=== PATIENT | male | born 1935 | race Caucasian/White ===

== ENCOUNTER 2016-12-05 03:40 | Emergency (ER) | payer MEDICARE, OTHER ==
[2016-12-05] MEDS ORDERED: LISI-538 (03:58)
[2016-12-05] MEDS ORDERED: SIMV20TA2 (03:58)
[2016-12-05] MEDS ORDERED: GLIP5TAB8 (03:58)
[2016-12-05] MEDS ORDERED: FURO20TA2 (03:58)
[2016-12-05] MEDS ORDERED: METO-346 (03:58)
[2016-12-05] MEDS ORDERED: PIOG30TA4 (03:58)
[2016-12-05] MEDS ORDERED: METF500T (03:58)
[2016-12-05 06:24] VITALS: BP 153/71
== END 2016-12-05 06:26 | disposition home or self-care (01) ==
LOC: M ED 04:43
DX: R19.7 Diarrhea, unspecified (principal)

== ENCOUNTER → 2017-01-18 | Outpatient (REF) | payer MEDICARE, OTHER ==
[~2017-01-18] MED LIST: FURO20TA2; GLIP5TAB8; LISI-538; METF500T; METO-346; PIOG30TA4; SIMV20TA2
[2017-01-18 19:29] LABS: ALBUMIN 3.6 GM/DL (3.2-5.2); ALBUMIN/GLOBULIN RATIO 0.9 (1.00-1.93); BILIRUBIN,TOTAL 0.6 MG/DL (0.2-1.0); CALCIUM LEVEL 8.8 MG/DL (8.8-10.2); CREATININE FOR GFR 1.53 MG/DL (0.70-1.30); FREE T4 0.95 NG/DL (0.76-1.46); GLOMERULAR FILTRATION RATE 46.7 (>35); POTASSIUM SERUM 4.7 MEQ/L (3.5-5.1); TOTAL PROTEIN 7.6 GM/DL (6.4-8.2)
[2017-01-18 19:30] LABS: FOLATE 23.6 NG/ML
[2017-01-18 19:51] LABS: MEAN CORPUSCULAR HEMOGLOBIN 32.7 pg (27.0-33.0); MEAN CORPUSCULAR HGB CONC 31.6 g/dl (32.0-36.5); MEAN CORPUSCULAR VOLUME 103.6 fl (80.0-96.0); WHITE BLOOD COUNT 4.8 K/mm3 (4.0-10.0)
== END ==
LOC: M SFHCADAM 12:17
PROVIDERS: ATTEND Physician Assistant
DX: I10 Essential (primary) hypertension (principal); E11.22 Type 2 diabetes mellitus with diabetic chronic kidney disease; E53.8 Deficiency of other specified B group vitamins
CPT/HCPCS: 80053; 82043; 82607; 82746; 83036; 84439; 84443; 85027; G0463

== ENCOUNTER 2017-03-27 17:05 | Emergency (ER) | payer MEDICARE, OTHER ==
[~2017-03-27] VITALS: Ht 180.3 cm; Wt 144.1 kg
[~2017-03-27 17:05] MED LIST changes: -FURO20TA2; +FURO20TA2 PO; -GLIP5TAB8; +GLIP5TAB8 PO; -LISI-538; +LISI-538 PO; -METF500T; +METF500T13 PO; -PIOG30TA4; +PIOG30TA4 PO; -SIMV20TA2; +SIMV20TA2 PO
[2017-03-27] MEDS ORDERED: NS 1,000 ML IV SCH (17:49)
[2017-03-27] MEDS ORDERED: KETOROLAC 30 MG/ML VIAL (J1885) IV ONE (18:00)
[2017-03-27] MEDS ORDERED: ONDANSETRON 4MG/2ML VIAL (J2405) IV ONE (18:00)
[2017-03-27 18:10] LABS: BASO % 0.5 % (0.0-1.0); EOS # 0.1 K/mm3 (0.0-0.50); EOS % 1.8 % (0.0-3.0); LARGE UNSTAINED CELL # 0.2 K/mm3 (0.0-0.4); LARGE UNSTAINED CELL % 3.8 % (0.0-4.0); LYMPH # 0.9 K/mm3 (1.5-4.5); LYMPH % 13.1 % (24.0-44.0); MEAN CORPUSCULAR HEMOGLOBIN 31.9 pg (27.0-33.0); MEAN CORPUSCULAR HGB CONC 33.1 g/dl (32.0-36.5); MEAN CORPUSCULAR VOLUME 96.3 fl (80.0-96.0); MONO # 0.5 K/mm3 (0.0-0.8); NEUTROPHILS # 3.7 K/mm3 (1.8-7.7); NEUTROPHILS % 71.8 % (36.0-66.0); PLATELET COUNT, AUTOMATED 230 k/mm3 (150-450); WHITE BLOOD COUNT 5.1 K/mm3 (4.0-10.0)
[2017-03-27 18:16] LABS: INR 1.07
[2017-03-27 18:33] LABS: ALBUMIN 2.9 GM/DL (3.2-5.2); ALBUMIN/GLOBULIN RATIO 0.66 (1.00-1.93); BILIRUBIN,DIRECT 0.2 MG/DL (0.0-0.2); BILIRUBIN,TOTAL 0.5 MG/DL (0.2-1.0); CALCIUM LEVEL 9.3 MG/DL (8.8-10.2); CREATININE FOR GFR 1.3 MG/DL (0.70-1.30); GLOMERULAR FILTRATION RATE 56.4 (>35); POTASSIUM SERUM 4.7 MEQ/L (3.5-5.1); TOTAL PROTEIN 7.3 GM/DL (6.4-8.2)
--- NOTE | 2017-03-27 19:10 | REPUSA ---
CLINICAL HISTORY: Abdominal pain. Patient said upper abdominal pain. TECHNIQUE: Multiple axial, coronal, sagittal CT images were obtained through the abdomen and pelvis without administration of oral or IV contrast material. FINDINGS: The liver is of uniform attenuation without mass or defect. There is no intra or extrahepatic biliar y ductal dilatation. Multiple calcified splenic granulomas are present. The gallbladder is within no rmal limits. The pancreas is of normal contour and attenuation characteristics. There is no evidenc e of adrenal mass. There is a 4 x 3.7 cm cyst noted in the lower pole of the right kidney laterally containing calcifica tions in the medial wall. Both kidneys are atrophic, each measuring approximately 7 cm in length. The y are lobulated. There is a nonobstructing 3 mm calculus noted in the lower pole of the right kidney. No renal mass is seen. There is no evidence for appendicitis. There is no bowel wall thickening. No evidence for small or l arge bowel obstruction. There is extensive mesenteric and retroperitoneal lymphadenopathy, lymph nod es measure up to 4 cm in cross section. The findings are most compatible with lymphoproliferative dis order. Further evaluation is recommended with PET/CT. There is no evidence of intrinsic or extrinsic bladder mass. Prostate gland is mildly enlarged containing calcifications. There is nonspecific fatty infiltration involving the pelvis of uncertain etiology. There is no lymphadenopathy noted in the pelvis or pelvic sidewall. Central lobular emphysema is noted. A 10 mm calcified granuloma is noted in the right lung base. Imag es of the lung bases show no evidence of pleural or parenchymal mass. There are no pleural effusions . The bony structures are free of lytic or blastic lesions. Multilevel degenerative changes are seen i nvolving the thoracolumbar spine. Scattered calcifications are seen involving the aorta and major branches compatible with atherosclero sis. IMPRESSION: 1. Extensive mesenteric and retroperitoneal lymphadenopathy most compatible with lymphoproliferative disorder. Further evaluation with PET/CT is recommended. 2. Sequelae of prior granulomatous disease. 3. Emphysema. 4. Additional findings as above. Thank you for your kind referral of this patient. We appreciate the opportunity to participate in thi s patient's care.
[2017-03-27] MEDS ORDERED: NAPR500T PO (19:24)
[2017-03-27] MEDS ORDERED: ZOFR4TAB3 PO (19:24)
[2017-03-27 19:30] VITALS: BP 154/65
--- NOTE | 2017-03-28 07:30 | ED PDOC ---
Post-Departure Follow-Up radiology rpeort faxed to Sabrina Liu MD Mar 28, 2017 07:30
== END 2017-03-27 19:37 | disposition home or self-care (01) ==
LOC: M ED 17:05
DX: I88.0 Nonspecific mesenteric lymphadenitis (principal); E11.9 Type 2 diabetes mellitus without complications; I10 Essential (primary) hypertension; E78.4 Other hyperlipidemia; Z79.01 Long term (current) use of anticoagulants; Z87.891 Personal history of nicotine dependence
CPT/HCPCS: 74176; 80048; 80076; 82150; 83690; 85025; 85610; 96374; 96375; 99283; J1885; J2405

== ENCOUNTER → 2017-04-09 | Outpatient (REF) | payer MEDICARE, OTHER ==
[~2017-04-09] MED LIST changes: +ALLO15TA PO; +ASPI81TA85 PO; +ASPI81TAEC PO; +HYOS125TA PO; +LORA0.5T11 PO; +MAG400TA PO; +METO1TAB87 PO; +METO25TA4 PO; +MORP20SO3 PO; +NAPR1TAB86 PO; +NAPR500T PO; +OMEP20CA3 PO; +VITA100072 PO; +ZOFR4TAB3 PO; +ZYLO300T4 PO
[2017-04-09 20:21] LABS: BASO % 0.2 % (0.0-1.0); EOS % 0.3 % (0.0-3.0); LARGE UNSTAINED CELL # 0.2 K/mm3 (0.0-0.4); LARGE UNSTAINED CELL % 2.2 % (0.0-4.0); LYMPH % 12.4 % (24.0-44.0); MEAN CORPUSCULAR HEMOGLOBIN 30.9 pg (27.0-33.0); MEAN CORPUSCULAR HGB CONC 32.7 g/dl (32.0-36.5); MEAN CORPUSCULAR VOLUME 94.6 fl (80.0-96.0); MONO # 0.6 K/mm3 (0.0-0.8); MONO % 8.9 % (0.0-5.0); NEUTROPHILS # 5.4 K/mm3 (1.8-7.7); PLATELET COUNT, AUTOMATED 256 k/mm3 (150-450); RED CELL DISTRIBUTION WIDTH 13.3 % (11.5-14.5); WHITE BLOOD COUNT 7.2 K/mm3 (4.0-10.0)
[2017-04-09 20:33] LABS: ALBUMIN 2.6 GM/DL (3.2-5.2); ALBUMIN/GLOBULIN RATIO 0.63 (1.00-1.93); BILIRUBIN,TOTAL 0.9 MG/DL (0.2-1.0); CALCIUM LEVEL 9.2 MG/DL (8.8-10.2); CREATININE FOR GFR 1.44 MG/DL (0.70-1.30); GLOMERULAR FILTRATION RATE 50.1 (>35); PERCENT SATURATION 14.7 % (19.7-50.0); POTASSIUM SERUM 4.9 MEQ/L (3.5-5.1); TOTAL PROTEIN 6.7 GM/DL (6.4-8.2)
== END ==
LOC: M SFHCADAM 14:29
PROVIDERS: ATTEND Physician Assistant Medical
DX: R10.84 Generalized abdominal pain (principal); R59.0 Localized enlarged lymph nodes; R19.5 Other fecal abnormalities; R63.0 Anorexia; Z79.899 Other long term (current) drug therapy; D63.8 Anemia in other chronic diseases classified elsewhere; R63.4 Abnormal weight loss

== ENCOUNTER → 2017-04-09 | Outpatient (CLI) | payer MEDICARE, OTHER ==
--- NOTE | 2017-04-09 16:00 | REP ---
ABDOMEN, FLAT, UPRIGHT PA CHEST, FIVE VIEWS: HISTORY: Abdominal pain. Air is present in the small and large intestine. A single dilated loop of intestine is present. There are no air fluid levels. There is no pneumoperitoneum. A calcified granuloma is present in the right lower lobe. Calcified pleural plaque is present in the right hemithorax. IMPRESSION: 1. Nonspecific bowel gas pattern. 2. Old granulomatous disease. Signed by Manuel Nuñez MD 04/09/2017 04:05 P
== END ==
LOC: M ADAMS 14:38
PROVIDERS: ATTEND Physician Assistant Medical
DX: R10.84 Generalized abdominal pain (principal); R59.0 Localized enlarged lymph nodes; R19.5 Other fecal abnormalities; R63.0 Anorexia; R63.4 Abnormal weight loss

== ENCOUNTER 2017-04-14 19:08 | Inpatient (IN) | payer MEDICARE, OTHER ==
[~2017-04-14] VITALS: Ht 180.3 cm; Wt 138.6 kg
[~2017-04-14 19:08] MED LIST changes: -ALLO15TA PO; -ASPI81TA85 PO; -ASPI81TAEC PO; -HYOS125TA PO; -LORA0.5T11 PO; -MAG400TA PO; -METO1TAB87 PO; -METO25TA4 PO; -MORP20SO3 PO; -NAPR1TAB86 PO; -OMEP20CA3 PO; -VITA100072 PO; -ZYLO300T4 PO
[2017-04-14] MEDS ORDERED: ASPI81TA85 PO (19:20)
[2017-04-14] MEDS ORDERED: NS 500 ML IV ONE (20:30)
[2017-04-14] MEDS: HumaLOG INSULIN (NovoLOG) PER UNIT SC SCH (21:00)
[2017-04-14 21:06] LABS: BASO % 0.1 % (0.0-1.0); EOS # 0.1 K/mm3 (0.0-0.50); EOS % 1.3 % (0.0-3.0); LARGE UNSTAINED CELL # 0.1 K/mm3 (0.0-0.4); LARGE UNSTAINED CELL % 1.1 % (0.0-4.0); LYMPH # 0.6 K/mm3 (1.5-4.5); LYMPH % 8.7 % (24.0-44.0); MEAN CORPUSCULAR HEMOGLOBIN 30.2 pg (27.0-33.0); MEAN CORPUSCULAR HGB CONC 31.7 g/dl (32.0-36.5); MEAN CORPUSCULAR VOLUME 95.3 fl (80.0-96.0); MONO # 0.5 K/mm3 (0.0-0.8); NEUTROPHILS # 5.3 K/mm3 (1.8-7.7); NEUTROPHILS % 80.8 % (36.0-66.0); PLATELET COUNT, AUTOMATED 303 k/mm3 (150-450); RED CELL DISTRIBUTION WIDTH 13.6 % (11.5-14.5); WHITE BLOOD COUNT 6.5 K/mm3 (4.0-10.0)
[2017-04-14 21:14] LABS: INR 1.26
[2017-04-14 21:36] LABS: ALBUMIN 2.5 GM/DL (3.2-5.2); ALBUMIN/GLOBULIN RATIO 0.57 (1.00-1.93); ALKALINE PHOSPHATASE 185 U/L (45-117); ALT/SGPT 162 U/L (12-78); AMYLASE 87 U/L (25-115); ANION GAP 11 MEQ/L (8-16); AST/SGOT 110 U/L (15-37); BILIRUBIN,DIRECT 0.6 MG/DL (0.0-0.2); BILIRUBIN,TOTAL 1.1 MG/DL (0.2-1.0); BLOOD UREA NITROGEN 30 MG/DL (7-18); CALCIUM LEVEL 9.5 MG/DL (8.8-10.2); CARBON DIOXIDE LEVEL 25 MEQ/L (21-32); CHLORIDE LEVEL 97 MEQ/L (98-107); CREATININE FOR GFR 1.41 MG/DL (0.70-1.30); GLOMERULAR FILTRATION RATE 51.4 (>35); GLUCOSE, FASTING 150 MG/DL (83-110); SODIUM LEVEL 133 MEQ/L (136-145); TOTAL PROTEIN 6.9 GM/DL (6.4-8.2)
[2017-04-14] MEDS ORDERED: NS 1,000 ML IV SCH (21:45)
[2017-04-14] MEDS ORDERED: ISOVUE-370 76% 100ML VIAL (Q9967) As Ordered ONE (22:12)
[2017-04-14] MEDS ORDERED: LORazepam 2 MG/ML VIAL (J2060) IV ONE (22:15)
[2017-04-14] MEDS ORDERED: GLUCAGON FOR INJ 1 MG VIAL (J1610) SC PRN (23:30)
[2017-04-14] MEDS ORDERED: GLUCOSE 4 GM CHEW TABLET PO PRN (23:30)
[2017-04-14] MEDS ORDERED: DEXTROSE 50% 50 ML SYRINGE IV PRN (23:30)
[2017-04-14 23:32] LABS: RETIC HEMOGLOBIN CONTENT CHr 30.1 PG (24-36); RETICULOCYTE ABSOLUTE ADVIA212 80 x10(9)/L (17-77)
[2017-04-14 23:34] LABS: GAMMA GLUTAMYLTRANSPEPTIDASE 194 U/L (15-85); PERCENT SATURATION 16.9 % (19.7-50.0); TOTAL IRON BINDING CAPACITY 261 UG/DL (250-450)
[2017-04-14 23:40] LABS: REASON FOR REVIEW COMPREHENSIVE REVIEW
[2017-04-14] MEDS ORDERED: METO25TA4 PO (23:43)
--- NOTE | 2017-04-15 | REPUSA ---
CLINICAL HISTORY: LIPASE ELEVATION TECHNIQUE: Multiple axial, coronal, sagittal CT images were obtained through the abdomen and pelvis with administration of IV contrast material. FINDINGS: Comparison is made with a prior study dated 03/27/17. The liver is of uniform attenuation without mass or defect. There is no intra or extrahepatic biliary ductal dilatation. Multiple calcified splenic granulomas are present. The gallbladder is within ashley l limits. The pancreas is of normal contour and attenuation characteristics. There is no evidence of adrenal mass. There is a 4 x 3.7 cm cyst noted in the lower pole of the right kidney laterally containing calcifica tions in the medial wall. Both kidneys are atrophic, each measuring approximately 7 cm in length. They are lobulated. There is a nonobstructing 3 mm calculus noted in the lower pole of the right kidney. No renal mass is seen. There is no evidence for appendicitis. There is no bowel wall thickening. No evidence for small or large bowel obstruction. There is extensive mesenteric and retroperitoneal lymphadenopathy, lymph nodes measure up to 4 cm in cross section. The findings are most compatible with lymphoproliferative disorder. Further evaluation is recommended with PET/CT. There is no evidence of intrinsic or extrinsic bladder mass. Prostate gland is mildly enlarged containing calcifications. There is nonspecific fatty infiltration involving the pelvis of uncertain etiology. There is no lymphadenopathy noted in the pelvis or pelvic sidewall. Central lobular emphysema is noted. A 10 mm calcified granuloma is noted in the right lung base. Images of the lung bases show no evidence of pleural or parenchymal mass. There are no pleural effusions. The bony structures are free of lytic or blastic lesions. Multilevel degenerative changes are seen involving the thoracolumbar spine. Scattered calcifications are seen involving the aorta and major branches compatible with atherosclerosis. IMPRESSION: 1. No interval change. 2. Extensive mesenteric and retroperitoneal lymphadenopathy most compatible with lymphoproliferative disorder. Further evaluation with PET/CT was previously recommended. 3. Sequelae of prior granulomatous disease. 4. Emphysema. 5. Additional findings as above. Thank you for your kind referral of this patient. We appreciate the opportunity to participate in thi s patient's care.
[2017-04-15] MEDS ORDERED: METOCLOPRAMIDE INJ 10MG/2ML VIAL (J2765) IV PRN (00:30)
[2017-04-15] MEDS: MORPHINE 2 MG/ML 1ML SYRINGE IV PRN ×2 (01:17→09:53)
[2017-04-15 01:43] VITALS: BP 151/67
[2017-04-15] MEDS ORDERED: FUROSEMIDE 20 MG/2 ML VIAL (J1940) IV ONE (01:45)
[2017-04-15] MEDS ORDERED: LEVALBUTEROL 1.25 MG/0.5 ML CONCENTRATE NEB INH PRN (02:00)
[2017-04-15] MEDS: METOPROLOL TART 25 MG TABLET PO SCH ×3 (02:18→22:08)
--- NOTE | 2017-04-15 03:39 | HPE ---
DATE OF ADMISSION: 04/15/2017 PRIMARY CARE PROVIDER: Chelsea Mcbride, physician certified pharmacist assistant. Patient will be assigned to Dr. Ross Woodruff at 7 a.m. on 04/15/2017. CHIEF COMPLAINT: Abdominal pian. HISTORY OF PRESENTING ILLNESS: This is an 81-year-old male with history of chronic abdominal pain described as band-like in the bilateral lower quadrant accompanied with diarrhea 2-3 times a day, nonbloody, non-mucousy, formed with very watery diarrhea. No constipation, fever or chills at home. Patient describes the abdominal pain as steady and worsening over the past few days, improved slightly when he was taking smoothies. However, in the past 48 hours he has seen some increased abdominal distention, profound fatigue and weakness limiting his activities of daily living. Patient has had about a 10-pound weight loss over the past few days with decrease in oral intake and decrease in appetite. He denies any night sweats. No prior history of leukemias, lymphomas or other solid cancers. He denies any prior colonoscopy in the past. He was scheduled for a PET scan on Saturday04/16/2017 and has had on and off episodes of this abdominal pain over the past few months. Patient has not taken any medications for this pain. He denies any dysuria, urgency, frequency. Denies bright red blood per rectum, melena. Denies any hematuria or cocoa colored stool. Denies any joint or muscle aches, headaches, changes in vision, sore throat, rhinorrhea. He has chronic lower extremity edema and has had limitation of his activities due to generalized weakness. In the emergency room (ER), he was found to have abnormal liver function tests with elevated bilirubin at 1.1, GGT positive 194, despite denying any recent alcohol use, had quit alcohol about 26 years ago. Lipase level was slightly elevated at 396. Hospitalist service was called for admission for abdominal pain when CT abdomen and pelvis showed mesenteric and retroperitoneal lymphadenopathy measuring up to 4 cm compatible with lymphoproliferative disorder. PAST MEDICAL HISTORY: 1. Diabetes. 2. Hypertension. 3. Hypercholesterolemia. 4. Emphysema. 5. Chronic obstructive pulmonary disease (COPD). 6. History of SCC, BCC. 7. Osteoarthritis. 8. Coronary artery disease (CAD) with a stress echocardiogram April 2010 [facility], ischemia noted inferior apical wall. 9. Hypermagnesemia. 10. Macrocytic anemia. 11. Vitamin B12 deficiency. 12. Vitamin D deficiency. 13. 1.4 x 1.3 cm left infrahilar nodule on CT of the chest. 14. Peripheral edema, chronic due to venous insufficiency. 15. Chronic kidney disease stage III. 16. Repeat echocardiogram 04/02/2016, ejection fraction (EF) of 65%, normal diastolic function, moderate pulmonary hypertension. 17. Right knee osteoarthritis. ALLERGIES: No known drug allergies. HOME MEDICATIONS: - aspirin 81 mg daily - Lasix 20 mg daily - glipizide 7.5 mg daily - lisinopril 20 mg daily - metformin 1 gram twice a day - simvastatin 20 mg daily - pioglitazone 30 mg daily SOCIAL HISTORY: Patient denies any recent alcohol use, quit alcohol 26 years ago. Previously smoked cigarettes, history of COPD. Denies any recent cigarette use. Retired. FAMILY HISTORY: Noncontributory due to age. REVIEW OF SYSTEMS: Per history of present illness (HPI), 12-point systems otherwise negative. PHYSICAL EXAMINATION: Temperature 98.9, pulse 108 sinus rhythm, respiratory rate 16, blood pressure 120/56, 96% on room air. Generally, awake, alert, oriented times three, answering questions appropriately. Anicteric sclerae. No jaundice. Pupils are round and reactive to light and accommodation. Extraocular muscles are intact. Dry mucous membranes. No lymphadenopathy, thyromegaly or pharyngeal erythema. Lungs are clear to auscultation. No wheezing, rales or rhonchi. Heart: S1, S2, sinus tachycardia. No murmurs, rubs or gallops. Abdomen is obese, soft, distended. No rebound, guarding. Positive bowel sounds. No tenderness on deep palpation. Extremities: 2+ pitting edema to the sacrum. White count 6.5, hemoglobin 10.6, hematocrit 33.5, platelet count 303, 80% neutrophils. Reticulocyte count elevated. Peripheral smear is pending. Sodium 133, potassium 5, chloride 97, bicarbonate 25, BUN 30, creatinine 1.41, glucose 150, lactic acid 1.7, iron 44, TIBC 261, total bilirubin 1.1, direct bilirubin 0.6, GGT 194, AST 110, ALT 162, alkaline phosphatase 185, total CK 37, MB fraction 1.1, troponin less than 0.02. Total protein 6.9, albumin of 2.5, amylase 87, lipase 396. CT abdomen and pelvis extensive mesenteric retroperitoneal lymphadenopathy most compatible with lymphoproliferative disease. Further evaluation with PET and CT was previously recommended. Sequelae of prior granulomatous disease emphysema. ASSESSMENT AND PLAN: This is an 81-year-old male with a prior history significant for diabetes, hypertension, hypercholesterolemia, obesity, body mass index (BMI) of 42, chronic obstructive pulmonary disease (COPD), intralobular prior granulomatous disease, presents to the emergency room with several months history of increasing bilateral lower quadrant abdominal pain, found to have retroperitoneal extensive mesenteric lymphadenopathy compatible with possible lymphoproliferative disorder with worsening symptoms over the past week accompanied with 10-pound weight loss over the past few days. No fever, chills, with generalized fatigue and weakness. Patient has also been having diarrhea twice daily, watery, nonbloody, non-mucousy. Patient will be admitted as an inpatient for two midnights assigned to Dr. Ross Woodruff, [facility] as an inpatient for two midnights for the following issues: 1. Abdominal pain with transaminitis. CT abdomen and pelvis is concerning for possible lymphoproliferative disorder. Therefore, will obtain a peripheral blood smear, flow cytometry if possible, reticulocyte count, LDH, haptoglobin to rule out autoimmune hemolytic anemia. GGT is also elevated. Magnetic resonance cholangiopancreatography (MRCP) in the morning as ordered by Dr. Jiménez, emergency room (ER) physician, to rule out biliary ductal dilatation or strictures. Will also check for urine hemosiderin. Differential diagnosis includes chronic lymphocytic leukemia (CLL), chronic myelocytic leukemia (CML), PNH. Defer to Dr. Woodruff for hematology consultation. Malignancy to be worked up as outpatient with a PET scan scheduled for 04/16/2017 and directed biopsy per primary care physician. 2. Chronic kidney disease stage III. At baseline. Avoid nephrotoxins. Renally dose all medications. Resume home dose of Lasix. 3. Type 2 diabetes. Due to abdominal pain, a full liquid diet for now, advance as tolerated to consistent carbohydrate diet. Check A1c. We are withholding patient's oral hypoglycemic due to recent contrasted study and risk of contrast-induced nephropathy. At this time, will continue to monitor patient's creatinine. Insulin in sliding scale for now. Full liquid diet due to abdominal pain and advance to consistent carbohydrate as needed. 4. Hypertension, controlled. We are holding off on patient's angiotensin-converting enzyme (EMI) inhibitor due to recent contrast study and possible risk of nephropathy. May continue home dose of metoprolol. 5. Weight loss. Check thyroid-stimulating hormone (TSH). Concerning for malignancy. 6. Anemia. Rule out hemolytic anemia and gastrointestinal (GI) blood loss. Obtain iron studies. Stool for blood. Peripheral blood smear. Check haptoglobin, direct Antonette test, LDH. No acute indication for red blood cell transfusion unless patient has worsening symptoms or hemoglobin is less than 8. 7. Mild hyponatremia. Monitor for symptoms. 8. History of SCC, BCC, chronic. 9. Obesity, BMI of 42. Chronic complicating acute issues. 10. Deep venous thrombosis (DVT) prophylaxis with subcutaneous heparin and compression stockings. 11. Hyperlipidemia. On chronic simvastatin. Patient will be assigned to Dr. Ross Woodruff at 7 a.m. on 04/15/2017.
[2017-04-15 05:58] LABS: BASO % 0.2 % (0.0-1.0); EOS % 0.8 % (0.0-3.0); LARGE UNSTAINED CELL # 0.1 K/mm3 (0.0-0.4); LYMPH # 0.7 K/mm3 (1.5-4.5); LYMPH % 8.4 % (24.0-44.0); MEAN CORPUSCULAR HEMOGLOBIN 30.3 pg (27.0-33.0); MEAN CORPUSCULAR HGB CONC 31.8 g/dl (32.0-36.5); MEAN CORPUSCULAR VOLUME 95.4 fl (80.0-96.0); MONO # 0.6 K/mm3 (0.0-0.8); MONO % 8.8 % (0.0-5.0); NEUTROPHILS # 5.2 K/mm3 (1.8-7.7); NEUTROPHILS % 79.8 % (36.0-66.0); PLATELET COUNT, AUTOMATED 266 k/mm3 (150-450); RED CELL DISTRIBUTION WIDTH 13.5 % (11.5-14.5); WHITE BLOOD COUNT 6.5 K/mm3 (4.0-10.0)
[2017-04-15 06:00] VITALS: BP 130/60
[2017-04-15 06:22] LABS: ALBUMIN 2.2 GM/DL (3.2-5.2); ALBUMIN/GLOBULIN RATIO 0.58 (1.00-1.93); ALKALINE PHOSPHATASE 153 U/L (45-117); ALT/SGPT 124 U/L (12-78); AMYLASE 117 U/L (25-115); ANION GAP 11 MEQ/L (8-16); AST/SGOT 76 U/L (15-37); BLOOD UREA NITROGEN 24 MG/DL (7-18); CALCIUM LEVEL 8.3 MG/DL (8.8-10.2); CARBON DIOXIDE LEVEL 25 MEQ/L (21-32); CHLORIDE LEVEL 99 MEQ/L (98-107); CREATININE FOR GFR 1.34 MG/DL (0.70-1.30); GLOMERULAR FILTRATION RATE 54.5 (>35); GLUCOSE, FASTING 155 MG/DL (83-110); SODIUM LEVEL 135 MEQ/L (136-145)
[2017-04-15] MEDS: HEPARIN SOD (PORCINE) 5000 UNITS/ML VIAL SQ SCH ×3 (06:30→22:06)
[2017-04-15 06:36] LABS: POTASSIUM SERUM 5.5 MEQ/L (3.5-5.1)
[2017-04-15] MEDS: LEVALBUTEROL 1.25 MG/0.5 ML CONCENTRATE NEB INH SCH ×4 (07:23→19:26)
[2017-04-15] MEDS ORDERED: METOPROLOL TART 25 MG TABLET PO SCH (09:00)
[2017-04-15] MEDS: PANTOPRAZOLE 40MG TAB (PROTONIX) PO SCH (09:51)
[2017-04-15] MEDS: HumaLOG INSULIN (NovoLOG) PER UNIT SC SCH ×5 (09:51→22:07)
[2017-04-15] MEDS: FUROSEMIDE 20 MG TAB PO SCH (09:51)
[2017-04-15] MEDS ORDERED: LIDOCAINE 1% MDV 20ML VIAL As Ordered ONE (12:48)
--- NOTE | 2017-04-15 13:54 | IPNPDOC ---
Subjective Date Seen The patient was seen on 04/15/17. Subjective Chief Complaint/HPI The patient is a 81-year-old male admitted with a reason for visit of Abdominal Pain, Diarrhea,Mesenteric Lymphadenopaty. Events since last encounter Patient unable to proceed with MRCP today due to claustrophobia. CT + for mesenteric LAD. Patient admits to early satiety, weight loss. Nausea if eats a full meal. Was tolerating shakes at home. Constitutional: Reports: Weakness, Fatigue, Weight Loss, Lethargy, Denies: Chills, Fever, Night Sweats ENT: Denies: Head Aches, Ear Pain, Dysphagia Skin: Denies: Rash, Lesions, Breakdown Pulmonary: Reports: Dyspnea (with moderate activity), Denies: Cough Cardiovascular: Denies: Chest Pain, Palpitations, Orthopnea, Paroxysmal Noc. Dyspnea, Lt Headedness Gastrointestinal: Reports: Nausea, Other Symptoms (early satiety, poor appetite ), Denies: Vomiting, Abdominal Pain, Diarrhea, Constipation Genitourinary: Denies: Dysuria, Frequency, Incontinence, Retention Psych: Reports: Mood Normal, Denies: Depression, Memory Issues Objective Physical Examination General Exam: Positive: Alert, No Acute Distress Eye Exam: Positive: PERRLA, Conjunctiva & lids normal, EOMI, Negative: Sclera icteric ENT Exam: Positive: Atraumatic, Mucous membr. moist/pink, Pharynx Normal Neck Exam: Positive: Supple, Negative: JVD, thyromegaly Chest Exam: Positive: Clear to auscultation, Normal air movement Abdomen Exam: Positive: Normal bowel sounds, Soft, Negative: Tenderness, Hepatospenomegaly Extremity Exam: Positive: Normal pulses, Negative: Clubbing, Cyanosis, Edema Psych Exam: Positive: Mental status NL, Mood NL, Oriented x 3 Assessment /Plan Problems (1) Mesenteric lymphadenopathy Status: Acute Problem Text: plan for retroperitoneal bx with IR. Discussed with Dr. Albrecht. (2) Transaminitis Status: Acute Problem Text: Unabel to proceed with MRCP due to claustrophobia. Will monitor LFT. consider further imaging pending bx results/LFT. (3) Abdominal pain Status: Acute Problem Specific Plan: Monitor Clinically Problem Text: tolerating full liquids. will add on ensure. (4) Diabetes mellitus Status: Chronic Problem Text: [id number] 8.5 12/2016. RISS per protocol (5) HTN (hypertension) Status: Chronic Response to Treatment: Stable Problem Specific Plan: Monitor Clinically (6) Hyperlipidemia Status: Chronic Response to Treatment: Stable Problem Specific Plan: Monitor Clinically (7) CKD (chronic kidney disease), stage III Status: Chronic Response to Treatment: Stable Problem Specific Plan: Monitor Clinically Problem Text: baseline Cr. 1.3-1.4 Plan/VTE VTE Prophylaxis Ordered?: Yes VS, I&O, 24H, Fishbone Vital Signs/I&O Vital Signs Date Time Temp Pulse Resp B/P (MAP) Pulse Ox O2 Delivery O2 Flow Rate FiO2 04/15/17 10:03 18 04/15/17 06:00 98.6 102 130/60 (83) 95 Room Air I&O- Last 24 Hours up to 6 AM 04/15/17 05:59 Intake Total 500 ml Output Total 750 ml Balance -250 ml Laboratory Data 24H LABS Laboratory Tests 2 04/14/17 20:56: White Blood Count 6.5, Red Blood Count 3.51L, Hemoglobin 10.6L, Hematocrit 33.5L , Mean Corpuscular Volume 95.3, Mean Corpuscular Hemoglobin 30.2, Mean Corpuscular Hemoglobin Concent 31.7L, Red Cell Distribution Width 13.6, Platelet Count 303, Neutrophils (%) (Auto) 80.8H, Lymphocytes (%) (Auto) 8.7L, Monocytes (%) (Auto) 8.0H, Eosinophils (%) (Auto) 1.3, Basophils (%) (Auto) 0.1 , Neutrophils # (Auto) 5.3, Lymphocytes # (Auto) 0.6L, Monocytes # (Auto) 0.5, Eosinophils # (Auto) 0.1, Basophils # (Auto) 0.0, Large Unclassified Cells % 1.1 , Large Unclassified Cells # 0.1, Differential Slide Review Report, Differential Pathologist's Review COMPREHENSIVE REVIEW, Peripheral Blood Smear Path Consult PERIPHERAL SMEAR, Absolute Reticulocyte Count 80H, Percent Reticulocyte Count 2.30H, Reticulocyte Hgb Content (CHr) 30.1, Prothrombin Time 16.0H, Prothromb Time International Ratio 1.26, Activated Partial Thromboplast Time 31.5, Anion Gap 11, Glomerular Filtration Rate 51.4, Lactic Acid Level 1.7 , Calcium Level 9.5, Iron Level 44L, Total Iron Binding Capacity 261, Transferrin % Saturation 16.9L, Aspartate Amino Transf (AST/SGOT) 110H, Alanine Aminotransferase (ALT/SGPT) 162H, Gamma Glutamyl Transpeptidase 194H, Alkaline Phosphatase 185H, Total Bilirubin 1.1H, Direct Bilirubin 0.6H, Total Creatine Kinase 37L, Creatine Kinase MB 1.1, Creatine Kinase MB Relative Index 2.97, Troponin I < 0.02, Total Protein 6.9, Albumin 2.5L, Albumin/Globulin Ratio 0.57L , Amylase Level 87, Lipase 396H 04/14/17 22:35: Urine Appearance HAZY, Urine Color YELLOW, Urine pH 5.0, Urine Specific Dorr 1.013, Urine Protein NEGATIVE, Urine Glucose (UA) NEGATIVE, Urine Ketones NEGATIVE, Urine Urobilinogen 0.2, Urine Bilirubin NEGATIVE, Urine Leukocyte Esterase NEGATIVE, Urine Blood NEGATIVE, Urine Nitrite NEGATIVE, Urine WBC (Auto ) 3, Urine RBC (Auto) 3, Urine Hyaline Casts (Auto) 3, Urine Bacteria (Auto) NEGATIVE, Urine Squamous Epithelial Cells 0, Urine Mucus (Auto) SMALL, Urine Sperm (Auto) 04/15/17 01:49: Bedside Glucose (Misc Panel) 145H 04/15/17 05:44: White Blood Count 6.5, Red Blood Count 3.22L, Hemoglobin 9.7L, Hematocrit 30.7L , Mean Corpuscular Volume 95.4, Mean Corpuscular Hemoglobin 30.3, Mean Corpuscular Hemoglobin Concent 31.8L, Red Cell Distribution Width 13.5, Platelet Count 266, Neutrophils (%) (Auto) 79.8H, Lymphocytes (%) (Auto) 8.4L, Monocytes (%) (Auto) 8.8H, Eosinophils (%) (Auto) 0.8, Basophils (%) (Auto) 0.2 , Neutrophils # (Auto) 5.2, Lymphocytes # (Auto) 0.7L, Monocytes # (Auto) 0.6, Eosinophils # (Auto) 0.0, Basophils # (Auto) 0.0, Large Unclassified Cells % 2.0 , Large Unclassified Cells # 0.1, Anion Gap 11, Glomerular Filtration Rate 54.5 , Calcium Level 8.3L, Aspartate Amino Transf (AST/SGOT) 76H, Alanine Aminotransferase (ALT/SGPT) 124H, Alkaline Phosphatase 153H, Total Bilirubin 1.0 , Total Protein 6.0L, Albumin 2.2L, Albumin/Globulin Ratio 0.58L, Amylase Level 117H, Lipase 1026H, Blood Urea Nitrogen 24H, Creatinine 1.34H, Sodium Level 135L , Potassium Level 5.5H, Chloride Level 99, Carbon Dioxide Level 25, Lactate Dehydrogenase 308H, Hepatitis A IgM Antibody NEGATIVE, Hepatitis B Surface Antigen NEGATIVE, Hepatitis B Core IgM Antibody NEGATIVE, Hepatitis C Antibody Index 0.1 CBC/BMP Laboratory Tests 04/14/17 20:56 Red Blood Count 3.51 L, Mean Corpuscular Volume 95.3, Mean Corpuscular Hemoglobin 30.2, Mean Corpuscular Hemoglobin Concent 31.7 L, Red Cell Distribution Width 13.6, Neutrophils (%) (Auto) 80.8 H, Lymphocytes (%) (Auto) 8.7 L, Monocytes (%) (Auto) 8.0 H, Eosinophils (%) (Auto) 1.3, Basophils (%) ( Auto) 0.1, Neutrophils # (Auto) 5.3, Lymphocytes # (Auto) 0.6 L, Monocytes # ( Auto) 0.5, Eosinophils # (Auto) 0.1, Basophils # (Auto) 0.0 04/15/17 05:44 Red Blood Count 3.22 L, Mean Corpuscular Volume 95.4, Mean Corpuscular Hemoglobin 30.3, Mean Corpuscular Hemoglobin Concent 31.8 L, Red Cell Distribution Width 13.5, Neutrophils (%) (Auto) 79.8 H, Lymphocytes (%) (Auto) 8.4 L, Monocytes (%) (Auto) 8.8 H, Eosinophils (%) (Auto) 0.8, Basophils (%) ( Auto) 0.2, Neutrophils # (Auto) 5.2, Lymphocytes # (Auto) 0.7 L, Monocytes # ( Auto) 0.6, Eosinophils # (Auto) 0.0, Basophils # (Auto) 0.0, Calcium Level 8.3 L , Aspartate Amino Transf (AST/SGOT) 76 H, Alanine Aminotransferase (ALT/SGPT) 124 H, Lactate Dehydrogenase 308 H, Alkaline Phosphatase 153 H, Total Bilirubin 1.0, Total Protein 6.0 L, Albumin 2.2 L 04/15/17 10:16 Attending Note Attending Note In CT for Bx of retroperitoneal nodes, patient suddenly became fearful, disoriented and refused procedure. VS stable WNL except for HR 104. Will attempt again with some pre-procedure anxiolytic. Aparna Luna Apr 15, 2017 13:54 Ross Woodruff MD Apr 15, 2017 15:41
--- NOTE | 2017-04-15 17:20 | REP ---
CT GUIDED NEEDLE BIOPSY: The procedure was performed by KIMBERLEY Marcos under the direct supervision of Dr. Albrecht. The procedure along with its risks, benefits, and complications were discussed with the patient prior to the procedure. Informed consent was obtained both verbally and written. The patient was placed in a supine position on the CT table. The mesenteric lymph node was localized under CT guidance. The patient was prepped and draped in the usual sterile fashion. A procedural "time out" was performed to ensure that the correct patient, site and procedure were being performed. Local anesthesia was achieved using 10 mL of 1% Xylocaine. The needle was inserted under CT guidance. At this point in the procedure the patient decided that he was too uncomfortable and could not tolerate to complete the procedure. The procedure was terminated and I spoke with the patient's referring provider. They will try and get this achieved at a later date with sedation. Reviewed by KIMBERLEY Bermeo 04/16/2017 11:16 AEdited and Signed by Andrew Albrecht MD 04/16/2017 12:30 P
[2017-04-15] MEDS: LEVEMIR (INSULIN DETEMIR) 1 UNITS/0.01ML SC SCH (21:00)
[2017-04-15 22:00] VITALS: BP 134/58
[2017-04-15] MEDS: SIMVASTATIN 20 MG TAB PO SCH (22:07)
[2017-04-16 06:00] VITALS: BP 132/63
[2017-04-16] MEDS: HEPARIN SOD (PORCINE) 5000 UNITS/ML VIAL SQ SCH (06:07)
[2017-04-16 06:30] LABS: ALBUMIN 1.9 GM/DL (3.2-5.2); ALBUMIN/GLOBULIN RATIO 0.41 (1.00-1.93); CALCIUM LEVEL 8.7 MG/DL (8.8-10.2); CREATININE FOR GFR 1.48 MG/DL (0.70-1.30); GLOMERULAR FILTRATION RATE 48.6 (>35); POTASSIUM SERUM 4.9 MEQ/L (3.5-5.1); TOTAL PROTEIN 6.5 GM/DL (6.4-8.2)
[2017-04-16 06:42] LABS: BASO % 0.3 % (0.0-1.0); EOS % 0.1 % (0.0-3.0); LARGE UNSTAINED CELL # 0.2 K/mm3 (0.0-0.4); LARGE UNSTAINED CELL % 2.9 % (0.0-4.0); LYMPH # 0.5 K/mm3 (1.5-4.5); LYMPH % 6.7 % (24.0-44.0); MEAN CORPUSCULAR HEMOGLOBIN 30.2 pg (27.0-33.0); MEAN CORPUSCULAR HGB CONC 32.3 g/dl (32.0-36.5); MEAN CORPUSCULAR VOLUME 93.5 fl (80.0-96.0); MONO # 0.6 K/mm3 (0.0-0.8); MONO % 8.5 % (0.0-5.0); NEUTROPHILS # 5.5 K/mm3 (1.8-7.7); NEUTROPHILS % 81.5 % (36.0-66.0); PLATELET COUNT, AUTOMATED 266 k/mm3 (150-450); RED CELL DISTRIBUTION WIDTH 13.2 % (11.5-14.5); WHITE BLOOD COUNT 6.8 K/mm3 (4.0-10.0)
[2017-04-16] MEDS: LEVALBUTEROL 1.25 MG/0.5 ML CONCENTRATE NEB INH SCH ×4 (07:12→19:47)
[2017-04-16] MEDS: FUROSEMIDE 20 MG TAB PO SCH (08:42)
[2017-04-16] MEDS: METOPROLOL TART 25 MG TABLET PO SCH ×2 (08:44→20:12)
[2017-04-16] MEDS: HumaLOG INSULIN (NovoLOG) PER UNIT SC SCH ×4 (08:45→20:12)
[2017-04-16] MEDS: PANTOPRAZOLE 40MG TAB (PROTONIX) PO SCH (08:47)
[2017-04-16] MEDS ORDERED: LORazepam 2 MG/ML VIAL (J2060) IV ONE (10:00)
[2017-04-16] MEDS ORDERED: ACETAMINOPHEN TAB 650MG DOSE (2X325MG) PO ONE (10:00)
--- NOTE | 2017-04-16 10:05 | IPNPDOC ---
Subjective Date Seen The patient was seen on 04/16/17. Subjective Chief Complaint/HPI The patient is a 81-year-old male admitted with a reason for visit of Abdominal Pain, Diarrhea,Mesenteric Lymphadenopaty. Events since last encounter Unable to follow through with bx procedure due to anxiety/confusion. States ready to proceed today. Slept better last night. Tolerating full liquid diet. + flatus, no BM Constitutional: Denies: Chills, Fever, Night Sweats ENT: Denies: Head Aches, Ear Pain, Dysphagia Skin: Denies: Rash, Lesions, Breakdown Pulmonary: Denies: Dyspnea, Cough Cardiovascular: Denies: Chest Pain, Palpitations, Orthopnea, Paroxysmal Noc. Dyspnea, Lt Headedness Gastrointestinal: Denies: Nausea, Vomiting, Abdominal Pain, Diarrhea, Constipation Genitourinary: Denies: Dysuria, Frequency, Incontinence, Retention Psych: Reports: Mood Normal, Denies: Depression, Memory Issues Objective Physical Examination General Exam: Positive: Alert, No Acute Distress Eye Exam: Positive: PERRLA, Conjunctiva & lids normal, EOMI, Negative: Sclera icteric ENT Exam: Positive: Atraumatic, Mucous membr. moist/pink, Pharynx Normal Neck Exam: Positive: Supple, Negative: JVD, thyromegaly Chest Exam: Positive: Clear to auscultation, Normal air movement Abdomen Exam: Positive: Normal bowel sounds, Soft, Negative: Tenderness, Hepatospenomegaly Extremity Exam: Positive: Normal pulses, Negative: Clubbing, Cyanosis, Edema Psych Exam: Positive: Mental status NL, Mood NL, Oriented x 3 Assessment /Plan Problems (1) Mesenteric lymphadenopathy Status: Acute Problem Text: Re-attempt bx today. Pre-med with Lorazepam and Tylenol. plan for retroperitoneal bx with IR. Discussed with Dr. Albrecht. (2) Transaminitis Status: Acute Problem Text: LFT improved today. re-eval lipase and ammonia level. Unable to proceed with MRCP due to claustrophobia. Will monitor LFT. consider further imaging pending bx results/LFT. (3) Abdominal pain Status: Acute Problem Specific Plan: Monitor Clinically Problem Text: tolerating full liquids. will add on ensure. (4) Diabetes mellitus Status: Chronic Problem Text: hgba1c 8.5 12/2016. RISS per protocol (5) HTN (hypertension) Status: Chronic Response to Treatment: Stable Problem Specific Plan: Monitor Clinically (6) Hyperlipidemia Status: Chronic Response to Treatment: Stable Problem Specific Plan: Monitor Clinically (7) CKD (chronic kidney disease), stage III Status: Chronic Response to Treatment: Stable Problem Specific Plan: Monitor Clinically Problem Text: baseline Cr. 1.3-1.4 Plan/VTE VTE Prophylaxis Ordered?: Yes VS, I&O, 24H, Fishbone Vital Signs/I&O Vital Signs Date Time Temp Pulse Resp B/P (MAP) Pulse Ox O2 Delivery O2 Flow Rate FiO2 04/16/17 08:44 122 134/63 04/16/17 06:00 98.7 19 92 Room Air I&O- Last 24 Hours up to 6 AM 04/16/17 06:00 Intake Total 360 ml Output Total 0 ml Balance 360 ml Laboratory Data 24H LABS Laboratory Tests 2 04/15/17 17:06: Bedside Glucose (Misc Panel) 249H 04/15/17 20:25: Bedside Glucose (Misc Panel) 258H 04/16/17 05:47: Anion Gap 9, Glomerular Filtration Rate 48.6, Blood Urea Nitrogen 24H, Creatinine 1.48H, Sodium Level 134L, Potassium Level 4.9, Chloride Level 99, Carbon Dioxide Level 26, Calcium Level 8.7L, Aspartate Amino Transf (AST/SGOT) 43H, Alanine Aminotransferase (ALT/SGPT) 86H, Alkaline Phosphatase 126H, Total Bilirubin 1.0, Total Protein 6.5, Albumin 1.9L, Albumin/Globulin Ratio 0.41L 04/16/17 05:48: White Blood Count 6.8, Red Blood Count 3.00L, Hemoglobin 9.1L, Hematocrit 28.0L , Mean Corpuscular Volume 93.5, Mean Corpuscular Hemoglobin 30.2, Mean Corpuscular Hemoglobin Concent 32.3, Red Cell Distribution Width 13.2, Platelet Count 266, Neutrophils (%) (Auto) 81.5H, Lymphocytes (%) (Auto) 6.7L, Monocytes (%) (Auto) 8.5H, Eosinophils (%) (Auto) 0.1, Basophils (%) (Auto) 0.3, Neutrophils # (Auto) 5.5, Lymphocytes # (Auto) 0.5L, Monocytes # (Auto) 0.6, Eosinophils # (Auto) 0.0, Basophils # (Auto) 0.0, Large Unclassified Cells % 2.9 , Large Unclassified Cells # 0.2 CBC/BMP Laboratory Tests 04/15/17 10:16 04/16/17 05:47 Calcium Level 8.7 L, Aspartate Amino Transf (AST/SGOT) 43 H, Alanine Aminotransferase (ALT/SGPT) 86 H, Alkaline Phosphatase 126 H, Total Bilirubin 1.0, Total Protein 6.5, Albumin 1.9 L 04/16/17 05:48 Red Blood Count 3.00 L, Mean Corpuscular Volume 93.5, Mean Corpuscular Hemoglobin 30.2, Mean Corpuscular Hemoglobin Concent 32.3, Red Cell Distribution Width 13.2, Neutrophils (%) (Auto) 81.5 H, Lymphocytes (%) (Auto) 6.7 L, Monocytes (%) (Auto) 8.5 H, Eosinophils (%) (Auto) 0.1, Basophils (%) ( Auto) 0.3, Neutrophils # (Auto) 5.5, Lymphocytes # (Auto) 0.5 L, Monocytes # ( Auto) 0.6, Eosinophils # (Auto) 0.0, Basophils # (Auto) 0.0 Aparna Luna Apr 16, 2017 10:05 Ross Woodruff MD Apr 17, 2017 15:55
[2017-04-16] MEDS ORDERED: LIDOCAINE 1% MDV 20ML VIAL As Ordered ONE (12:06)
[2017-04-16 14:00] VITALS: BP 113/57
--- NOTE | 2017-04-16 18:24 | REP ---
CT GUIDED MESENTERIC LYMPH NODE BIOPSY: The procedure was performed by KIMBERLEY Marcos under the direct supervision of Dr. Albrecht. The procedure along with its risks, benefits, and complications were discussed with the patient prior to the procedure. Informed consent was obtained both verbally and written. The patient was placed in a supine position on the CT table. The mesenteric lymph node of concern was localized under CT guidance. The patient was prepped and draped in the usual sterile fashion. A procedural "time-out" was performed to ensure that the correct patient, site and procedure were being performed. Local infiltrative anesthesia was achieved using 1% Xylocaine. The guide needle was inserted under CT guidance. It was extended to the edge of the lymph node. Four core biopsy specimens were obtained. These were sent to pathology for further evaluation. The patient tolerated the procedure well. He was discharged back to his room. Reviewed by KIMBERLEY Bermeo 04/17/2017 08:17 AEdited and Signed by Andrew Albrecht MD 04/17/2017 05:03 P
[2017-04-16 20:10] VITALS: BP 123/58
[2017-04-16] MEDS: SIMVASTATIN 20 MG TAB PO SCH (20:11)
[2017-04-16] MEDS: LEVEMIR (INSULIN DETEMIR) 1 UNITS/0.01ML SC SCH (20:12)
[2017-04-17 06:00] VITALS: BP 129/66
[2017-04-17 06:23] LABS: BASO % 0.2 % (0.0-1.0); EOS % 0.4 % (0.0-3.0); LARGE UNSTAINED CELL # 0.1 K/mm3 (0.0-0.4); LARGE UNSTAINED CELL % 1.9 % (0.0-4.0); LYMPH # 0.6 K/mm3 (1.5-4.5); LYMPH % 7.9 % (24.0-44.0); MEAN CORPUSCULAR HEMOGLOBIN 30.5 pg (27.0-33.0); MEAN CORPUSCULAR HGB CONC 32.4 g/dl (32.0-36.5); MEAN CORPUSCULAR VOLUME 94.4 fl (80.0-96.0); MONO # 0.4 K/mm3 (0.0-0.8); MONO % 6.3 % (0.0-5.0); NEUTROPHILS # 5.4 K/mm3 (1.8-7.7); NEUTROPHILS % 83.3 % (36.0-66.0); PLATELET COUNT, AUTOMATED 279 k/mm3 (150-450); RED CELL DISTRIBUTION WIDTH 13.3 % (11.5-14.5); WHITE BLOOD COUNT 6.4 K/mm3 (4.0-10.0)
[2017-04-17 06:42] LABS: ALBUMIN 1.9 GM/DL (3.2-5.2); ALBUMIN/GLOBULIN RATIO 0.4 (1.00-1.93); CALCIUM LEVEL 9.1 MG/DL (8.8-10.2); CREATININE FOR GFR 1.54 MG/DL (0.70-1.30); GLOMERULAR FILTRATION RATE 46.4 (>35); POTASSIUM SERUM 4.9 MEQ/L (3.5-5.1); TOTAL PROTEIN 6.7 GM/DL (6.4-8.2)
[2017-04-17] MEDS: LEVALBUTEROL 1.25 MG/0.5 ML CONCENTRATE NEB INH SCH ×4 (08:00→19:42)
--- NOTE | 2017-04-17 08:37 | IPNPDOC ---
Subjective Date Seen The patient was seen on 04/17/17. Subjective Chief Complaint/HPI The patient is a 81-year-old male admitted with a reason for visit of Abdominal Pain, Diarrhea,Mesenteric Lymphadenopaty. Events since last encounter Tolerated bx procedure well. Pathology is pending. Family brought in shrimp yesterday and patient tolerated well. Requesting to advance diet. BM x 1 this am. Urinating multiple times, not using urinal. OOB to BR w/o difficulty. Constitutional: Denies: Chills, Fever, Night Sweats Skin: Denies: Rash, Lesions, Breakdown Pulmonary: Denies: Dyspnea, Cough Cardiovascular: Denies: Chest Pain, Palpitations, Orthopnea, Paroxysmal Noc. Dyspnea, Lt Headedness Gastrointestinal: Denies: Nausea, Vomiting, Abdominal Pain, Diarrhea, Constipation Genitourinary: Denies: Dysuria, Frequency, Incontinence, Retention Psych: Reports: Mood Normal, Denies: Depression, Memory Issues Objective Physical Examination General Exam: Positive: Alert, No Acute Distress Eye Exam: Positive: PERRLA, Conjunctiva & lids normal, EOMI, Negative: Sclera icteric ENT Exam: Positive: Atraumatic, Mucous membr. moist/pink, Pharynx Normal Neck Exam: Positive: Supple, Negative: JVD, thyromegaly Chest Exam: Positive: Clear to auscultation, Normal air movement Abdomen Exam: Positive: Normal bowel sounds, Soft, Negative: Tenderness, Hepatospenomegaly Extremity Exam: Positive: Normal pulses, Negative: Clubbing, Cyanosis, Edema Psych Exam: Positive: Mental status NL, Mood NL, Oriented x 3 Assessment /Plan Problems (1) Mesenteric lymphadenopathy Status: Acute Problem Text: 04/17/17: bx completed on 04/16/17. Pathology reveals malignant lymphoma. Re-attempt bx today. Pre-med with Lorazepam and Tylenol. plan for retroperitoneal bx with IR. Discussed with Dr. Albrecht. (2) Transaminitis Status: Acute Problem Text: 04/17/17: LFTS near normal. Ammonia level and lipase normal values. LFT improved today. re-eval lipase and ammonia level. Unable to proceed with MRCP due to claustrophobia. Will monitor LFT. consider further imaging pending bx results/LFT. (3) Abdominal pain Status: Acute Problem Specific Plan: Monitor Clinically Problem Text: 04/17/17: advance diet. tolerating full liquids. will add on ensure. (4) Diabetes mellitus Status: Chronic Problem Text: hgba1c 8.5 12/2016. RISS per protocol (5) HTN (hypertension) Status: Chronic Response to Treatment: Stable Problem Specific Plan: Monitor Clinically (6) Hyperlipidemia Status: Chronic Response to Treatment: Stable Problem Specific Plan: Monitor Clinically (7) CKD (chronic kidney disease), stage III Status: Chronic Response to Treatment: Stable Problem Specific Plan: Monitor Clinically Problem Text: 04/17/17: add on IVF x 1-2 liters today, BUN 26 Cr. 1.54. Patient admits to poo hydration over last several days. baseline Cr. 1.3-1.4 Plan/VTE VTE Prophylaxis Ordered?: Yes VS, I&O, 24H, Fishbone Vital Signs/I&O Vital Signs Date Time Temp Pulse Resp B/P (MAP) Pulse Ox O2 Delivery O2 Flow Rate FiO2 04/17/17 06:00 99.1 103 18 129/66 (87) 95 Room Air I&O- Last 24 Hours up to 6 AM 04/17/17 05:59 Intake Total 1020 ml Output Total 0 ml Balance 1020 ml Laboratory Data 24H LABS Laboratory Tests 2 04/16/17 10:06: Ammonia < 10, Lipase 189 04/16/17 13:33: Bedside Glucose (Misc Panel) 362H 04/16/17 16:44: Bedside Glucose (Misc Panel) 233H 04/16/17 19:52: Bedside Glucose (Misc Panel) 163H 04/17/17 05:35: White Blood Count 6.4, Red Blood Count 3.06L, Hemoglobin 9.4L, Hematocrit 28.9L , Mean Corpuscular Volume 94.4, Mean Corpuscular Hemoglobin 30.5, Mean Corpuscular Hemoglobin Concent 32.4, Red Cell Distribution Width 13.3, Platelet Count 279, Neutrophils (%) (Auto) 83.3H, Lymphocytes (%) (Auto) 7.9L, Monocytes (%) (Auto) 6.3H, Eosinophils (%) (Auto) 0.4, Basophils (%) (Auto) 0.2, Neutrophils # (Auto) 5.4, Lymphocytes # (Auto) 0.6L, Monocytes # (Auto) 0.4, Eosinophils # (Auto) 0.0, Basophils # (Auto) 0.0, Large Unclassified Cells % 1.9 , Large Unclassified Cells # 0.1, Anion Gap 12, Glomerular Filtration Rate 46.4 , Blood Urea Nitrogen 26H, Creatinine 1.54H, Sodium Level 136, Potassium Level 4.9, Chloride Level 99, Carbon Dioxide Level 25, Calcium Level 9.1, Aspartate Amino Transf (AST/SGOT) 50H, Alanine Aminotransferase (ALT/SGPT) 75, Alkaline Phosphatase 124H, Total Bilirubin 1.0, Total Protein 6.7, Albumin 1.9L, Albumin/ Globulin Ratio 0.40L, Lipase 168 CBC/BMP Laboratory Tests 04/17/17 05:35 Red Blood Count 3.06 L, Mean Corpuscular Volume 94.4, Mean Corpuscular Hemoglobin 30.5, Mean Corpuscular Hemoglobin Concent 32.4, Red Cell Distribution Width 13.3, Neutrophils (%) (Auto) 83.3 H, Lymphocytes (%) (Auto) 7.9 L, Monocytes (%) (Auto) 6.3 H, Eosinophils (%) (Auto) 0.4, Basophils (%) ( Auto) 0.2, Neutrophils # (Auto) 5.4, Lymphocytes # (Auto) 0.6 L, Monocytes # ( Auto) 0.4, Eosinophils # (Auto) 0.0, Basophils # (Auto) 0.0, Calcium Level 9.1, Aspartate Amino Transf (AST/SGOT) 50 H, Alanine Aminotransferase (ALT/SGPT) 75, Alkaline Phosphatase 124 H, Total Bilirubin 1.0, Total Protein 6.7, Albumin 1.9 L Aparna Luna Apr 17, 2017 08:37 Ross Woodruff MD Apr 17, 2017 15:57
[2017-04-17] MEDS: FUROSEMIDE 20 MG TAB PO SCH (08:40)
[2017-04-17] MEDS: PANTOPRAZOLE 40MG TAB (PROTONIX) PO SCH (08:40)
[2017-04-17] MEDS: METOPROLOL TART 25 MG TABLET PO SCH ×2 (08:40→20:41)
[2017-04-17] MEDS: HumaLOG INSULIN (NovoLOG) PER UNIT SC SCH ×4 (08:41→21:53)
[2017-04-17] MEDS: NS 1,000 ML IV SCH ×2 (08:45→17:48)
[2017-04-17 14:00] VITALS: BP 113/55
[2017-04-17] MEDS: HEPARIN SOD (PORCINE) 5000 UNITS/ML VIAL SQ SCH ×2 (17:01→20:40)
[2017-04-17] MEDS: SIMVASTATIN 20 MG TAB PO SCH (20:40)
[2017-04-17] MEDS: LEVEMIR (INSULIN DETEMIR) 1 UNITS/0.01ML SC SCH (20:40)
[2017-04-17 21:05] VITALS: BP 131/59
[2017-04-18] MEDS: NS 1,000 ML IV SCH (04:51)
[2017-04-18 05:11] VITALS: BP 120/54
[2017-04-18] MEDS: HEPARIN SOD (PORCINE) 5000 UNITS/ML VIAL SQ SCH (05:44)
[2017-04-18 06:44] LABS: BASO % 0.1 % (0.0-1.0); EOS % 0.6 % (0.0-3.0); LARGE UNSTAINED CELL # 0.1 K/mm3 (0.0-0.4); LARGE UNSTAINED CELL % 2.5 % (0.0-4.0); LYMPH # 0.6 K/mm3 (1.5-4.5); LYMPH % 8.1 % (24.0-44.0); MEAN CORPUSCULAR HGB CONC 31.9 g/dl (32.0-36.5); MONO # 0.5 K/mm3 (0.0-0.8); MONO % 8.7 % (0.0-5.0); NEUTROPHILS # 4.2 K/mm3 (1.8-7.7); PLATELET COUNT, AUTOMATED 275 k/mm3 (150-450); RED CELL DISTRIBUTION WIDTH 13.4 % (11.5-14.5); WHITE BLOOD COUNT 5.2 K/mm3 (4.0-10.0)
[2017-04-18 07:07] LABS: ALBUMIN 1.8 GM/DL (3.2-5.2); ALBUMIN/GLOBULIN RATIO 0.39 (1.00-1.93); BILIRUBIN,TOTAL 0.7 MG/DL (0.2-1.0); CALCIUM LEVEL 8.5 MG/DL (8.8-10.2); CREATININE FOR GFR 1.26 MG/DL (0.70-1.30); GLOMERULAR FILTRATION RATE 58.5 (>35); POTASSIUM SERUM 4.8 MEQ/L (3.5-5.1); TOTAL PROTEIN 6.4 GM/DL (6.4-8.2)
[2017-04-18] MEDS: LEVALBUTEROL 1.25 MG/0.5 ML CONCENTRATE NEB INH SCH ×3 (07:17→12:00)
[2017-04-18] MEDS: PANTOPRAZOLE 40MG TAB (PROTONIX) PO SCH (08:45)
[2017-04-18] MEDS: HumaLOG INSULIN (NovoLOG) PER UNIT SC SCH ×2 (08:45→12:24)
[2017-04-18 08:46] VITALS: BP 120/54
[2017-04-18] MEDS: FUROSEMIDE 20 MG TAB PO SCH (08:46)
[2017-04-18] MEDS: METOPROLOL TART 25 MG TABLET PO SCH (08:46)
--- NOTE | 2017-04-20 14:40 | DSES ---
DATE OF ADMISSION: 04/15/2017 DATE OF DISCHARGE: 04/18/2017 ATTENDING PHYSICIAN: Ross Woodruff MD PRIMARY CARE PROVIDER: JACKIE Hernández HISTORY OF PRESENT ILLNESS: This is an 81-year-old gentleman presented to the emergency room for acute abdominal pain with diarrhea for a 2 to 3 day history. The patient was noted to have elevated LFTs without recent alcohol use, elevated lipase. CT of the pelvis showed mesenteric and retroperitoneal lymphadenopathy measuring up to 4 cm compatible with lymphoproliferative disorder. The patient was subsequently admitted to Family Medicine Service. HOSPITAL COURSE: The patient initially went for retroperitoneal biopsy which was unsuccessful due to the patient's anxiety. With premedication, the patient was able to proceed with retroperitoneal biopsy on 04/16/2017. MRCP was ordered secondary to pancreatitis. The patient was unable to proceed secondary to significant claustrophobia and refused to proceed with the testing. The patient's activity has maintained at baseline. The patient's diet has been advanced and has tolerated regular food for the last 24 to 48 hours without diarrhea, abdominal pain or vomiting. The patient's LFTs have nearly normalized. The patient did have an elevation of his creatinine up to 1.54 felt secondary to poor by mouth intake. Did resolve with IV fluid infusion. The patient's lipase was as high as 1026, most recent 168. The patient is also noting to have a low albumin level at 1.8. The patient's biopsy did return positive for malignant lymphoma. The patient and family are aware and are considering oncology choices at this time. PHYSICAL EXAMINATION: VITAL SIGNS: Stable. He is afebrile. GENERAL: The patient is alert and oriented times three. Visiting with daughter. HEENT: Neck is supple without lymphadenopathy or jugular venous distention (JVD) . CARDIOVASCULAR: Heart rate and rhythm are regular. PULMONARY: Lungs are clear. ABDOMEN: Soft and nontender with positive bowel sounds times all four quadrants. BILATERAL LOWER EXTREMITIES: Without knee edema. NEUROLOGICAL: No resting tremors appreciated. DISCHARGE DIAGNOSES: 1. Malignant lymphoma. 2. Abdominal pain with diarrhea. 3. Elevated LFTs. 4. Elevated lipase. Questionable pancreatitis. SECONDARY DIAGNOSES: Include: 1. Diabetes. 2. Hypertension. 3. Hyperlipidemia. 4. Chronic kidney disease, stage III. PLAN: The patient will be discharged home. Activity is as tolerated. Diet is as tolerated. It was recommended that patient proceed with physical therapy in the home. [facility] referral will be initiated. He will followup with his primary care provider within the next 5 days and at that time oncology referral will be initiated. The patient had some significant questions regarding diabetes medication. The patient's renal function did remain stable and we will continue with his routine medications, however, primary care provider may want to consider adjusting metformin with repeat labs if creatinine continues to rise. DISCHARGE MEDICATIONS: Are as follows: 1. Aspirin 81 mg daily 2. Furosemide 20 mg daily 3. Glipizide 7.5 mg daily 4. Lisinopril 20 mg daily 5. Metformin 1000 mg by mouth twice a day 6. Metoprolol 25 mg by mouth twice a day 7. Glitazone 30 mg by mouth daily 8. Simvastatin 20 mg daily The patient is discharged in stable satisfactory condition with no further questions at time of discharge. All plans were discussed with patient and his daughter. TRESSA
== END 2017-04-18 13:50 | disposition home health service (06) | DRG 823 ==
LOC: M ED 19:08 → M ED INP 04-15 00:16 → M MSPAV 04-15 01:45
PROVIDERS: ADMIT General Practice; ATTEND Family Medicine
PROC: 07BB3ZX Excision of Mesenteric Lymphatic, Percutaneous Approach, Diagnostic (ICD-10-PCS; principal; 2017-04-16)
DX: C83.33 Diffuse large B-cell lymphoma, intra-abdominal lymph nodes (principal); K85.90 Acute pancreatitis without necrosis or infection, unspecified; Z68.41 Body mass index [BMI] 40.0-44.9, adult; E87.1 Hypo-osmolality and hyponatremia; E11.9 Type 2 diabetes mellitus without complications; I12.9 Hypertensive chronic kidney disease with stage 1 through stage 4 chronic kidney disease, or unspecified chronic kidney disease; E78.00 Pure hypercholesterolemia, unspecified; J44.9 Chronic obstructive pulmonary disease, unspecified; I25.10 Atherosclerotic heart disease of native coronary artery without angina pectoris; D53.9 Nutritional anemia, unspecified; E53.8 Deficiency of other specified B group vitamins; R63.4 Abnormal weight loss; E55.9 Vitamin D deficiency, unspecified; E66.9 Obesity, unspecified; E78.5 Hyperlipidemia, unspecified; I87.2 Venous insufficiency (chronic) (peripheral); N18.3 Chronic kidney disease, stage 3 (moderate); I27.2 Other secondary pulmonary hypertension; M17.11 Unilateral primary osteoarthritis, right knee; Z79.82 Long term (current) use of aspirin; Z79.84 Long term (current) use of oral hypoglycemic drugs; Z79.899 Other long term (current) drug therapy; Z87.891 Personal history of nicotine dependence; Z85.828 Personal history of other malignant neoplasm of skin

== ENCOUNTER 2017-04-22 14:36 | Inpatient (IN) | payer MEDICARE, OTHER ==
[~2017-04-22] VITALS: Ht 180.3 cm; Wt 131.5 kg
[~2017-04-22 14:36] MED LIST changes: +ASPI81TA85 PO; +METO25TA4 PO
[2017-04-22] MEDS ORDERED: NS 1,000 ML IV SCH ×2 (14:51→18:00)
[2017-04-22 15:38] LABS: BASO % 0.2 % (0.0-1.0); EOS % 0.3 % (0.0-3.0); LARGE UNSTAINED CELL # 0.2 K/mm3 (0.0-0.4); LARGE UNSTAINED CELL % 3.7 % (0.0-4.0); LYMPH # 0.3 K/mm3 (1.5-4.5); LYMPH % 5.6 % (24.0-44.0); MEAN CORPUSCULAR HEMOGLOBIN 29.9 pg (27.0-33.0); MEAN CORPUSCULAR HGB CONC 32.1 g/dl (32.0-36.5); MEAN CORPUSCULAR VOLUME 93.4 fl (80.0-96.0); MONO # 0.5 K/mm3 (0.0-0.8); NEUTROPHILS # 4.7 K/mm3 (1.8-7.7); NEUTROPHILS % 82.3 % (36.0-66.0); PLATELET COUNT, AUTOMATED 325 k/mm3 (150-450); RED CELL DISTRIBUTION WIDTH 13.2 % (11.5-14.5); WHITE BLOOD COUNT 5.8 K/mm3 (4.0-10.0)
[2017-04-22 15:44] LABS: INR 1.28
[2017-04-22 16:08] LABS: ALBUMIN 1.8 GM/DL (3.2-5.2); ALBUMIN/GLOBULIN RATIO 0.46 (1.00-1.93); ALKALINE PHOSPHATASE 199 U/L (45-117); ALT/SGPT 190 U/L (12-78); ANION GAP 14 MEQ/L (8-16); AST/SGOT 194 U/L (15-37); BILIRUBIN,DIRECT 0.9 MG/DL (0.0-0.2); BILIRUBIN,TOTAL 1.2 MG/DL (0.2-1.0); BLOOD UREA NITROGEN 29 MG/DL (7-18); CALCIUM LEVEL 7.8 MG/DL (8.8-10.2); CARBON DIOXIDE LEVEL 21 MEQ/L (21-32); CHLORIDE LEVEL 99 MEQ/L (98-107); CREATININE FOR GFR 1.27 MG/DL (0.70-1.30); GLOMERULAR FILTRATION RATE 57.9 (>35); GLUCOSE, FASTING 165 MG/DL (83-110); POTASSIUM SERUM 4.5 MEQ/L (3.5-5.1); SODIUM LEVEL 134 MEQ/L (136-145); TOTAL PROTEIN 5.7 GM/DL (6.4-8.2)
[2017-04-22] MEDS ORDERED: ACETAMINOPHEN TAB 650MG DOSE (2X325MG) PO PRN (17:45)
[2017-04-22] MEDS ORDERED: ONDANSETRON 4MG/2ML VIAL (J2405) IV PRN (17:45)
[2017-04-22] MEDS ORDERED: VITA100072 PO (18:13)
[2017-04-22 18:17] LABS: T UPTAKE 41 % (33-40); THYROXINE (T4) 9.2 UG/DL (4.5-12.0)
--- NOTE | 2017-04-22 18:27 | REP ---
RIGHT UPPER QUADRANT ULTRASOUND: Real-time sonographic evaluation of the right upper extremity was performed. The study is somewhat limited due to patient body habitus. There is mild gallbladder sludge. Gallbladder was upper limits of normal in thickness at 3-4 mm. There is no pericholecystic fluid. There is no intrahepatic or extrahepatic biliary dilatation. Common bile duct measures 5 mm in diameter. Survey images of the liver demonstrates diffuse fibrofatty infiltration without focal mass. Visualized pancreas is grossly unremarkable. Right kidney demonstrates no hydronephrosis with normal size of 9.8 cm in length. IMPRESSION: Mild gallbladder sludge. Diffuse fibrofatty infiltration of the liver. Signed by Andrew Albrecht MD 04/23/2017 04:37 P
--- NOTE | 2017-04-22 19:47 | ECGEPIP ---
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
[2017-04-22 21:31] VITALS: BP 136/63
[2017-04-22] MEDS: HEPARIN SOD (PORCINE) 5000 UNITS/ML VIAL SC SCH (21:35)
[2017-04-22] MEDS: VANCOMYCIN ORAL SOL 250MG/5ML ORAL SYRINGE PO SCH ×2 (21:35→23:33)
--- NOTE | 2017-04-22 23:20 | HPE ---
DATE OF ADMISSION: 04/22/2017 This is a patient of Chelsea Mcbride PA-C. CHIEF COMPLAINT: Unsteadiness. SUMMARY OF PRESENTATION: This is an 81-year-old who was discharged from [facility] on 04/15/2017. At that time, he was given a diagnosis of newly diagnosed lymphoma, abdominal pain and possible pancreatitis. He went home. He was doing well. He was walking without assistance and, from that point forward, he had decreasing appetite, decreasing levels of activity and increasing amounts of loose stool. He did have low grade fevers at home. Temperature on 04/19/2017 was 100.6. He has no complaints of pain, chest pain, shortness of breath. He came to the emergency room for evaluation. In the emergency department, he was noted not to have an elevated white count, no evidence of dehydration, but he does have an elevated lactic acid level and elevated liver function tests (LFTs). I was called for admission. PAST MEDICAL HISTORY: 1. Diabetes. 2. Hypertension. 3. Hypercholesterolemia. 4. Emphysema. 5. Chronic obstructive pulmonary disease (COPD). 6. History of basal cell carcinoma. 7. Osteoarthritis. 8. Coronary artery disease. 9. Hypermagnesemia. 10. Macrocytic anemia. 11. B12 deficiency. 12. Vitamin D deficiency. 13. Infrahilar nodular chest. 14. Peripheral edema. 15. Chronic kidney disease stage III. ALLERGIES: No known drug allergies. MEDICATIONS AT HOME: Reviewed with his family and include: - aspirin 81 mg daily - Lasix 20 mg daily - glipizide 7.5 mg daily - lisinopril 20 mg daily - metformin - simvastatin - pioglitazone SOCIAL HISTORY: Quit alcohol many years ago. No recent cigarette use. FAMILY HISTORY: Unremarkable. REVIEW OF SYSTEMS: Notable for no headache, no visual changes, no runny nose, no sore throat. He does have no cough, no chest pain. He does not describe palpitations. No abdominal pain. He is having loose stools. He has not noted any blood or black tarry stools. He is not describing any urinary symptoms, but he appears to be having difficulty urinating in the emergency department. Otherwise, unremarkable. PHYSICAL EXAMINATION: Temperature 99.7, pulse most recently 89, respiratory rate 18, blood pressure 99/58, 98% on room air. He was not orthostatic earlier in his stay, but he was having orthostatic symptoms. Body mass index is not recorded, but weight is 136.4 kilos. He is awake, appropriately interactive, reasonably good historian. Head is normocephalic. Pupils equally round and reactive. Anicteric. Noninjected. Nasal septum is midline. Mucous membranes tacky. Neck is supple. Breathing is symmetrical rested. Inspiratory to expiratory (I:E) ratio is 1:3. Heart is distant sounding. Radial pulses are 2+. Capillary refill is less than 2 seconds. Abdomen is distended, somewhat tympanic. Nontender to deep palpation. Active bowel sounds. I did a rectal exam. He has good rectal tone. There is scant amount of green stool in the vault, which does test heme positive. He does have a good deal of excoriation in that area. Lower extremities show evidence of excoriation. White cell count 5.8, hemoglobin 9.8, platelets of 325. BUN 29, creatinine 1.27, sodium 134, lactic acid 2.7, repeat is pending. Total bilirubin 1.2, direct bilirubin 0.9, AST 194, ALT 190, alkaline phosphatase 199, albumin 1.8. Liver ultrasound shows gallbladder sludge, diffuse fatty infiltrate of the liver. EKG shows sinus tachycardia, nonspecific ST-T wave changes, poor R-wave progression, unchanged when compared to 05/17/2015. ASSESSMENT: This is an 81-year-old who presents with orthostatic symptoms and diarrhea status post recent hospitalization. He requires a two midnight hospital stay. Further workup and treatment plan will be as follows: 1. Orthostasis. Patient has ivf which will continue. Will monitor him on telemetry. 2. Patient had heme positive stool and diarrhea. It could be an inflammatory diarrhea, possibly Clostridium (C) difficile colitis. Stool studies are ordered and I have elected to start him on oral vancomycin. 3. Patient has diabetes. Will hold his oral antihyperglycemics and switch to insulin during his stay. 4. Patient has Lasix, lisinopril, metformin, most likely related to his history of coronary artery disease. These are going to held in the current setting of relative hypotension and with symptoms of orthostasis. 5. Patient has elevated liver function tests. Statin drug will be held for his hyperlipidemia. Will repeat complete metabolic profile (CMP) in the morning. Will look to fluid hydrate. 6. Patient's history of suspicious for lymphoma. This could be an underlying cause for his transaminitis and, perhaps, even for diarrhea, which should be considered in the differential. 7. Deep venous thrombosis (DVT) prophylaxis will be mechanical. MTDD
[2017-04-22 23:59] VITALS: BP 157/64
[2017-04-23] MEDS ORDERED: GLUCOSE 4 GM CHEW TABLET PO PRN (00:30)
[2017-04-23] MEDS ORDERED: GLUCAGON FOR INJ 1 MG VIAL (J1610) SC PRN (00:30)
[2017-04-23] MEDS ORDERED: DEXTROSE 50% 50 ML SYRINGE IV PRN (00:30)
[2017-04-23 04:00] VITALS: BP 115/55
[2017-04-23] MEDS: VANCOMYCIN ORAL SOL 250MG/5ML ORAL SYRINGE PO SCH ×2 (05:00→12:12)
[2017-04-23 06:38] LABS: MEAN CORPUSCULAR HEMOGLOBIN 30.2 pg (27.0-33.0); MEAN CORPUSCULAR HGB CONC 32.4 g/dl (32.0-36.5); RED CELL DISTRIBUTION WIDTH 13.4 % (11.5-14.5); WHITE BLOOD COUNT 5.3 K/mm3 (4.0-10.0)
[2017-04-23 06:57] LABS: ALBUMIN 1.9 GM/DL (3.2-5.2); ALKALINE PHOSPHATASE 193 U/L (45-117); ALT/SGPT 171 U/L (12-78); ANION GAP 8 MEQ/L (8-16); AST/SGOT 157 U/L (15-37); BILIRUBIN,TOTAL 1.1 MG/DL (0.2-1.0); BLOOD UREA NITROGEN 25 MG/DL (7-18); CARBON DIOXIDE LEVEL 29 MEQ/L (21-32); CHLORIDE LEVEL 98 MEQ/L (98-107); CREATININE FOR GFR 1.12 MG/DL (0.70-1.30); GLOMERULAR FILTRATION RATE > 60.0 (>35); GLUCOSE, FASTING 91 MG/DL (83-110); MAGNESIUM LEVEL 1.4 MG/DL (1.8-2.4); POTASSIUM SERUM 4.5 MEQ/L (3.5-5.1); SODIUM LEVEL 135 MEQ/L (136-145)
[2017-04-23 07:11] LABS: ALBUMIN/GLOBULIN RATIO 0.36 (1.00-1.93)
[2017-04-23 07:18] LABS: CALCIUM LEVEL 9.6 MG/DL (8.8-10.2); TOTAL PROTEIN 7.2 GM/DL (6.4-8.2)
[2017-04-23] MEDS ORDERED: HumaLOG INSULIN (NovoLOG) PER UNIT SC SCH ×2 (07:30→21:00)
[2017-04-23 08:00] VITALS: BP 130/73
[2017-04-23] MEDS: HEPARIN SOD (PORCINE) 5000 UNITS/ML VIAL SC SCH ×2 (09:52→21:29)
--- NOTE | 2017-04-23 09:52 | IPNPDOC ---
Subjective Date Seen The patient was seen on 04/23/17. Subjective Chief Complaint/HPI The patient is a 81-year-old male admitted with a reason for visit of Orthostasis. Events since last encounter Food does not taste good to him. He feels like if he eats much he will become nauseated. Feels shaky with ambulation Constitutional: Denies: Chills, Fever Pulmonary: Denies: Dyspnea, Cough Cardiovascular: Denies: Chest Pain, Palpitations Gastrointestinal: Reports: Nausea, Diarrhea (No BM since admission), Denies: Vomiting, Abdominal Pain, Constipation Objective Physical Examination General Exam: Positive: Alert, No Acute Distress, Other (Arms are shaky) Chest Exam: Positive: Clear to auscultation, Normal air movement Heart Exam: Positive: Rate Normal, Negative: Murmurs Abdomen Exam: Positive: Normal bowel sounds, Soft, Negative: Tenderness Extremity Exam: Positive: Edema (trace) Assessment /Plan Problems (1) Transaminasemia Problem Text: 2 biliary dysfunction vs lymphoma 04/23 check HIDA, if normal UGI SBFT, if no obvious cause anorexia, t/c PEG prior to improve functional status prior to possible chemorx 04/23 171 04/15 ALT 124 04/22 218 04/15 lipase to 1026 04/22 liver US: IMPRESSION: Mild gallbladder sludge. Diffuse fiber fatty infiltration of the liver. (2) Anorexia Status: Acute Problem Text: w/u as per increased LFTs progressively down 26 pounds since 01/2017 (321 to 295) (3) Severe protein-calorie malnutrition Status: Chronic Response to Treatment: Worse Problem Text: Get nutrition eval. consider TPN - D/W attending (4) Malignant lymphoma Problem Text: Newly Diagnosed - per 04/16/17 CT guided biopsy - final report still pending from [facility] He has decided to seek Oncology evaluation in [place] - We may need to consult Oncology while patient is inpatient depending on his course once final pathology returns 04/14 CT AP: Extensive mesenteric and retroperitoneal lymphadenopathy most compatible with lymphoproliferative disorder. Further evaluation with PET/CT was previously recommended. 3. Sequelae of prior granulomatous disease. 4. Emphysema. 5. Additional findings as above. Thank you for your kind referral of this patient. We appreciate the opportunity to participate in this patient's care. (5) Hypomagnesemia Status: Acute Problem Text: Give IV mag runs (6) Weakness Status: Acute Response to Treatment: Worse Problem Text: Multifactorial: Likely related to poor po intake. Lactic Acid Level high on admission suggesting infection. B/C and U/c pending GI panel ordered for ? C. Diff in patient with h/o diarrhea, but no BM since admission - on oral Vanco emperically BP meds and Diuretics held for orthostasis Encourage PO intake Replace mag H/O B12 def in past - check level and replace accordingly Get PT/OT (7) CKD (chronic kidney disease), stage III Status: Chronic Response to Treatment: Stable (8) HTN (hypertension) Status: Chronic Problem Text: Bp meds on hold (9) Diabetes mellitus Status: Chronic Response to Treatment: Stable Problem Text: meds on hold (10) Diarrhea in adult patient Status: Acute Plan/VTE VTE Prophylaxis Ordered?: Yes Disposition Get PT/OT VS, I&O, 24H, Fishbone Vital Signs/I&O Vital Signs Date Time Temp Pulse Resp B/P (MAP) Pulse Ox O2 Delivery O2 Flow Rate FiO2 04/23/17 08:40 Room Air 04/23/17 08:00 98.8 106 19 130/73 (92) 95 I&O- Last 24 Hours up to 6 AM 04/23/17 06:00 Intake Total 2350 ml Output Total 1200 ml Balance 1150 ml Laboratory Data 24H LABS Laboratory Tests 2 04/22/17 15:22: Lactic Acid Level 3.7*H 04/22/17 15:23: White Blood Count 5.8, Red Blood Count 3.28L, Hemoglobin 9.8L, Hematocrit 30.7L , Mean Corpuscular Volume 93.4, Mean Corpuscular Hemoglobin 29.9, Mean Corpuscular Hemoglobin Concent 32.1, Red Cell Distribution Width 13.2, Platelet Count 325, Neutrophils (%) (Auto) 82.3H, Lymphocytes (%) (Auto) 5.6L, Monocytes (%) (Auto) 8.0H, Eosinophils (%) (Auto) 0.3, Basophils (%) (Auto) 0.2, Neutrophils # (Auto) 4.7, Lymphocytes # (Auto) 0.3L, Monocytes # (Auto) 0.5, Eosinophils # (Auto) 0.0, Basophils # (Auto) 0.0, Large Unclassified Cells % 3.7 , Large Unclassified Cells # 0.2, Prothrombin Time 16.3H, Prothromb Time International Ratio 1.28, Anion Gap 14, Glomerular Filtration Rate 57.9, Calcium Level 7.8L, Aspartate Amino Transf (AST/SGOT) 194H, Alanine Aminotransferase (ALT/SGPT) 190H, Alkaline Phosphatase 199H, Total Bilirubin 1.2H, Direct Bilirubin 0.9H, Total Creatine Kinase 41, Creatine Kinase MB 1.0, Creatine Kinase MB Relative Index 2.43, Troponin I < 0.02, Total Protein 5.7L, Albumin 1.8L, Albumin/Globulin Ratio 0.46L, Lipase 218, Thyroid Stimulating Hormone (TSH) 1.330, Free Thyroxine Index 3.8, Thyroxine (T4) 9.2, Triiodothyronine (T3) Uptake 41H 04/22/17 18:02: Urine Appearance HAZY, Urine Color YELLOW, Urine pH 5.0, Urine Specific [place] 1.013, Urine Protein NEGATIVE, Urine Glucose (UA) NEGATIVE, Urine Ketones NEGATIVE, Urine Urobilinogen 2.0H, Urine Bilirubin NEGATIVE, Urine Leukocyte Esterase NEGATIVE, Urine Blood NEGATIVE, Urine Nitrite NEGATIVE, Urine WBC (Auto ) 1, Urine RBC (Auto) 3, Urine Hyaline Casts (Auto) 0, Urine Bacteria (Auto) 1+H , Urine Squamous Epithelial Cells 0, Urine Amorphous Sediment SMALLH, Urine Mucus (Auto) SMALL, Urine Sperm (Auto) 04/22/17 19:46: Lactic Acid Followup at 4 Hours 2.5*H 04/22/17 22:34: Bedside Glucose (Misc Panel) 82L 04/23/17 05:31: Anion Gap 8, Glomerular Filtration Rate > 60.0, Blood Urea Nitrogen 25H, Creatinine 1.12, Sodium Level 135L, Potassium Level 4.5, Chloride Level 98, Carbon Dioxide Level 29, Calcium Level 9.6#, Aspartate Amino Transf (AST/SGOT) 157H, Alanine Aminotransferase (ALT/SGPT) 171H, Alkaline Phosphatase 193H, Total Bilirubin 1.1H, Total Protein 7.2#, Albumin 1.9L, Magnesium Level 1.4L, Albumin/Globulin Ratio 0.36L CBC/BMP Laboratory Tests 04/22/17 15:23 Red Blood Count 3.28 L, Mean Corpuscular Volume 93.4, Mean Corpuscular Hemoglobin 29.9, Mean Corpuscular Hemoglobin Concent 32.1, Red Cell Distribution Width 13.2, Neutrophils (%) (Auto) 82.3 H, Lymphocytes (%) (Auto) 5.6 L, Monocytes (%) (Auto) 8.0 H, Eosinophils (%) (Auto) 0.3, Basophils (%) ( Auto) 0.2, Neutrophils # (Auto) 4.7, Lymphocytes # (Auto) 0.3 L, Monocytes # ( Auto) 0.5, Eosinophils # (Auto) 0.0, Basophils # (Auto) 0.0 04/23/17 05:31 Red Blood Count 3.24 L, Mean Corpuscular Volume 93.0, Mean Corpuscular Hemoglobin 30.2, Mean Corpuscular Hemoglobin Concent 32.4, Red Cell Distribution Width 13.4, Calcium Level 9.6 #, Aspartate Amino Transf (AST/SGOT) 157 H, Alanine Aminotransferase (ALT/SGPT) 171 H, Alkaline Phosphatase 193 H, Total Bilirubin 1.1 H, Total Protein 7.2 #, Albumin 1.9 L Microbiology Microbiology 04/22/17 Blood Culture, Received Pending 04/22/17 Blood Culture, Received Pending 04/22/17 Urine Culture, Received Pending MAURO HERNANDEZ PA-C Apr 23, 2017 09:52 Julio Davis M.D. Apr 23, 2017 15:20
[2017-04-23] MEDS ORDERED: MAG SULF 1GM/100ML (MAG RUN) 1 GM in APPROPRIATE DILUENT 1 EA IV ONE (10:00)
[2017-04-23 11:11] LABS: FOLATE 15.4 NG/ML (>5.4)
[2017-04-23 13:55] VITALS: BP 133/65
[2017-04-23 22:00] VITALS: BP 162/74
[2017-04-24 06:00] VITALS: BP 137/62
[2017-04-24 06:17] LABS: MEAN CORPUSCULAR HEMOGLOBIN 29.9 pg (27.0-33.0); MEAN CORPUSCULAR HGB CONC 31.2 g/dl (32.0-36.5); MEAN CORPUSCULAR VOLUME 95.8 fl (80.0-96.0); RED CELL DISTRIBUTION WIDTH 13.7 % (11.5-14.5); WHITE BLOOD COUNT 5.4 K/mm3 (4.0-10.0)
[2017-04-24 06:40] LABS: ALBUMIN 1.7 GM/DL (3.2-5.2); ALBUMIN/GLOBULIN RATIO 0.34 (1.00-1.93); ALKALINE PHOSPHATASE 171 U/L (45-117); ALT/SGPT 127 U/L (12-78); ANION GAP 9 MEQ/L (8-16); AST/SGOT 93 U/L (15-37); BILIRUBIN,DIRECT 0.6 MG/DL (0.0-0.2); BLOOD UREA NITROGEN 18 MG/DL (7-18); CALCIUM LEVEL 9.1 MG/DL (8.8-10.2); CARBON DIOXIDE LEVEL 27 MEQ/L (21-32); CHLORIDE LEVEL 99 MEQ/L (98-107); GLOMERULAR FILTRATION RATE > 60.0 (>35); GLUCOSE, FASTING 168 MG/DL (83-110); MAGNESIUM LEVEL 1.6 MG/DL (1.8-2.4); POTASSIUM SERUM 4.4 MEQ/L (3.5-5.1); SODIUM LEVEL 135 MEQ/L (136-145); TOTAL PROTEIN 6.7 GM/DL (6.4-8.2)
[2017-04-24] MEDS: HEPARIN SOD (PORCINE) 5000 UNITS/ML VIAL SC SCH ×2 (07:54→21:26)
[2017-04-24] MEDS ORDERED: MAG SULF 1GM/100ML (MAG RUN) 1 GM in APPROPRIATE DILUENT 1 EA IV ONE (11:00)
--- NOTE | 2017-04-24 11:03 | IPNPDOC ---
Subjective Date Seen The patient was seen on 04/24/17. Subjective Chief Complaint/HPI The patient is a 81-year-old male admitted with a reason for visit of Orthostasis. Events since last encounter NPO for HIDA scan this morning, but he actually feels hungry for the first time in a while. No abd pain. He particiapted with PT today and did ok but is still very weak Constitutional: Denies: Chills, Fever Pulmonary: Denies: Dyspnea, Cough Cardiovascular: Denies: Chest Pain, Palpitations, Orthopnea Gastrointestinal: Denies: Nausea, Vomiting, Abdominal Pain, Diarrhea, Constipation Objective Physical Examination General Exam: Positive: Alert, No Acute Distress, Other (Arms are shaky) Chest Exam: Positive: Clear to auscultation, Normal air movement Heart Exam: Positive: Rate Normal, Negative: Murmurs Abdomen Exam: Positive: Normal bowel sounds, Soft, Negative: Tenderness Extremity Exam: Negative: Edema Assessment /Plan Problems (1) Transaminasemia Problem Text: 04/24 - 2 biliary dysfunction vs lymphoma Liver Us showed sludge and fatty liver infiltration HIDA scan ordered for today 04/24 - result pending; if normal, order UGI SBFT Liver enzymes up but no n/v or abd pain 04/23 check HIDA, if normal UGI SBFT, if no obvious cause anorexia, t/c PEG prior to improve functional status prior to possible chemorx 04/23 171 04/15 ALT 124 04/22 218 04/15 lipase to 1026 04/22 liver US: IMPRESSION: Mild gallbladder sludge. Diffuse fiber fatty infiltration of the liver. (2) Anorexia Status: Acute Problem Text: w/u as per increased LFTs progressively down 26 pounds since 01/2017 (321 to 295) (3) Severe protein-calorie malnutrition Status: Chronic Response to Treatment: Worse Problem Text: Consider PEG placement as above. (4) Malignant lymphoma Problem Text: Newly Diagnosed - per 04/16/17 CT guided biopsy - final report still pending from [facility] He has decided to seek Oncology evaluation in [place] - We may need to consult Oncology while patient is inpatient depending on his course once final pathology returns 04/14 CT AP: Extensive mesenteric and retroperitoneal lymphadenopathy most compatible with lymphoproliferative disorder. Further evaluation with PET/CT was previously recommended. 3. Sequelae of prior granulomatous disease. 4. Emphysema. 5. Additional findings as above. Thank you for your kind referral of this patient. We appreciate the opportunity to participate in this patient's care. (5) Hypomagnesemia Status: Acute Problem Text: Give IV mag runs (6) Weakness Status: Acute Response to Treatment: Worse Problem Text: Multifactorial: Likely related to poor po intake. Lactic Acid Level 3.7 upon admission, and decreased to 2.5 with IVF; but Blood cultures and urine cultures negative so far; no obvious source of infection. BP meds and Diuretics held for orthostasis Replace mag H/O B12 def in past - B12 elevated this admission Continue PT/OT (7) CKD (chronic kidney disease), stage III Status: Chronic Response to Treatment: Stable (8) HTN (hypertension) Status: Chronic Problem Text: Bp meds on hold (9) Diabetes mellitus Status: Chronic Response to Treatment: Stable Problem Text: meds on hold Plan/VTE VTE Prophylaxis Ordered?: Yes Plan Therapy: PT, OT Family Medicine Attending Note: I saw and examined Mr. Saab this afternoon; I discussed his case with YVETTE Hernández and I agree with her note above. Patient had no complaints today other than his generalized weakness causing difficulty walking. Hida scan was done with result still pending. (KES ) VS, I&O, 24H, Fishbone Vital Signs/I&O Vital Signs Date Time Temp Pulse Resp B/P (MAP) Pulse Ox O2 Delivery O2 Flow Rate FiO2 04/24/17 08:00 Room Air 04/24/17 06:00 98.4 100 20 137/62 (87) 91 I&O- Last 24 Hours up to 6 AM 04/24/17 06:00 Intake Total 700 ml Output Total 1100 ml Balance -400 ml Laboratory Data 24H LABS Laboratory Tests 2 04/23/17 11:36: Bedside Glucose (Misc Panel) 171H 04/23/17 16:40: Bedside Glucose (Misc Panel) 174H 04/23/17 20:38: Bedside Glucose (Misc Panel) 218H 04/24/17 05:39: Anion Gap 9, Glomerular Filtration Rate > 60.0, Blood Urea Nitrogen 18, Creatinine 1.00, Sodium Level 135L, Potassium Level 4.4, Chloride Level 99, Carbon Dioxide Level 27, Calcium Level 9.1, Aspartate Amino Transf (AST/SGOT) 93H, Alanine Aminotransferase (ALT/SGPT) 127H, Alkaline Phosphatase 171H, Total Bilirubin 1.0, Direct Bilirubin 0.6H, Total Protein 6.7, Albumin 1.7L, Magnesium Level 1.6L, Albumin/Globulin Ratio 0.34L, Lipase 172 CBC/BMP Laboratory Tests 04/24/17 05:39 Red Blood Count 3.08 L, Mean Corpuscular Volume 95.8, Mean Corpuscular Hemoglobin 29.9, Mean Corpuscular Hemoglobin Concent 31.2 L, Red Cell Distribution Width 13.7, Calcium Level 9.1, Aspartate Amino Transf (AST/SGOT) 93 H, Alanine Aminotransferase (ALT/SGPT) 127 H, Alkaline Phosphatase 171 H, Total Bilirubin 1.0, Direct Bilirubin 0.6 H, Total Protein 6.7, Albumin 1.7 L Microbiology Microbiology 04/22/17 Blood Culture - Preliminary, Resulted No growth after 24 hours . All specim... 04/22/17 Blood Culture - Preliminary, Resulted No growth after 24 hours . All specim... 04/22/17 Urine Culture - Final, Complete MAURO HERNANDEZ PA-C Apr 24, 2017 11:03 BROOKE HAILE MD Apr 24, 2017 14:20
--- NOTE | 2017-04-24 13:34 | REP ---
HIDA SCAN: Following the intravenous administration of 6.6 mCi of technetium 99m mebrofenin, multiple images of the right upper quadrant are performed every 5 minutes for a period of 1 hour. There is biliary to bowel transit at 25 minutes post injection. The gallbladder is visualized at 35 minutes post injection with no scintigraphic evidence of cholecystitis. IMPRESSION: No scintigraphic evidence of cholecystitis. Signed by Andrew Albrecht MD 04/24/2017 04:44 P
[2017-04-24 14:00] VITALS: BP 134/93
[2017-04-24 22:00] VITALS: BP 149/84
[2017-04-25 06:00] VITALS: BP 112/56
[2017-04-25 06:58] LABS: MEAN CORPUSCULAR HEMOGLOBIN 29.9 pg (27.0-33.0); MEAN CORPUSCULAR HGB CONC 32.2 g/dl (32.0-36.5); RED CELL DISTRIBUTION WIDTH 13.6 % (11.5-14.5); WHITE BLOOD COUNT 5.5 K/mm3 (4.0-10.0)
[2017-04-25 07:22] LABS: ALBUMIN 1.9 GM/DL (3.2-5.2); ALBUMIN/GLOBULIN RATIO 0.46 (1.00-1.93); ALKALINE PHOSPHATASE 180 U/L (45-117); ALT/SGPT 125 U/L (12-78); ANION GAP 11 MEQ/L (8-16); AST/SGOT 96 U/L (15-37); BLOOD UREA NITROGEN 18 MG/DL (7-18); CALCIUM LEVEL 8.6 MG/DL (8.8-10.2); CARBON DIOXIDE LEVEL 25 MEQ/L (21-32); CHLORIDE LEVEL 102 MEQ/L (98-107); CREATININE FOR GFR 0.97 MG/DL (0.70-1.30); GLOMERULAR FILTRATION RATE > 60.0 (>35); GLUCOSE, FASTING 217 MG/DL (83-110); MAGNESIUM LEVEL 1.8 MG/DL (1.8-2.4); POTASSIUM SERUM 4.6 MEQ/L (3.5-5.1); SODIUM LEVEL 138 MEQ/L (136-145)
[2017-04-25] MEDS: HEPARIN SOD (PORCINE) 5000 UNITS/ML VIAL SC SCH ×2 (09:11→21:00)
--- NOTE | 2017-04-25 10:49 | IPNPDOC ---
Subjective Date Seen The patient was seen on 04/25/17. Subjective Chief Complaint/HPI The patient is a 81-year-old male admitted with a reason for visit of Orthostasis. Events since last encounter No n/v or abd pain - feels hungry He feels stronger and was able to ambulate to BR today Constitutional: Denies: Chills, Fever Pulmonary: Denies: Dyspnea, Cough Cardiovascular: Denies: Chest Pain, Palpitations Gastrointestinal: Denies: Nausea, Vomiting, Abdominal Pain, Diarrhea, Constipation Objective Physical Examination General Exam: Positive: Alert, No Acute Distress Chest Exam: Positive: Clear to auscultation, Normal air movement Heart Exam: Positive: Rate Normal, Negative: Murmurs Abdomen Exam: Positive: Normal bowel sounds, Soft, Negative: Tenderness Extremity Exam: Negative: Edema Assessment /Plan Problems (1) Transaminasemia Problem Text: 04/25 - Liver enzymes remain elevated but stable No n/v or abd pain currently, but has been NPO for testing elevatins likely related to Lymphoma Liver US showed sludge and fatty liver infiltration HIDA scan normal Liver enzymes up but no n/v or abd pain 04/23 check HIDA, if normal UGI SBFT, if no obvious cause anorexia, t/c PEG prior to improve functional status prior to possible chemorx IMPRESSION: Mild gallbladder sludge. Diffuse fiber fatty infiltration of the liver. (2) Anorexia Status: Acute Problem Text: w/u as per increased LFTs progressively down 26 pounds since 01/2017 (321 to 295) (3) Severe protein-calorie malnutrition Status: Chronic Response to Treatment: Worse Problem Text: Consider PEG placement as above. (4) Malignant lymphoma Problem Text: Newly Diagnosed - per 04/16/17 CT guided biopsy - final report still pending from [facility] He has decided to seek Oncology evaluation in [place] - We may need to consult Oncology while patient is inpatient depending on his course once final pathology returns 04/14 CT AP: Extensive mesenteric and retroperitoneal lymphadenopathy most compatible with lymphoproliferative disorder. Further evaluation with PET/CT was previously recommended. 3. Sequelae of prior granulomatous disease. 4. Emphysema. 5. Additional findings as above. Thank you for your kind referral of this patient. We appreciate the opportunity to participate in this patient's care. (5) Hypomagnesemia Status: Resolved Problem Text: Resolved s/p IV mag runs x 2 (6) Weakness Status: Acute Response to Treatment: Worse Problem Text: Multifactorial: Likely related to poor po intake. Lactic Acid Level 3.7 upon admission, and decreased to 2.5 with IVF; but Blood cultures and urine cultures negative. no obvious source of infection. BP meds and Diuretics held for orthostasis Mag replaced Strength improved with above treatment Continue PT/OT (7) CKD (chronic kidney disease), stage III Status: Chronic Response to Treatment: Stable (8) HTN (hypertension) Status: Chronic Response to Treatment: Stable Problem Text: Bp meds on hold 04/25 - BP stable but now a little tachycardic - restart low dose Metoprolol with hold parameters (9) Diabetes mellitus Status: Chronic Response to Treatment: Stable Problem Text: meds on hold Plan/VTE VTE Prophylaxis Ordered?: Yes Plan Therapy: PT, OT VS, I&O, 24H, Fishbone Vital Signs/I&O Vital Signs Date Time Temp Pulse Resp B/P (MAP) Pulse Ox O2 Delivery O2 Flow Rate FiO2 04/25/17 10:42 Room Air 04/25/17 06:00 98.2 110 20 112/56 (74) 92 I&O- Last 24 Hours up to 6 AM 04/25/17 06:00 Intake Total 840 ml Output Total 675 ml Balance 165 ml Laboratory Data 24H LABS Laboratory Tests 2 04/24/17 12:41: Bedside Glucose (Misc Panel) 195H 04/24/17 16:32: Bedside Glucose (Misc Panel) 199H 04/24/17 21:02: Bedside Glucose (Misc Panel) 246H 04/25/17 06:25: Anion Gap 11, Glomerular Filtration Rate > 60.0, Blood Urea Nitrogen 18, Creatinine 0.97, Sodium Level 138, Potassium Level 4.6, Chloride Level 102, Carbon Dioxide Level 25, Calcium Level 8.6L, Aspartate Amino Transf (AST/SGOT) 96H, Alanine Aminotransferase (ALT/SGPT) 125H, Alkaline Phosphatase 180H, Total Bilirubin 1.0, Total Protein 6.0L, Albumin 1.9L, Magnesium Level 1.8, Albumin/ Globulin Ratio 0.46L CBC/BMP Laboratory Tests 04/25/17 06:25 Red Blood Count 3.31 L, Mean Corpuscular Volume 93.0, Mean Corpuscular Hemoglobin 29.9, Mean Corpuscular Hemoglobin Concent 32.2, Red Cell Distribution Width 13.6, Calcium Level 8.6 L, Aspartate Amino Transf (AST/SGOT) 96 H, Alanine Aminotransferase (ALT/SGPT) 125 H, Alkaline Phosphatase 180 H, Total Bilirubin 1.0, Total Protein 6.0 L, Albumin 1.9 L Microbiology Microbiology 04/22/17 Blood Culture - Preliminary, Resulted No Growth after 48 hours. All Specime... 04/22/17 Blood Culture - Preliminary, Resulted No Growth after 48 hours. All Specime... 04/22/17 Urine Culture - Final, Complete MAURO HERNANDEZ PA-C Apr 25, 2017 10:49
[2017-04-25] MEDS: METOPROLOL TART 12.5 MG PER 1/2 TAB PO SCH ×2 (11:42→21:00)
[2017-04-25] MEDS ORDERED: E-Z-GAS II EFFERVESCENT PACKET (SODIUM BICARB./CITRIC ACID/SIMETHICONE) As Ordered ONE (11:48)
[2017-04-25] MEDS ORDERED: E-Z-HD 98% w/w 340GM SUSP BTL As Ordered ONE (11:48)
[2017-04-25] MEDS ORDERED: E-Z-PAQUE 96% w/w SUSP 176GM BTL As Ordered ONE ×2 (11:48→12:32)
[2017-04-25 14:00] VITALS: BP 128/68
--- NOTE | 2017-04-25 17:27 | REP ---
Upper GI, small bowel follow-through study: History: Anorexia. Retroperitoneal and mesenteric lymphadenopathy. Fluoroscopy time is 1 minute 27 seconds. Findings: Preliminary quality control coordinator view of the abdomen is noncontributory. The esophagus is normal in course. Poor esophageal emptying is seen with increased lower esophageal sphincter tone, question mild achalasia. No hiatal hernia is seen. Reflux was not witnessed. The stomach displays normal rugal folds and a normal mucosal pattern. No mass or ulcer is seen. Duodenal bulb was fully distensible. 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 The small bowel follow-through study shows no abnormality. Impression: Poor clearance of barium from a mildly prominent thoracic esophagus with increased lower esophageal sphincter tone, question mild achalasia. Descending duodenal diverticulum. Otherwise negative upper GI small bowel follow-through study. Signed by Nas Duke MD 04/26/2017 08:30 A
[2017-04-25 22:00] VITALS: BP 112/52
[2017-04-26 06:00] VITALS: BP 126/62
[2017-04-26 06:20] LABS: MEAN CORPUSCULAR HEMOGLOBIN 29.5 pg (27.0-33.0); MEAN CORPUSCULAR HGB CONC 31.6 g/dl (32.0-36.5); MEAN CORPUSCULAR VOLUME 93.4 fl (80.0-96.0); RED CELL DISTRIBUTION WIDTH 13.5 % (11.5-14.5); WHITE BLOOD COUNT 6.3 K/mm3 (4.0-10.0)
[2017-04-26 06:58] LABS: ALBUMIN 1.8 GM/DL (3.2-5.2); ALBUMIN/GLOBULIN RATIO 0.36 (1.00-1.93); ALKALINE PHOSPHATASE 152 U/L (45-117); ALT/SGPT 113 U/L (12-78); ANION GAP 11 MEQ/L (8-16); AST/SGOT 77 U/L (15-37); BILIRUBIN,TOTAL 0.9 MG/DL (0.2-1.0); BLOOD UREA NITROGEN 23 MG/DL (7-18); CALCIUM LEVEL 9.3 MG/DL (8.8-10.2); CARBON DIOXIDE LEVEL 26 MEQ/L (21-32); CHLORIDE LEVEL 98 MEQ/L (98-107); CREATININE FOR GFR 1.14 MG/DL (0.70-1.30); GLOMERULAR FILTRATION RATE > 60.0 (>35); GLUCOSE, FASTING 246 MG/DL (83-110); MAGNESIUM LEVEL 1.7 MG/DL (1.8-2.4); POTASSIUM SERUM 4.6 MEQ/L (3.5-5.1); SODIUM LEVEL 135 MEQ/L (136-145); TOTAL PROTEIN 6.8 GM/DL (6.4-8.2)
[2017-04-26] MEDS: HEPARIN SOD (PORCINE) 5000 UNITS/ML VIAL SC SCH ×2 (08:43→21:28)
[2017-04-26] MEDS: METOPROLOL TART 12.5 MG PER 1/2 TAB PO SCH ×2 (08:44→21:26)
--- NOTE | 2017-04-26 11:13 | IPNPDOC ---
Subjective Date Seen The patient was seen on 04/26/17. Subjective Chief Complaint/HPI The patient is a 81-year-old male admitted with a reason for visit of Orthostasis. Events since last encounter Tolerating spaghetti dinner last pm and breakfast this am without n/v, abd pain Constitutional: Denies: Chills, Fever Pulmonary: Denies: Dyspnea, Cough Cardiovascular: Denies: Chest Pain, Palpitations, Orthopnea Gastrointestinal: Denies: Nausea, Vomiting, Abdominal Pain, Diarrhea, Constipation Objective Physical Examination General Exam: Positive: Alert, No Acute Distress Chest Exam: Positive: Clear to auscultation, Normal air movement Heart Exam: Positive: Rate Normal, Negative: Murmurs Abdomen Exam: Positive: Normal bowel sounds, Soft, Negative: Tenderness Extremity Exam: Positive: Edema (trace edema BL) Assessment /Plan Problems (1) Malignant lymphoma Problem Text: Newly Diagnosed - per 04/16/17 CT guided biopsy -diffuse large B- cell, double-over expressor (bcl-2/c-myc) (poor prognosis) 04/26 case d/w Dr. Alvarado-plan repeat CT AP next week and check UA/LDH to help determine how aggressive lymphoma is (if elevated UA-start allo to prevent TLS and start PPI px). Favoring starting Rituxan/prednisone as first cycle OUTPATIENT, then mini-CHOP 04/14 CT AP: Extensive mesenteric and retroperitoneal lymphadenopathy most compatible with lymphoproliferative disorder. Further evaluation with PET/CT was previously recommended. 3. Sequelae of prior granulomatous disease. 4. Emphysema. 5. Additional findings as above. Thank you for your kind referral of this patient. We appreciate the opportunity to participate in this patient's care. (2) Transaminasemia Problem Text: concerning for recurrent biliary dysfunction 04/26 Boogie felt non-surgical, plan check HIDA c CCK/EF 04/28 given concern for recurrent abdominal pain/anorexia/increased AST/ALT/lipase now x 2 (as LFTs improved so did sx)-obviously would not want to start R-CHOP with recurrent biliary colic/acute cholecystitis risk 04/23 Liver US showed sludge and fatty liver infiltration 04/24 HIDA scan normal, but no EF performed 04/25 UGI with SBFT performed - no stricture or obstruction (3) Anorexia Status: Acute Problem Text: w/u as per increased LFTs progressively down 26 pounds since 01/2017 (321 to 295) (4) Severe protein-calorie malnutrition Status: Chronic Response to Treatment: Worse Problem Text: Consider PEG placement as above. (5) Hypomagnesemia Status: Acute Problem Text: 04/26 - mag low again. start po magnesium s/p IV mag runs x 2 (6) Weakness Status: Acute Response to Treatment: Worse Problem Text: 04/25/17 last PT evaluation-not safe (7) CKD (chronic kidney disease), stage III Status: Chronic Response to Treatment: Stable (8) HTN (hypertension) Status: Chronic Response to Treatment: Stable Problem Text: 04.26 - BP better with restart of Metoprolol Has slight le edema developing Normally on diuretic - may need to restart eventually, but BP remains on low normal side. I believe his weakness on admission was partly related to diuretic and BP meds causing orthostasis in patient with poor oral intake and significant weight loss recently (9) Diabetes mellitus Status: Chronic Response to Treatment: Stable Problem Text: meds on hold Plan/VTE VTE Prophylaxis Ordered?: Yes Plan Therapy: PT, OT VS, I&O, 24H, Fishbone Vital Signs/I&O Vital Signs Date Time Temp Pulse Resp B/P (MAP) Pulse Ox O2 Delivery O2 Flow Rate FiO2 04/26/17 08:44 109 126/62 04/26/17 06:00 97.4 20 95 Room Air I&O- Last 24 Hours up to 6 AM 04/26/17 06:00 Intake Total 1800 ml Output Total 1 ml Balance 1799 ml Laboratory Data 24H LABS Laboratory Tests 2 04/25/17 11:32: Bedside Glucose (Misc Panel) 223H 04/25/17 14:59: Bedside Glucose (Misc Panel) 257H 04/25/17 17:06: Bedside Glucose (Misc Panel) 233H 04/25/17 20:06: Bedside Glucose (Misc Panel) 295H 04/26/17 06:15: Anion Gap 11, Glomerular Filtration Rate > 60.0, Blood Urea Nitrogen 23H, Creatinine 1.14, Sodium Level 135L, Potassium Level 4.6, Chloride Level 98, Carbon Dioxide Level 26, Calcium Level 9.3, Aspartate Amino Transf (AST/SGOT) 77H, Alanine Aminotransferase (ALT/SGPT) 113H, Alkaline Phosphatase 152H, Total Bilirubin 0.9, Total Protein 6.8, Albumin 1.8L, Magnesium Level 1.7L, Albumin/ Globulin Ratio 0.36L, Lipase 208 CBC/BMP Laboratory Tests 04/26/17 06:15 Red Blood Count 3.29 L, Mean Corpuscular Volume 93.4, Mean Corpuscular Hemoglobin 29.5, Mean Corpuscular Hemoglobin Concent 31.6 L, Red Cell Distribution Width 13.5, Calcium Level 9.3, Aspartate Amino Transf (AST/SGOT) 77 H, Alanine Aminotransferase (ALT/SGPT) 113 H, Alkaline Phosphatase 152 H, Total Bilirubin 0.9, Total Protein 6.8, Albumin 1.8 L Microbiology Microbiology 04/22/17 Blood Culture - Preliminary, Resulted No Growth after 72 hours. All specime... 04/22/17 Blood Culture - Preliminary, Resulted No Growth after 72 hours. All specime... 04/22/17 Urine Culture - Final, Complete MAURO HERNANDEZ PA-C Apr 26, 2017 11:13 Julio Davis M.D. Apr 26, 2017 17:29
[2017-04-26] MEDS ORDERED: GLUCOSE 4 GM CHEW TABLET PO PRN (11:30)
[2017-04-26] MEDS ORDERED: GLUCAGON FOR INJ 1 MG VIAL (J1610) SC PRN (11:30)
[2017-04-26] MEDS ORDERED: DEXTROSE 50% 50 ML SYRINGE IV PRN (11:30)
[2017-04-26] MEDS: MAGNESIUM OXIDE 400 MG TAB (MAG-OX) PO SCH ×2 (11:45→21:26)
[2017-04-26] MEDS: HumaLOG INSULIN (NovoLOG) PER UNIT SC SCH ×3 (11:46→21:27)
[2017-04-26 14:00] VITALS: BP 125/59
[2017-04-26 22:00] VITALS: BP 123/57
[2017-04-27 05:35] LABS: MEAN CORPUSCULAR HEMOGLOBIN 29.7 pg (27.0-33.0); MEAN CORPUSCULAR HGB CONC 31.6 g/dl (32.0-36.5); RED CELL DISTRIBUTION WIDTH 13.4 % (11.5-14.5); WHITE BLOOD COUNT 6.8 K/mm3 (4.0-10.0)
[2017-04-27 05:53] LABS: ALKALINE PHOSPHATASE 143 U/L (45-117); ALT/SGPT 100 U/L (12-78); ANION GAP 11 MEQ/L (8-16); AST/SGOT 77 U/L (15-37); BILIRUBIN,TOTAL 0.9 MG/DL (0.2-1.0); BLOOD UREA NITROGEN 23 MG/DL (7-18); CARBON DIOXIDE LEVEL 27 MEQ/L (21-32); CHLORIDE LEVEL 99 MEQ/L (98-107); CREATININE FOR GFR 1.02 MG/DL (0.70-1.30); GLOMERULAR FILTRATION RATE > 60.0 (>35); GLUCOSE, FASTING 245 MG/DL (83-110); POTASSIUM SERUM 4.7 MEQ/L (3.5-5.1); SODIUM LEVEL 137 MEQ/L (136-145)
[2017-04-27 05:54] LABS: ALBUMIN 1.8 GM/DL (3.2-5.2); ALBUMIN/GLOBULIN RATIO 0.38 (1.00-1.93); MAGNESIUM LEVEL 1.7 MG/DL (1.8-2.4); TOTAL PROTEIN 6.6 GM/DL (6.4-8.2); URIC ACID 5.6 MG/DL (3.5-7.2)
[2017-04-27 06:00] VITALS: BP 126/79
[2017-04-27] MEDS: MAGNESIUM OXIDE 400 MG TAB (MAG-OX) PO SCH ×2 (08:22→20:42)
[2017-04-27] MEDS: OMEPRAZOLE 20 MG CAP PO SCH (08:22)
[2017-04-27] MEDS: METOPROLOL TART 12.5 MG PER 1/2 TAB PO SCH ×2 (08:23→20:43)
[2017-04-27] MEDS: HEPARIN SOD (PORCINE) 5000 UNITS/ML VIAL SC SCH ×2 (08:24→20:42)
[2017-04-27] MEDS: HumaLOG INSULIN (NovoLOG) PER UNIT SC SCH ×4 (08:24→20:43)
--- NOTE | 2017-04-27 10:31 | CR ---
DATE OF CONSULTATION: 04/26/2017 REASON FOR CONSULTATION: Evaluation of possible cholelithiasis in the face of mild liver function test abnormalities and known lymphoma. HISTORY OF PRESENT ILLNESS: The patient is an 81-year-old man who has recently had some upper abdominal discomfort which brought him to the emergency department on April 14. He was evaluated at that time with a CT scan which revealed some significant mesenteric and retroperitoneal adenopathy. At the time of that admission, his lipase was found to be slightly elevated at 396 and it subsequently chanelle the following morning to 1026 and then by the following day had returned to normal. He has been noted to have some very mild elevations of his liver function tests. His AST and ALT have both been elevated with the AST reaching a maximum of 194, the ALT 190 and the alk phos 199. Total bilirubin maximally was 1.2 on April 22. He underwent a CT-guided needle biopsy of his retroperitoneal adenopathy on April 16 which revealed malignant lymphoma. Because of his history of a brief rise in his lipase, he underwent further imaging studies to evaluate the possibility of cholelithiasis. A gallbladder ultrasound was done on April 22 which was read as "mild gallbladder sludge with diffuse fatty infiltration of the liver." He also had a nuclear biliary scan done on the which showed normal gallbladder function. Ejection fraction was not measured. An upper GI and small bowel study on April 25 showed a descending duodenal diverticulum and was otherwise negative for any pathology. He currently denies any abdominal pain. He denies any past history of pancreatitis, hepatitis, or yellow jaundice. He apparently has had some difficulties eating recently but says that that seems to be improving now. I was asked to evaluate the patient to see if further evaluation or treatment of his gallbladder was necessary at this point. ALLERGIES: There are no known drug allergies reported. CURRENT MEDICATIONS: Medications include: - sliding scale insulin coverage - magnesium oxide - Lopressor - subcutaneous heparin - Tylenol on an as-needed basis - Zofran as needed for nausea At home, he had also been on some metformin, simvastatin, pioglitazone, glipizide and Lasix. PAST SURGICAL HISTORY: He has had some basal cell carcinomas of the skin of the face and treated surgically. He has not had any abdominal surgery. His medical history is significant for diabetes. He has a history of hypertension. He has morbid obesity. He has hypercholesterolemia. His records indicate a history of chronic obstructive pulmonary disease and emphysema. He has osteoarthritis and coronary artery disease. He has some chronic lower extremity edema and some chronic kidney disease stage III. FAMILY HISTORY: Is not helpful. REVIEW OF SYSTEMS: The patient denies any shortness of breath or chest pain currently. He has got no cough or wheezing. He denies any dysuria or hematuria. He has had no melena or hematochezia. He denies any prior hepatitis, pancreatitis or jaundice. He does not describe episodic abdominal pain suggestive of biliary colic. PHYSICAL EXAMINATION: Reveals a morbidly obese older gentleman sitting in a chair. He is in no obvious discomfort. He recognized me from a visit within the last several years for removal of a cyst from the back of his neck. He is alert and appears oriented. Most recent vital signs show a pulse of approximately 109. His blood pressure is 126/62. Respiratory rate has been 20 with a pulse oximetry in the mid 90s on room air. Sclerae are anicteric. The mucous membranes are moist. His neck is supple. Heart: Exam shows a regular rate and rhythm. The lungs are clear though perhaps somewhat distant. The abdomen is obese with multiple small bruises consistent with his subcutaneous heparin shots. He has bowel sounds present. The abdomen is soft and without discrete tenderness. LABORATORY STUDIES: Most recent lab work from this morning showed a white count of 6 with a hemoglobin of 10, hematocrit 31 and platelet count of 365,000. Chemistry profile from this morning showed a sodium of 135, potassium 4.6, chloride 98, CO2 of 26, BUN of 23, creatinine 1.1 and a glucose of 246. His AST is 77, ALT 113, alk phos 152 with a total bilirubin normal at 0.9. Total protein is 6.8 with an albumin of 1.8. The lipase is 208. I reviewed his recent imaging to include his CT scans from mid April showing his retroperitoneal lymphadenopathy. I reviewed the images and report from his right upper quadrant ultrasound, his nuclear biliary scan, and his upper GI series with small-bowel follow-through. IMPRESSION: The patient has had some mild liver function tests elevations persisting during this hospital stay. His total bilirubin has ranged between approximately 0.9 and 1.2. He is not complaining of any pain currently. There is a suggestion from his gallbladder ultrasound that he has perhaps some gallbladder sludge but no definite stones were seen. There was one episode of elevation of his lipase to 1026 but this had resolved by the following morning. I do not think there is any convincing evidence at this point that his liver function test abnormalities are related to gallbladder disease. With his known lymphoma, I think this certainly represents bigger fish to messer than the possibility of evaluating him further for gallbladder sludge as an etiology for his liver function test abnormalities. At this point, I would not recommend any further evaluation of the gallbladder. Certainly if he develops symptoms more characteristic of biliary colic or further episodes of hyperamylasemia or hyperlipasemia, then evaluation would be warranted. I doubt that the findings on his gallbladder ultrasound represent an etiology for his trouble eating at this point as well. TRESSA
--- NOTE | 2017-04-27 11:23 | IPN ---
DATE: 04/26/2017 Mr. 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 HISTORY OF PRESENT ILLNESS: In late spring or early summer the patient developed a band-like pain involving his lower abdomen with intermittent diarrhea, nonbloody. He has apparently lost weight up to 30 pounds in the last few months. He presented to the emergency room April 15, though he was scheduled for a PET scan on Saturday the after late March abdomen and pelvis CT had shown some mesenteric adenopathy during an emergency department visit. On his 04/15/2017 admission, AST and ALT were elevated, bilirubin slightly elevated 1.1, GGT 94, lipase was 396. CT abdomen and pelvis showed mesenteric and retroperitoneal lymphadenopathy measuring up to 4 cm, compatible lymphoproliferative disorder but not significantly changed versus a 03/27/[address], which had shown extensive mesenteric and retroperitoneal adenopathy up to 4 cm. Of note, LDH on 04/15/2017 was 308 with an unremarkable CBC. During that admission, CT guided biopsy of the mesenteric adenopathy showed diffuse large B-cell lymphoma with double expresser immunohistochemistry but non-double hit FISH-- a higher risk diffuse large B-cell lymphoma with double expresser features, more aggressive subtype than non double expresser or non double hit diffuse large B-cell lymphoma. He was discharged butpresented again to the emergency room April 25 complaining of overwhelming weakness at home. He had a low grade temperature of 99.7, somewhat distended abdomen, orthostatic hypotension and was started on fluids and additional imaging performed, including liver ultrasound showing mild gallbladder sludge and diffuse fiber fatty infiltration of the liver, HIDA scan was suboptimal due to technical reasons, but negative for cholecystitis and an upper GI and small bowel x-ray with poor clearance of barium, a mildly prominent thoracic esophagus, increased lower esophageal sphincter tone, possible mildly achalasia, otherwise a negative upper GI follow through series. During this hospitalization, AST and ALT have remained elevated, currently 177 and 113 respectively with alkaline phosphatase 152, albumin continues low at 1.8. The patient has no leukocytosis or leukopenia, hemoglobin and hematocrit are 9.7 and 30.8, respectively, platelets are normal. PAST MEDICAL HISTORY: 1. Type 2 diabetes. 2. Hypertension. 3. Hypercholesterolemia. 4. Emphysema. 5. Chronic obstructive pulmonary disease (COPD) (the patient reports remote smoker, smoking history). 6. Coronary artery disease. 7. Vitamin D deficiency. 8. B12 deficiency (currently replete based on labs). 9. Chronic lower extremity brawny skin changes with mild peripheral edema. 10. Stage III chronic kidney disease. 11. Hypermagnesemia. 12. Osteoarthritis. ALLERGIES: No known drug allergies. HOME MEDICATIONS: Include: - aspirin - Lasix - glipizide - metformin - lisinopril - simvastatin - pioglitazone SOCIAL HISTORY: The patient is . His lives in [facility]. He recently was relocated to the [facility] and lives alone. He is not completely independent of activities of daily living. He has as granddaughter who helps him out. He goes out for most meals, does not do his own cooking but does do some of his own shopping. Former smoker, acknowledges a 20 pack-year smoking history. Denies alcohol. FAMILY HISTORY: Not elicited. REVIEW OF SYSTEMS: The patient reports a ECOG performance status of 0 to 1 up until his recent admission here, 30 pounds recent weight loss. Denies fevers. Denies frequent infections over the last year. Intermittent abdominal pain over the last month. Currently none. No vomiting, poor appetite. No blood in stool or urine. No hematemesis or hemoptysis. No palpitations or chest pain. Remainder of review of systems is negative. PHYSICAL EXAMINATION: Limited bedside examination while in the patient's recliner chair. VITAL SIGNS: Temperature 97.8, blood pressure 125/59, heart rate 105, respiratory rate 20, oxygen saturation 95% on room air. Patient is an obese, well-groomed appearing man seated in his chair in no distress. RESPIRATORY: Clear lungs to auscultation anteriorly and posteriorly. Mild basilar dry crackles. CARDIAC: Mild tachycardia, regular. No irregularity. No gallops. Distant heart sounds. No audible murmur. ABDOMEN: Soft, protuberant, nondistended, no shifting dullness. No palpable splenomegaly or hepatomegaly. No tenderness in the lower abdominal quadrants to deep palpation, large pannus. No inguinal adenopathy bilaterally. LYMPH NODES: No submandibular cervical, supraclavicular or axillary adenopathy or inguinal adenopathy bilaterally. LABORATORY DATA: As described. IMPRESSION: 1. 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 The patient has had some group B symptoms, including weight loss and malaise. What is unclear is whether his acute abdominal pain and transaminitis and elevated lipase are related to the lymphoma or a secondary process, such as an acute cholecystitis or subclinical cholecystitis related to his weight loss. On this, his second admission in the last several weeks, his GI symptoms seem in abeyance. He reports feeling better now, though his appetite is still poor. He is working hard to eat and has gotten out of bed to do some exercise. At the bedside, I spoke at length with Mr. Saab and his daughter and son, both healthcare proxies, at about his diagnosis. It is unclear whether all of his lab findings are related to the lymphoma, but malaise and anorexia could be explained by mesenteric adenopathy. What is clear is that between 03/27 and 04/15 there was not a major increase in the extent of mesenteric adenopathy. It would be worthwhile to repeat an abdomen and pelvis CT to assess for short-term interval increase in the adenopathy to get a sense of the tempo of his disease. Notable also is the lack of leukocytosis or lymphocytosis on peripheral labs lack of adenopathy involving the chest and modestly elevated LDH. This also should be repeated as a significant increase in the LDH would suggest a higher rate of turnover of lymphoma cells and neoplastic growth. Finally, I explained double expresser diffuse large B-cell lymphoma as a high-risk B-cell lymphoma typically treated with chemotherapy and rituximab on an every 3-week basis; for a younger patient a possibly a more aggressive anti lymphoma regimen would be chosen but for someone this patient's age and performance status, a reasonable approach would be to start with high-dose prednisone, possibly adding rituximab for one cycle, and to follow up with full R-CHOP or "mini R-CHOP" (a half dose regimen given in elderly patients). At the end of a lengthy discussion of risks, benefits and side effects, including, but not limited to alopecia, myelosuppression, nausea, vomiting, tumor lysis syndrome, the patient, his son and daughter and I came to the following agreement about a plan: RECOMMENDATIONS 1. Recheck LDH, check uric acid. 2. Within the next several days, obtain abdomen, pelvis CT with oral and IV contrast to reassess radio growth of lymph nodes. 3. Currently, the patient does not want to start high-dose prednisone while inpatient. This is very reasonable. The typical starting dose would be 1 mg/kg given over 5 days with appropriate GI prophylaxis such as a proton pump inhibitor. 5. I recommend starting allopurinol 300 mg by mouth daily, anticipating potential treatment in the next several weeks and the risk and attenuating risk of tumor lysis syndrome. Similarly, unless contraindicated, I would consider starting proton pump inhibitor now, for example, omeprazole 20 mg p.o. daily, if not already on the medication list or at least as part of the discharge regimen. I agree with ondansetron on an as needed basis. The patient can also get outpatient ondansetron up to 8 mg every 6 hours as needed nausea and also use prochlorperazine 10 mg every 8 hours as needed for nausea. 6. The current plan we came to was getting the patient stronger inpatient, formally ruling out the gallbladder cause of his signs and symptoms and reassessing lymph node size, holding on starting any treatment, i.e., prednisone or rituximab or chemotherapy until he is outpatient. If he gains in strength it would be appropriate for him to see me fairly soon after discharge and we could discuss starting a partial regimen to help control the lymphoma until he feels ready to start mini R-CHOP or R-CHOP. I also emphasized today he is under no obligation to do any treatment whatsoever and he should think over all of these possibilities. I'll reconsult as needed; Modesta Dennison, Oncology Nurse Navigator, , can assist with getting a soon appointment in clinic. Discussed the case with Julio Davis MD and angie Cesar. Please call with any questions. Elaina Alvarado MD [phone] [facility]
--- NOTE | 2017-04-27 11:43 | IPNPDOC ---
Subjective Date Seen The patient was seen on 04/27/17. Subjective Chief Complaint/HPI The patient is a 81-year-old male admitted with a reason for visit of Orthostasis. General: Reports: Malaise ENT: Denies: Head Aches Pulmonary: Denies: Dyspnea, Cough Cardiovascular: Denies: Chest Pain, Palpitations Gastrointestinal: Denies: Vomiting, Abdominal Pain Hematologic: Denies: Bruising, Petecchia Objective Physical Examination General Exam: Positive: Alert, No Acute Distress Chest Exam: Positive: Clear to auscultation, Normal air movement Heart Exam: Positive: Rate Normal, Negative: Murmurs Abdomen Exam: Positive: Normal bowel sounds, Soft, Negative: Tenderness Extremity Exam: Positive: Edema (trace edema BL) Psych Exam: Negative: Mood NL (seems negative, depressed.) Assessment /Plan Problems (1) Malignant lymphoma Problem Text: Newly Diagnosed - per 04/16/17 CT guided biopsy -diffuse large B- cell, double-over expressor (bcl-2/c-myc) (poor prognosis) 04/26 case d/w Dr. Alvarado-plan repeat CT AP next week and check UA/LDH to help determine how aggressive lymphoma is (if elevated UA-start allo to prevent TLS and start PPI px). Favoring starting Rituxan/prednisone as first cycle OUTPATIENT, then mini-CHOP 04/14 CT AP: Extensive mesenteric and retroperitoneal lymphadenopathy most compatible with lymphoproliferative disorder. Further evaluation with PET/CT was previously recommended. 3. Sequelae of prior granulomatous disease. 4. Emphysema. 5. Additional findings as above. Thank you for your kind referral of this patient. We appreciate the opportunity to participate in this patient's care. (2) Transaminasemia Problem Text: 04/27 enzymes better today, no pain in RUQ concerning for recurrent biliary dysfunction 04/26 Boogie felt non-surgical, plan check HIDA c CCK/EF 04/28 given concern for recurrent abdominal pain/anorexia/increased AST/ALT/lipase now x 2 (as LFTs improved so did sx)-obviously would not want to start R-CHOP with recurrent biliary colic/acute cholecystitis risk 04/23 Liver US showed sludge and fatty liver infiltration 04/24 HIDA scan normal, but no EF performed 04/25 UGI with SBFT performed - no stricture or obstruction (3) Anorexia Status: Acute Problem Text: 04/27: multiple potential contributors to poor po intake: smoldering liver problem, lymphoma, depression. might benefit from mirtazapine. w/u as per increased LFTs progressively down 26 pounds since 01/2017 (321 to 295) (4) Severe protein-calorie malnutrition Status: Chronic Response to Treatment: Worse Problem Text: Consider PEG placement as above. (5) Hypomagnesemia Status: Acute Problem Text: 04/26 - mag low again. start po magnesium s/p IV mag runs x 2 (6) Weakness Status: Acute Response to Treatment: Worse Problem Text: 04/25/17 last PT evaluation-not safe (7) CKD (chronic kidney disease), stage III Status: Chronic Response to Treatment: Stable (8) HTN (hypertension) Status: Chronic Response to Treatment: Stable Problem Text: 04/27 pressure remains controlled. HR tends to be in low 100's however. 8.25 - BP better with restart of Metoprolol Has slight le edema developing Normally on diuretic - may need to restart eventually, but BP remains on low normal side. I believe his weakness on admission was partly related to diuretic and BP meds causing orthostasis in patient with poor oral intake and significant weight loss recently (9) Diabetes mellitus Status: Chronic Response to Treatment: Stable Problem Text: meds on hold Plan/VTE VTE Prophylaxis Ordered?: Yes Plan Therapy: PT, OT VS, I&O, 24H, Fishbone Vital Signs/I&O Vital Signs Date Time Temp Pulse Resp B/P (MAP) Pulse Ox O2 Delivery O2 Flow Rate FiO2 04/27/17 08:23 106 126/79 04/27/17 06:00 98.0 18 94 Room Air I&O- Last 24 Hours up to 6 AM 04/27/17 06:00 Intake Total 1380 ml Output Total 500 ml Balance 880 ml Laboratory Data 24H LABS Laboratory Tests 2 04/26/17 16:44: Bedside Glucose (Misc Panel) 298H 04/26/17 20:24: Bedside Glucose (Misc Panel) 297H 04/27/17 05:24: Anion Gap 11, Glomerular Filtration Rate > 60.0, Blood Urea Nitrogen 23H, Creatinine 1.02, Sodium Level 137, Potassium Level 4.7, Chloride Level 99, Carbon Dioxide Level 27, Calcium Level 9.0, Aspartate Amino Transf (AST/SGOT) 77H, Alanine Aminotransferase (ALT/SGPT) 100H, Lactate Dehydrogenase 399H, Alkaline Phosphatase 143H, Total Bilirubin 0.9, Uric Acid 5.6, Total Protein 6.6 , Albumin 1.8L, Magnesium Level 1.7L, Albumin/Globulin Ratio 0.38L CBC/BMP Laboratory Tests 04/27/17 05:24 Red Blood Count 3.21 L, Mean Corpuscular Volume 94.0, Mean Corpuscular Hemoglobin 29.7, Mean Corpuscular Hemoglobin Concent 31.6 L, Red Cell Distribution Width 13.4, Calcium Level 9.0, Aspartate Amino Transf (AST/SGOT) 77 H, Alanine Aminotransferase (ALT/SGPT) 100 H, Lactate Dehydrogenase 399 H, Alkaline Phosphatase 143 H, Total Bilirubin 0.9, Uric Acid 5.6, Total Protein 6.6, Albumin 1.8 L Microbiology Microbiology 04/22/17 Blood Culture - Preliminary, Resulted No Growth after 72 hours. All specime... 04/22/17 Blood Culture - Preliminary, Resulted No Growth after 72 hours. All specime... 04/22/17 Urine Culture - Final, Complete Ross Woodruff MD Apr 27, 2017 11:42
[2017-04-27 14:00] VITALS: BP 120/72
[2017-04-27 22:00] VITALS: BP 125/63
[2017-04-28 06:00] VITALS: BP 137/81
[2017-04-28 06:14] LABS: MEAN CORPUSCULAR HEMOGLOBIN 29.1 pg (27.0-33.0); MEAN CORPUSCULAR HGB CONC 30.8 g/dl (32.0-36.5); MEAN CORPUSCULAR VOLUME 94.2 fl (80.0-96.0); RED CELL DISTRIBUTION WIDTH 13.3 % (11.5-14.5); WHITE BLOOD COUNT 5.5 K/mm3 (4.0-10.0)
[2017-04-28 06:47] LABS: ALBUMIN 1.8 GM/DL (3.2-5.2); ALBUMIN/GLOBULIN RATIO 0.34 (1.00-1.93); ALKALINE PHOSPHATASE 148 U/L (45-117); ALT/SGPT 95 U/L (12-78); ANION GAP 10 MEQ/L (8-16); AST/SGOT 63 U/L (15-37); BILIRUBIN,TOTAL 1.1 MG/DL (0.2-1.0); BLOOD UREA NITROGEN 25 MG/DL (7-18); CARBON DIOXIDE LEVEL 28 MEQ/L (21-32); CHLORIDE LEVEL 98 MEQ/L (98-107); CREATININE FOR GFR 1.22 MG/DL (0.70-1.30); GLOMERULAR FILTRATION RATE > 60.0 (>35); GLUCOSE, FASTING 238 MG/DL (83-110); MAGNESIUM LEVEL 1.9 MG/DL (1.8-2.4); POTASSIUM SERUM 4.7 MEQ/L (3.5-5.1); SODIUM LEVEL 136 MEQ/L (136-145); TOTAL PROTEIN 7.1 GM/DL (6.4-8.2)
[2017-04-28] MEDS: HumaLOG INSULIN (NovoLOG) PER UNIT SC SCH ×4 (07:49→21:00)
[2017-04-28 08:26] VITALS: BP 126/61
[2017-04-28] MEDS: HEPARIN SOD (PORCINE) 5000 UNITS/ML VIAL SC SCH ×2 (08:27→21:36)
[2017-04-28] MEDS: MAGNESIUM OXIDE 400 MG TAB (MAG-OX) PO SCH ×2 (08:28→21:36)
[2017-04-28] MEDS: OMEPRAZOLE 20 MG CAP PO SCH (08:28)
[2017-04-28] MEDS: METOPROLOL TART 12.5 MG PER 1/2 TAB PO SCH ×3 (08:28→21:35)
[2017-04-28] MEDS ORDERED: PROMETHAZINE 25 MG TAB PO PRN (11:00)
[2017-04-28] MEDS ORDERED: ONDANSETRON 4 MG TAB (S0181) PO PRN (11:00)
[2017-04-28] MEDS: ALLOPURINOL 300 MG TAB PO SCH (11:28)
--- NOTE | 2017-04-28 11:49 | IPNPDOC ---
Subjective Date Seen The patient was seen on 04/28/17. Subjective Chief Complaint/HPI The patient is a 81-year-old male admitted with a reason for visit of Orthostasis. Constitutional: Denies: Chills, Night Sweats Skin: Denies: Rash, Jaundice Pulmonary: Denies: Dyspnea, Cough Cardiovascular: Denies: Chest Pain, Palpitations Gastrointestinal: Reports: Abdominal Pain (he reports having transient abdominal pain last evening, now resolved.), Denies: Nausea Hematologic: Denies: Bruising, Petecchia Neurological: Denies: Numbness, Change in speech Objective Physical Examination General Exam: Positive: Alert, No Acute Distress Chest Exam: Positive: Clear to auscultation, Normal air movement Heart Exam: Positive: Rate Normal, Negative: Murmurs Abdomen Exam: Positive: Normal bowel sounds, Soft, Other (specifically negative Ewing's today.), Negative: Tenderness Extremity Exam: Positive: Edema (trace edema BL) Psych Exam: Negative: Mood NL (seems negative, depressed.) Assessment /Plan Problems (1) Malignant lymphoma 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 Alvarado reviewed. Although not ordered by dietitian consultant, allopurinol was recommended along with PPI and anti-emetics. These were ordered today. Newly Diagnosed - per 04/16/17 CT guided biopsy -diffuse large B-cell, double- over expressor (bcl-2/c-myc) (poor prognosis) 04/26 case d/w Dr. Alvarado-plan repeat CT AP next week and check UA/LDH to help determine how aggressive lymphoma is (if elevated UA-start allo to prevent TLS and start PPI px). Favoring starting Rituxan/prednisone as first cycle OUTPATIENT, then mini-CHOP 04/14 CT AP: Extensive mesenteric and retroperitoneal lymphadenopathy most compatible with lymphoproliferative disorder. Further evaluation with PET/CT was previously recommended. 3. Sequelae of prior granulomatous disease. 4. Emphysema. 5. Additional findings as above. Thank you for your kind referral of this patient. We appreciate the opportunity to participate in this patient's care. (2) Transaminasemia Problem Text: 04/27 enzymes better today, no pain in RUQ concerning for recurrent biliary dysfunction 04/26 Boogie felt non-surgical, plan check HIDA c CCK/EF 04/28 given concern for recurrent abdominal pain/anorexia/increased AST/ALT/lipase now x 2 (as LFTs improved so did sx)-obviously would not want to start R-CHOP with recurrent biliary colic/acute cholecystitis risk 04/23 Liver US showed sludge and fatty liver infiltration 04/24 HIDA scan normal, but no EF performed 04/25 UGI with SBFT performed - no stricture or obstruction (3) Anorexia Status: Acute Problem Text: 04/28 intake remains poor. albumin, a marker of malnutrition remains very low 04/27: multiple potential contributors to poor po intake: smoldering liver problem, lymphoma, depression. might benefit from mirtazapine. w/u as per increased LFTs progressively down 26 pounds since 01/2017 (321 to 295) (4) Severe protein-calorie malnutrition Status: Chronic Response to Treatment: Worse Problem Text: Consider PEG placement as above. (5) Hypomagnesemia Status: Acute Problem Text: 04/26 - mag low again. start po magnesium s/p IV mag runs x 2 (6) Weakness Status: Acute Response to Treatment: Worse Problem Specific Plan: Monitor Clinically Problem Text: 04/28 PT note from 04/27 says still not safe 04/25/17 last PT evaluation-not safe (7) CKD (chronic kidney disease), stage III Status: Chronic Response to Treatment: Stable Problem Specific Plan: Monitor Clinically (8) HTN (hypertension) Status: Chronic Response to Treatment: Stable Problem Specific Plan: Monitor Clinically Problem Text: 04/28 HR persists in low 100's, will increase metoprolol to tid 04/27 pressure remains controlled. HR tends to be in low 100's however. . - BP better with restart of Metoprolol Has slight le edema developing Normally on diuretic - may need to restart eventually, but BP remains on low normal side. I believe his weakness on admission was partly related to diuretic and BP meds causing orthostasis in patient with poor oral intake and significant weight loss recently (9) Diabetes mellitus Status: Chronic Response to Treatment: Stable Problem Specific Plan: Monitor Clinically Problem Text: meds on hold Plan/VTE VTE Prophylaxis Ordered?: Yes Plan Therapy: PT, OT Anticipated Discharge: Home With Services (Patient still not decided as to whether he will start chemotherapy. Option would be Hospice.) VS, I&O, 24H, Fishbone Vital Signs/I&O Vital Signs Date Time Temp Pulse Resp B/P (MAP) Pulse Ox O2 Delivery O2 Flow Rate FiO2 04/28/17 08:28 106 126/61 04/28/17 08:26 97.3 19 97 Room Air I&O- Last 24 Hours up to 6 AM 04/28/17 06:00 Intake Total 1080 ml Output Total 450 ml Balance 630 ml Laboratory Data 24H LABS Laboratory Tests 2 04/27/17 16:27: Bedside Glucose (Misc Panel) 263H 04/27/17 20:28: Bedside Glucose (Misc Panel) 280H 04/28/17 05:38: Anion Gap 10, Glomerular Filtration Rate > 60.0, Blood Urea Nitrogen 25H, Creatinine 1.22, Sodium Level 136, Potassium Level 4.7, Chloride Level 98, Carbon Dioxide Level 28, Calcium Level 9.0, Aspartate Amino Transf (AST/SGOT) 63H, Alanine Aminotransferase (ALT/SGPT) 95H, Alkaline Phosphatase 148H, Total Bilirubin 1.1H, Total Protein 7.1, Albumin 1.8L, Magnesium Level 1.9, Albumin/ Globulin Ratio 0.34L CBC/BMP Laboratory Tests 04/28/17 05:38 Red Blood Count 3.50 L, Mean Corpuscular Volume 94.2, Mean Corpuscular Hemoglobin 29.1, Mean Corpuscular Hemoglobin Concent 30.8 L, Red Cell Distribution Width 13.3, Calcium Level 9.0, Aspartate Amino Transf (AST/SGOT) 63 H, Alanine Aminotransferase (ALT/SGPT) 95 H, Alkaline Phosphatase 148 H, Total Bilirubin 1.1 H, Total Protein 7.1, Albumin 1.8 L Microbiology Microbiology 04/22/17 Blood Culture - Final, Complete NO GROWTH AFTER 5 DAYS 04/22/17 Blood Culture - Final, Complete NO GROWTH AFTER 5 DAYS 04/22/17 Urine Culture - Final, Complete Ross Woodruff MD Apr 28, 2017 11:49
[2017-04-28 14:00] VITALS: BP 140/66
[2017-04-28 16:58] VITALS: BP 131/72
[2017-04-28 22:00] VITALS: BP 147/69
[2017-04-29 06:00] VITALS: BP 163/77
[2017-04-29 06:05] LABS: MEAN CORPUSCULAR HEMOGLOBIN 29.6 pg (27.0-33.0); MEAN CORPUSCULAR HGB CONC 30.9 g/dl (32.0-36.5); MEAN CORPUSCULAR VOLUME 95.7 fl (80.0-96.0); RED CELL DISTRIBUTION WIDTH 13.9 % (11.5-14.5); WHITE BLOOD COUNT 7.1 K/mm3 (4.0-10.0)
[2017-04-29 06:22] LABS: ALBUMIN 1.8 GM/DL (3.2-5.2); ALBUMIN/GLOBULIN RATIO 0.34 (1.00-1.93); ALKALINE PHOSPHATASE 137 U/L (45-117); ALT/SGPT 79 U/L (12-78); ANION GAP 9 MEQ/L (8-16); AST/SGOT 54 U/L (15-37); BILIRUBIN,TOTAL 1.1 MG/DL (0.2-1.0); BLOOD UREA NITROGEN 28 MG/DL (7-18); CALCIUM LEVEL 9.3 MG/DL (8.8-10.2); CARBON DIOXIDE LEVEL 27 MEQ/L (21-32); CHLORIDE LEVEL 98 MEQ/L (98-107); CREATININE FOR GFR 1.23 MG/DL (0.70-1.30); GLOMERULAR FILTRATION RATE > 60.0 (>35); GLUCOSE, FASTING 252 MG/DL (83-110); MAGNESIUM LEVEL 1.8 MG/DL (1.8-2.4); POTASSIUM SERUM 4.7 MEQ/L (3.5-5.1); SODIUM LEVEL 134 MEQ/L (136-145); TOTAL PROTEIN 7.1 GM/DL (6.4-8.2)
[2017-04-29] MEDS ORDERED: GASTROGRAFIN SOLUTION 30ML PO ONE (06:30)
[2017-04-29] MEDS ORDERED: GASTROGRAFIN SOLUTION 30ML (Q9963) PO ONE (07:00)
[2017-04-29] MEDS: HumaLOG INSULIN (NovoLOG) PER UNIT SC SCH ×4 (07:30→20:49)
[2017-04-29] MEDS ORDERED: ISOVUE-370 76% 100ML VIAL (Q9967) As Ordered ONE (08:07)
[2017-04-29] MEDS: MAGNESIUM OXIDE 400 MG TAB (MAG-OX) PO SCH ×2 (09:19→20:49)
[2017-04-29] MEDS: OMEPRAZOLE 20 MG CAP PO SCH (09:20)
[2017-04-29] MEDS: METOPROLOL TART 12.5 MG PER 1/2 TAB PO SCH ×3 (09:20→20:49)
[2017-04-29] MEDS: ALLOPURINOL 300 MG TAB PO SCH (09:20)
[2017-04-29] MEDS: HEPARIN SOD (PORCINE) 5000 UNITS/ML VIAL SC SCH ×2 (09:20→20:49)
--- NOTE | 2017-04-29 10:01 | REP ---
CT abdomen and pelvis with IV and oral contrast: History: Followup mesenteric jacqueline enlargement. History of lymphoma. Comparison CT study April 14, 2017. CT contrast dose: 100 mL of Isovue [address] findings: Preliminary digital bottom finisher radiograph is unremarkable. The lung bases show a calcified benign granuloma in the right lower lobe. No pleural effusion is seen. There are granulomatous calcifications scattered throughout the spleen. There are several accessory splenules. No adrenal lesion is seen. The gallbladder is unremarkable. There is marked celiac axis, some superior mesenteric axis, and moderate periaortic pericaval lymphadenopathy seen in the abdomen. The largest lymph node is a celiac periportal node measuring 7.6 x 5.4 cm today, 7.5 x 4.6 cm on April 14. Numerous other lymph nodes are seen in many of these appears slightly larger as well when compared with the recent prior study. A left celiac axis lymph node has increased to 3.5 cm from 3.2 cm. An aortocaval node measures 3.8 x 2.2 cm today, 3.2 x 1.8 cm on April 14. No new adenopathy is seen. The pancreas is displaced anteriorly somewhat by the adenopathy but otherwise intact. There is some small bowel mesenteric adenopathy again noted. Small cysts are seen in each kidney. The largest is on the right measuring 4.1 cm. A normal appendix is seen. Prostate, seminal vesicles, and urinary bladder are unremarkable. No bony destructive lesion is seen. Impression: Extensive upper abdominal and retroperitoneal lymphadenopathy. Several of the lymph nodes are a little larger than they were on April 14, 2017. Signed by Nas Duke MD 04/29/2017 02:44 P
--- NOTE | 2017-04-29 10:06 | IPNPDOC ---
Subjective Date Seen The patient was seen on 04/29/17. Subjective Chief Complaint/HPI The patient is a 81-year-old male admitted with a reason for visit of Orthostasis. Events since last encounter Pt this morning with his dgt at bedside. He remains undecided regarding his treatment status for lymphoma. He has gone to Radiology for CT this morning. General: Denies: Fatigue Constitutional: Denies: Chills, Fever Skin: Denies: Rash Pulmonary: Denies: Dyspnea, Cough Cardiovascular: Denies: Chest Pain, Palpitations Gastrointestinal: Reports: Diarrhea (loose stool at 5 AM.), Denies: Nausea, Vomiting Neurological: Reports: Weakness Psych: Reports: Mood Normal Objective Physical Examination General Exam: Positive: Alert, No Acute Distress Chest Exam: Positive: Clear to auscultation, Normal air movement Heart Exam: Positive: Rate Normal, Negative: Murmurs Abdomen Exam: Positive: Normal bowel sounds, Soft, Other (specifically negative Ewing's today.), Negative: Tenderness Extremity Exam: Positive: Edema (trace edema BL) Psych Exam: Negative: Mood NL (seems negative, depressed.) Assessment /Plan Problems (1) Malignant lymphoma 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 He hopes to obtain some information on the CT today and HIDA tomorrow that will help clarify his decision for him. 04/[address] Alvarado reviewed. Although not ordered by managed services consultant, allopurinol was recommended along with PPI and anti-emetics. These were ordered today. Newly Diagnosed - per 04/16/17 CT guided biopsy -diffuse large B-cell, double- over expressor (bcl-2/c-myc) (poor prognosis) 04/26 case d/w Dr. Alvarado-plan repeat CT AP next week and check UA/LDH to help determine how aggressive lymphoma is (if elevated UA-start allo to prevent TLS and start PPI px). Favoring starting Rituxan/prednisone as first cycle OUTPATIENT, then mini-CHOP 04/14 CT AP: Extensive mesenteric and retroperitoneal lymphadenopathy most compatible with lymphoproliferative disorder. Further evaluation with PET/CT was previously recommended. 3. Sequelae of prior granulomatous disease. 4. Emphysema. 5. Additional findings as above. Thank you for your kind referral of this patient. We appreciate the opportunity to participate in this patient's care. (2) Transaminasemia Problem Text: 04/29 - LFTs and Alk phos trending down, NO abd pain. CT A & P results pending, HIDA sched for 04/30. 04/27 enzymes better today, no pain in RUQ concerning for recurrent biliary dysfunction 04/26 Boogie felt non-surgical, plan check HIDA c CCK/EF 04/28 given concern for recurrent abdominal pain/anorexia/increased AST/ALT/lipase now x 2 (as LFTs improved so did sx)-obviously would not want to start R-CHOP with recurrent biliary colic/acute cholecystitis risk 04/23 Liver US showed sludge and fatty liver infiltration 04/24 HIDA scan normal, but no EF performed 04/25 UGI with SBFT performed - no stricture or obstruction (3) Anorexia Status: Acute Problem Text: 04/28 intake remains poor. albumin, a marker of malnutrition remains very low 04/27: multiple potential contributors to poor po intake: smoldering liver problem, lymphoma, depression. might benefit from mirtazapine. w/u as per increased LFTs progressively down 26 pounds since 01/2017 (321 to 295) (4) Severe protein-calorie malnutrition Status: Chronic Response to Treatment: Worse Problem Text: Consider PEG placement as above. (5) Hypomagnesemia Status: Acute Problem Text: 04/26 - mag low again. start po magnesium s/p IV mag runs x 2 (6) Weakness Status: Acute Response to Treatment: Worse Problem Specific Plan: Monitor Clinically Problem Text: 04/28 PT note from 04/27 says still not safe 04/25/17 last PT evaluation-not safe (7) CKD (chronic kidney disease), stage III Status: Chronic Response to Treatment: Stable Problem Specific Plan: Monitor Clinically (8) HTN (hypertension) Status: Chronic Response to Treatment: Stable Problem Specific Plan: Monitor Clinically Problem Text: 04/28 HR persists in low 100's, will increase metoprolol to tid 04/27 pressure remains controlled. HR tends to be in low 100's however. . - BP better with restart of Metoprolol Has slight le edema developing Normally on diuretic - may need to restart eventually, but BP remains on low normal side. I believe his weakness on admission was partly related to diuretic and BP meds causing orthostasis in patient with poor oral intake and significant weight loss recently (9) Diabetes mellitus Status: Chronic Response to Treatment: Stable Problem Specific Plan: Monitor Clinically Problem Text: meds on hold Plan/VTE VTE Prophylaxis Ordered?: Yes Plan Therapy: PT, OT Anticipated Discharge: Home With Services (Patient still not decided as to whether he will start chemotherapy. Option would be Hospice.) VS, I&O, 24H, Fishbone Vital Signs/I&O Vital Signs Date Time Temp Pulse Resp B/P (MAP) Pulse Ox O2 Delivery O2 Flow Rate FiO2 04/29/17 09:20 104 139/65 04/29/17 06:00 97.8 20 94 04/28/17 21:45 Room Air I&O- Last 24 Hours up to 6 AM 04/29/17 05:59 Intake Total 980 ml Output Total 300 ml Balance 680 ml Laboratory Data 24H LABS Laboratory Tests 2 04/28/17 11:49: Bedside Glucose (Misc Panel) 236H 04/28/17 17:00: Bedside Glucose (Misc Panel) 231H 04/28/17 20:28: Bedside Glucose (Misc Panel) 234H 04/29/17 05:39: Anion Gap 9, Glomerular Filtration Rate > 60.0, Blood Urea Nitrogen 28H, Creatinine 1.23, Sodium Level 134L, Potassium Level 4.7, Chloride Level 98, Carbon Dioxide Level 27, Calcium Level 9.3, Aspartate Amino Transf (AST/SGOT) 54H, Alanine Aminotransferase (ALT/SGPT) 79H, Alkaline Phosphatase 137H, Total Bilirubin 1.1H, Total Protein 7.1, Albumin 1.8L, Magnesium Level 1.8, Albumin/ Globulin Ratio 0.34L 04/29/17 06:19: Bedside Glucose (Misc Panel) 259H CBC/BMP Laboratory Tests 04/29/17 05:39 Red Blood Count 3.29 L, Mean Corpuscular Volume 95.7, Mean Corpuscular Hemoglobin 29.6, Mean Corpuscular Hemoglobin Concent 30.9 L, Red Cell Distribution Width 13.9, Calcium Level 9.3, Aspartate Amino Transf (AST/SGOT) 54 H, Alanine Aminotransferase (ALT/SGPT) 79 H, Alkaline Phosphatase 137 H, Total Bilirubin 1.1 H, Total Protein 7.1, Albumin 1.8 L Microbiology Microbiology 04/22/17 Blood Culture - Final, Complete NO GROWTH AFTER 5 DAYS 04/22/17 Blood Culture - Final, Complete NO GROWTH AFTER 5 DAYS 04/28/17 Gastrointestinal Tract Panel (PCR) - Final, Complete 04/22/17 Urine Culture - Final, Complete NABIL STONE PA-C Apr 29, 2017 10:05
--- NOTE | 2017-04-29 12:06 | IPN ---
DATE: 04/29/2017 Rafiq is seen today. There is no supplements that generated by [employer] [employer]. I spoke at length with Rafiq and his daughter. I also called Dr. Claudine Alvarado MD from oncology. Rafiq's CT scans showed a slight increase in size of his abdominal lymphadenopathy compared to CT from just a few weeks ago. His gallbladder workup has been unimpressive, essentially just showing some sludge. I have cancelled the nuclear medicine gallbladder test for the ejection fraction as I don't think his findings are going to prompt any kind of surgical intervention. His focus at this point needs to be on beginning therapy for his lymphoma. Dr. Alvarado is setting up an outpatient appointment for him and is planning to, with the patient's consent, initiate chemotherapy at the time of the initial office visit. I spoke with the patient and daughter about this. He is aware of the need to expedite this oncologic assessment. Will order a home safety evaluation for tomorrow and hopefully he can be discharged tomorrow. Will followup through oncology. It is Dr. Alvarado belief that most of his abdominal symptoms are related to bulky adenopathy and his GI symptoms will improve with treatment of the lymphoma.
[2017-04-29 14:00] VITALS: BP 136/67
[2017-04-29 22:00] VITALS: BP 136/70
[2017-04-29 22:50] VITALS: BP 148/69
[2017-04-30 06:00] VITALS: BP 129/69
[2017-04-30 06:50] LABS: BASO % 0.1 % (0.0-1.0); EOS % 0.1 % (0.0-3.0); LARGE UNSTAINED CELL # 0.1 K/mm3 (0.0-0.4); LYMPH # 0.3 K/mm3 (1.5-4.5); LYMPH % 5.4 % (24.0-44.0); MEAN CORPUSCULAR HEMOGLOBIN 29.4 pg (27.0-33.0); MEAN CORPUSCULAR VOLUME 94.7 fl (80.0-96.0); MONO # 0.5 K/mm3 (0.0-0.8); MONO % 7.3 % (0.0-5.0); NEUTROPHILS # 5.4 K/mm3 (1.8-7.7); NEUTROPHILS % 85.1 % (36.0-66.0); PLATELET COUNT, AUTOMATED 364 k/mm3 (150-450); RED CELL DISTRIBUTION WIDTH 13.6 % (11.5-14.5); WHITE BLOOD COUNT 6.4 K/mm3 (4.0-10.0)
[2017-04-30 07:07] LABS: ALBUMIN 1.6 GM/DL (3.2-5.2); ALBUMIN/GLOBULIN RATIO 0.33 (1.00-1.93); ALKALINE PHOSPHATASE 132 U/L (45-117); ALT/SGPT 74 U/L (12-78); ANION GAP 9 MEQ/L (8-16); AST/SGOT 60 U/L (15-37); BILIRUBIN,TOTAL 1.1 MG/DL (0.2-1.0); BLOOD UREA NITROGEN 29 MG/DL (7-18); CALCIUM LEVEL 9.6 MG/DL (8.8-10.2); CARBON DIOXIDE LEVEL 29 MEQ/L (21-32); CHLORIDE LEVEL 97 MEQ/L (98-107); CREATININE FOR GFR 1.23 MG/DL (0.70-1.30); GLOMERULAR FILTRATION RATE > 60.0 (>35); GLUCOSE, FASTING 283 MG/DL (83-110); POTASSIUM SERUM 4.6 MEQ/L (3.5-5.1); SODIUM LEVEL 135 MEQ/L (136-145); TOTAL PROTEIN 6.4 GM/DL (6.4-8.2)
[2017-04-30 09:20] VITALS: BP 166/78
[2017-04-30] MEDS: MAGNESIUM OXIDE 400 MG TAB (MAG-OX) PO SCH (09:20)
[2017-04-30] MEDS: OMEPRAZOLE 20 MG CAP PO SCH (09:20)
[2017-04-30] MEDS: METOPROLOL TART 12.5 MG PER 1/2 TAB PO SCH (09:20)
[2017-04-30] MEDS: HEPARIN SOD (PORCINE) 5000 UNITS/ML VIAL SC SCH (09:21)
[2017-04-30] MEDS: ALLOPURINOL 300 MG TAB PO SCH (09:21)
[2017-04-30] MEDS: HumaLOG INSULIN (NovoLOG) PER UNIT SC SCH ×2 (09:22→12:46)
[2017-04-30] MEDS ORDERED: MAG400TA PO (11:38)
[2017-04-30] MEDS ORDERED: OMEP20CA3 PO (11:38)
[2017-04-30] MEDS ORDERED: ALLO15TA PO (11:38)
[2017-04-30] MEDS ORDERED: METO1TAB87 PO (11:38)
--- NOTE | 2017-04-30 13:51 | DSES ---
DATE OF ADMISSION: 04/22/2017 DATE OF DISCHARGE: 04/30/2017 PRIMARY CARE PROVIDER: Chelsea Mcbride ATTENDING TODAY: Dr. Adams Mcbride HISTORY: This is an 81-year-old male patient who presented to [facility] Emergency Room with decreasing appetite, decreasing activity, increasing amounts of loose stools, as well as low-grade fevers at home. He has recently been diagnosed with lymphoma, abdominal pain, and potential pancreatitis. He was noted to have leukocytosis, elevated lactic acid, and elevated LFTs and, therefore, he was admitted to the hospital for further management. During his hospitalization, he has remained medically stable. Gastrointestinal (GI) panel was obtained and was negative. His loose stools have improved in terms of frequency, although his stools in general are still rather loose. He did undergo a CT scan yesterday which showed extensive abdominal and retroperitoneal lymphadenopathy with some of the lymph nodes enlarged compared with the previous study done on 04/14/2017. He also underwent upper GI with small bowel follow-through which revealed poor clearance of the barium from the mildly prominent thoracic esophagus with increased lower esophageal sphincter tone, questionable mild achalasia. He had duodenal diverticulum noted. Otherwise, it was a benign exam. HIDA scan, without any evidence of cholelithiasis. Liver ultrasound revealed gallbladder sludge, diffuse fibrofatty infiltration of the liver. His LFTs have improved, although do remain mildly elevated. He has been seen in consultation by Dr. Alvarado as well as by Dr. Hyman. Dr. Hyman felt he was nonoperative. Dr. 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 Patient is undecided in terms of his willingness to proceed with treatment. At this time, he has been cleared by physical therapy. He has an appointment to see Dr. Alvarado as an outpatient on 05/02/2017 to clarify some of his concerns and prepare for a final decision in terms of whether he will accept chemotherapy treatment for his recently diagnosed lymphoma. His discharge diagnoses include: Malignant lymphoma. Transaminasemia. Anorexia. Severe protein calorie malnutrition. Hypomagnesemia. Weakness. Chronic kidney disease, stage III. Hypertension. Diabetes mellitus type 2. Morbid obesity. DISCHARGE MEDICATIONS: Include; - allopurinol 300mg daily - magnesium oxide 400 mg twice daily - metoprolol 12.5 mg by mouth three times a day - omeprazole 40 mg daily - aspirin 81 mg daily - vitamin B12 1000 mcg daily - furosemide 20 mg daily - metformin 1000 mg by mouth twice a day - simvastatin 20 mg by mouth nightly DISCHARGE PLAN: Will be to followup with Dr. Alvarado as scheduled. Followup with Chelsea Mcbride in 1 week. Activities should be as tolerated. Diet should be consistent carbohydrate. edited: 04/30/2017 [id number] [email or web address]
== END 2017-04-30 13:44 | disposition home health service (06) | DRG 840 ==
LOC: M ED 14:36 → M ED INP 17:41 → M PCU 21:12 → M MSPAV 04-23 13:27
PROVIDERS: ADMIT Internal Medicine; ATTEND Family Medicine
DX: C83.30 Diffuse large B-cell lymphoma, unspecified site (principal); E43 Unspecified severe protein-calorie malnutrition; Z68.41 Body mass index [BMI] 40.0-44.9, adult; R74.0 Nonspecific elevation of levels of transaminase and lactic acid dehydrogenase [LDH]; I95.1 Orthostatic hypotension; R19.7 Diarrhea, unspecified; N18.3 Chronic kidney disease, stage 3 (moderate); E66.01 Morbid (severe) obesity due to excess calories; I12.9 Hypertensive chronic kidney disease with stage 1 through stage 4 chronic kidney disease, or unspecified chronic kidney disease; E83.42 Hypomagnesemia; E11.22 Type 2 diabetes mellitus with diabetic chronic kidney disease; Z79.82 Long term (current) use of aspirin; Z79.84 Long term (current) use of oral hypoglycemic drugs; Z79.899 Other long term (current) drug therapy; J44.9 Chronic obstructive pulmonary disease, unspecified; I25.10 Atherosclerotic heart disease of native coronary artery without angina pectoris

== ENCOUNTER 2017-05-02 15:19 | Inpatient (IN) | payer MEDICARE, OTHER ==
[~2017-05-02] VITALS: Ht 180.3 cm; Wt 131.5 kg
[~2017-05-02 15:19] MED LIST changes: -ASPI81TAEC PO; -HYOS125TA PO; -LORA0.5T11 PO; -MORP20SO3 PO; -NAPR1TAB86 PO; -ZYLO300T4 PO
[2017-05-02 18:47] LABS: BASO % 0.1 % (0.0-1.0); EOS % 0.1 % (0.0-3.0); LARGE UNSTAINED CELL # 0.1 K/mm3 (0.0-0.4); LARGE UNSTAINED CELL % 0.8 % (0.0-4.0); LYMPH # 0.4 K/mm3 (1.5-4.5); LYMPH % 4.3 % (24.0-44.0); MEAN CORPUSCULAR HEMOGLOBIN 29.6 pg (27.0-33.0); MEAN CORPUSCULAR HGB CONC 31.2 g/dl (32.0-36.5); MEAN CORPUSCULAR VOLUME 95.1 fl (80.0-96.0); MONO # 0.4 K/mm3 (0.0-0.8); MONO % 4.6 % (0.0-5.0); NEUTROPHILS # 7.3 K/mm3 (1.8-7.7); NEUTROPHILS % 90.2 % (36.0-66.0); PLATELET COUNT, AUTOMATED 371 k/mm3 (150-450); WHITE BLOOD COUNT 8.1 K/mm3 (4.0-10.0)
[2017-05-02 19:05] LABS: ALBUMIN 1.8 GM/DL (3.2-5.2); ALBUMIN/GLOBULIN RATIO 0.32 (1.00-1.93); BILIRUBIN,TOTAL 1.3 MG/DL (0.2-1.0); CALCIUM LEVEL 9.5 MG/DL (8.8-10.2); CREATININE FOR GFR 1.69 MG/DL (0.70-1.30); GLOMERULAR FILTRATION RATE 41.7 (>35); MAGNESIUM LEVEL 2.1 MG/DL (1.8-2.4); POTASSIUM SERUM 4.8 MEQ/L (3.5-5.1); TOTAL PROTEIN 7.5 GM/DL (6.4-8.2)
[2017-05-02] MEDS ORDERED: NS 1,000 ML IV SCH (20:39)
[2017-05-02] MEDS ORDERED: ZYLO300T4 PO ×3 (20:39→20:43)
[2017-05-02] MEDS ORDERED: ASPI81TAEC PO (20:39)
[2017-05-02] MEDS ORDERED: NAPR1TAB86 PO (20:41)
[2017-05-02] MEDS ORDERED: OMEP20CA3 PO (20:41)
[2017-05-02] MEDS ORDERED: METO1TAB87 PO (20:41)
[2017-05-02] MEDS ORDERED: DEXTROSE 50% 50 ML SYRINGE IV PRN (20:45)
[2017-05-02] MEDS ORDERED: GLUCOSE 4 GM CHEW TABLET PO PRN (20:45)
[2017-05-02] MEDS ORDERED: ACETAMINOPHEN TAB 650MG DOSE (2X325MG) PO PRN (20:45)
[2017-05-02] MEDS ORDERED: GLUCAGON FOR INJ 1 MG VIAL (J1610) SC PRN (20:45)
--- NOTE | 2017-05-02 21:46 | HPEPDOC ---
General Date of Admission 05/02/17 at 9:45PM Chief Complaint The patient is a 81-year-old male Presented to the ER from home because of fatigue, weakness and elevated glucose. History of Present Illness Patient is an 81 year old male with a PMHx of NIDDM2, HTN, DLP, CKD3, Macrocytic anemia, Large B Cell Lymphoma, Basal cell CA (s/p Resected), OA and peripheral edema who presented to the ER after he had complaints of weakness, fatigue and elevated glucose at home. Patient was recently admitted from 04/22 to 04/30 for decreased appetite, decreasing activity and low grade fever. Patient noted that he was recently diagnosed with Large B Cell Lymphoma (via Biopsy) as a Stage 2B. He has followed up with Dr. Lynn today (05/02) as an outpatient to discuss treatment options for chemotherapy. However he was advised that he should have been on steroids in the past hospitalization, which he did not receive. He was told that at this time we would not start Prednisone because of his uncontrolled glucose. Patient noted that over the last few days since discharge he has been feeling weak, difficulty getting out of bed, and poor oral intake because of loss of appetite. Patients family was concerned after they noted that he had a blood sugar of >300 at home. Patient currently denies any nausea, vomiting, chest pain, shortness of breath, abdominal pain, constipation, or dysuria. He does note some loose stool. He denies any fever or chills at home. He notes that over the last 2 weeks he has lost 30 lbs and has had a very low appetite. Home Medications Scheduled Allopurinol (Zyloprim) 300 Mg Tab, 300 MG PO DAILY, (Reported) Aspirin (Aspirin EC) 81 Mg Tabec, 81 MG PO DAILY, (Reported) Cyanocobalamin (Vitamin B12) 1,000 Mcg Tab, 1,000 MCG PO DAILY, (Reported) Furosemide (Furosemide) 20 Mg Tab, 20 MG PO DAILY, (Reported) Metformin Hydrochloride (Metformin HCl) 500 Mg Tab, 1,000 MG PO BID, (Reported) Metoprolol Tartrate (Metoprolol Tartrate) 25 Mg Tab, 12.5 MG PO TID, (Reported) Omeprazole (Omeprazole) 20 Mg Cap, 40 MG PO DAILY, (Reported) Simvastatin (Simvastatin) 20 Mg Tab, 20 MG PO QHS, (Reported) Scheduled PRN Naproxen Sodium (Naproxen Sodium) 500 Mg Tab, 500 MG PO BID PRN for PAIN, ( Reported) Allergies Coded Allergies: No Known Allergies (Verified , 12/05/16) Past Medical History Medical History NIDDM2, HTN, DLP, CKD3, Macrocytic anemia, Large B Cell Lymphoma, Basal cell CA (s/p Resected), OA and Peripheral edema Surgical History None Family History - Non-contributory Social History - Denies the use of alcohol or illicit drugs; Quit smoking 40 years ago; Smoker of 20 years at 1 [facility] - Denies recent travel or sick contacts - Lives alone - 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; 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 Review of Symptoms Other systems 10 point review of systems complete; all negative otherwise stated in HPI Vital Signs - Vitals: BP 123/62, HR 111, RR 16, Sat 98%RA, Temp 97.6F - General: Lying in bed, No acute distress, Speaking in full sentences, AAOx3 - HEENT: NC, AT, PERRLA, EOMI - CVS: RRR, +S1S2 - Lungs: Fair air entry bilaterally, Clear to auscultation, No wheezing / rales / rhonchi - Abdomen: Soft, Non-distended, Non-tender, + Bowel sounds x 4 - Extremities: 1+ pitting edema bilaterally, No calf tenderness - Neuro: No focal motor or sensory deficit - Skin: No visible rashes Laboratory Data Labs 24H Laboratory Tests 2 05/02/17 18:26: White Blood Count 8.1, Red Blood Count 3.47L, Hemoglobin 10.3L, Hematocrit 33.0L , Mean Corpuscular Volume 95.1, Mean Corpuscular Hemoglobin 29.6, Mean Corpuscular Hemoglobin Concent 31.2L, Red Cell Distribution Width 14.0, Platelet Count 371, Neutrophils (%) (Auto) 90.2H, Lymphocytes (%) (Auto) 4.3L, Monocytes (%) (Auto) 4.6, Eosinophils (%) (Auto) 0.1, Basophils (%) (Auto) 0.1, Neutrophils # (Auto) 7.3, Lymphocytes # (Auto) 0.4L, Monocytes # (Auto) 0.4, Eosinophils # (Auto) 0.0, Basophils # (Auto) 0.0, Large Unclassified Cells % 0.8 , Large Unclassified Cells # 0.1, Anion Gap 13, Glomerular Filtration Rate 41.7 , Blood Urea Nitrogen 47#H, Creatinine 1.69H, Sodium Level 132L, Potassium Level 4.8, Chloride Level 93L, Carbon Dioxide Level 26, Calcium Level 9.5, Aspartate Amino Transf (AST/SGOT) 44H, Alanine Aminotransferase (ALT/SGPT) 63, Total Creatine Kinase 18L, Alkaline Phosphatase 141H, Total Bilirubin 1.3H, Total Protein 7.5, Albumin 1.8L, Magnesium Level 2.1, Creatine Kinase MB 1.0, Creatine Kinase MB Relative Index 5.55H, Troponin I 0.03, Albumin/Globulin Ratio 0.32L, Thyroid Stimulating Hormone (TSH) 0.942 05/02/17 20:15: Urine Appearance CLOUDYH, Urine Color TOMAS, Urine pH 5.0, Urine Specific [place] 1.020, Urine Protein NEGATIVE, Urine Glucose (UA) 3+H, Urine Ketones TRACEH, Urine Urobilinogen 0.2, Urine Bilirubin NEGATIVE, Urine Leukocyte Esterase NEGATIVE, Urine Blood NEGATIVE, Urine Nitrite NEGATIVE, Urine WBC (Auto ) 2, Urine RBC (Auto) 1, Urine Hyaline Casts (Auto) 13, Urine Bacteria (Auto) NEGATIVE, Urine Squamous Epithelial Cells 0, Urine Amorphous Sediment SMALLH, Urine Mucus (Auto) SMALL, Urine Sperm (Auto) CBC/BMP Laboratory Tests 05/02/17 18:26 Red Blood Count 3.47 L, Mean Corpuscular Volume 95.1, Mean Corpuscular Hemoglobin 29.6, Mean Corpuscular Hemoglobin Concent 31.2 L, Red Cell Distribution Width 14.0, Neutrophils (%) (Auto) 90.2 H, Lymphocytes (%) (Auto) 4.3 L, Monocytes (%) (Auto) 4.6, Eosinophils (%) (Auto) 0.1, Basophils (%) (Auto ) 0.1, Neutrophils # (Auto) 7.3, Lymphocytes # (Auto) 0.4 L, Monocytes # (Auto) 0.4, Eosinophils # (Auto) 0.0, Basophils # (Auto) 0.0, Calcium Level 9.5, Aspartate Amino Transf (AST/SGOT) 44 H, Alanine Aminotransferase (ALT/SGPT) 63, Total Creatine Kinase 18 L, Alkaline Phosphatase 141 H, Total Bilirubin 1.3 H, Total Protein 7.5, Albumin 1.8 L Plan / VTE VTE Prophylaxis Ordered?: Yes Plan Plan Hyperglycemia - likely 2/2 poorly controlled NIDDM2 - Presented with complaints of fatigue, weakness and elevated glucose - No complaints of nausea, vomiting, abdominal pain or confusion - Physical unrevealing - Glucose elevated at 300s; No anion gap elevation - Will hold oral hypoglycemic medications - Will check A1c - Will start insulin sliding scale and long acting insulin tonight - Will likely need insulin as an outpatient Acute kidney injury on CKD3 - likely 2/2 pre-renal etiology 2/2 Furosemide and osmotic diuresis 2/2 poorly controlled DM - Cr on arrival was 1.69 - Baseline Cr of 1.23 - Urinalysis with 3+ glucose - Will check urine electrolytes and urine osmolality - Will hold Lasix - Will check ECHO to determine EF - Will start low rate of IV fluids (re: peripheral edema) Normocytic anemia / Macrocytic anemia - Hg appears to be at baseline; mildly elevated - History of B12 deficiency Hyponatremia; likely 2/2 hyperglycemia - will control hyperglycemia 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 Lynn - Notes that he has a severely reduced appetite; will start Marinol HTN - BP well controlled - c/w Metoprolol 12.5 BID with holding parameters DLP - c/w Simvastatin Basal cell CA - s/p resection OA - c/w Tylenol PRN GERD - c/w Omeprazole DVT prophylaxis - Will start Heparin TAMMIE WHITE MD May 02, 2017 21:46
[2017-05-02 23:27] VITALS: BP 136/78
[2017-05-03] MEDS: DRONABINOL 2.5 MG CAP (MARINOL) PO SCH ×5 (00:17→21:00)
[2017-05-03] MEDS: METOPROLOL TART 25 MG TABLET PO SCH ×4 (00:18→21:00)
[2017-05-03] MEDS: LEVEMIR (INSULIN DETEMIR) 1 UNITS/0.01ML SC SCH ×2 (00:19→21:00)
[2017-05-03] MEDS: HumaLOG INSULIN (NovoLOG) PER UNIT SC SCH ×5 (00:20→21:00)
[2017-05-03] MEDS: SIMVASTATIN 20 MG TAB PO SCH ×2 (00:21→21:00)
[2017-05-03] MEDS: HEPARIN SOD (PORCINE) 5000 UNITS/ML VIAL SC SCH ×3 (05:17→22:00)
[2017-05-03 06:00] VITALS: BP 131/72
--- NOTE | 2017-05-03 08:24 | ECGEPIP ---
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
[2017-05-03 09:16] VITALS: BP 119/57
[2017-05-03] MEDS: CYANOCOBALAMIN 500 MCG TAB PO SCH (09:18)
[2017-05-03] MEDS: ALLOPURINOL 300 MG TAB PO SCH (09:18)
[2017-05-03] MEDS: OMEPRAZOLE 20 MG CAP PO SCH (09:19)
[2017-05-03] MEDS: ASPIRIN 81 MG ENTERIC TAB PO SCH (09:19)
[2017-05-03 10:59] LABS: BASO % 0.1 % (0.0-1.0); EOS % 0.4 % (0.0-3.0); LARGE UNSTAINED CELL # 0.1 K/mm3 (0.0-0.4); LARGE UNSTAINED CELL % 0.6 % (0.0-4.0); LYMPH # 0.2 K/mm3 (1.5-4.5); MEAN CORPUSCULAR HEMOGLOBIN 29.1 pg (27.0-33.0); MEAN CORPUSCULAR VOLUME 93.9 fl (80.0-96.0); MONO # 0.3 K/mm3 (0.0-0.8); MONO % 3.9 % (0.0-5.0); NEUTROPHILS # 7.3 K/mm3 (1.8-7.7); PLATELET COUNT, AUTOMATED 335 k/mm3 (150-450); WHITE BLOOD COUNT 7.9 K/mm3 (4.0-10.0)
[2017-05-03 11:27] LABS: ALBUMIN 1.7 GM/DL (3.2-5.2); ALBUMIN/GLOBULIN RATIO 0.45 (1.00-1.93); BILIRUBIN,TOTAL 1.6 MG/DL (0.2-1.0); CALCIUM LEVEL 8.8 MG/DL (8.8-10.2); CREATININE FOR GFR 1.39 MG/DL (0.70-1.30); GLOMERULAR FILTRATION RATE 52.2 (>35); POTASSIUM SERUM 4.5 MEQ/L (3.5-5.1); TOTAL PROTEIN 5.5 GM/DL (6.4-8.2)
[2017-05-03 14:00] VITALS: BP 128/71
--- NOTE | 2017-05-03 14:42 | REP ---
CHEST, TWO VIEWS: Two views of the chest are performed and compared to prior studies most recent of which is 08/15/2015. There is mild bibasilar fibrotic change which appears stable. There is mild elevation of the right hemidiaphragm. Calcified granuloma is seen on the right lower lobe laterally. Heart is not significantly enlarged. There is calcification of the thoracic aorta. The mediastinal silhouette is unchanged. There are mild degenerative changes of the spine. IMPRESSION: Stable chronic findings are without evidence of acute infiltrate. Signed by Andrew Albrecht MD 05/03/2017 04:01 P
[2017-05-03 15:44] VITALS: BP 142/72
[2017-05-03] MEDS: NS 1,000 ML IV SCH ×2 (16:04→22:35)
--- NOTE | 2017-05-03 16:07 | IPN ---
DATE: 05/03/2017 Rafiq is seen on [facility]. The patient with the patient and family, and I met separately with his son and daughter. I have reviewed Dr. Claudine Alvarado note from 04/26/2017. The patient has some abdominal pain but no nausea. He is feeling a little better. He has been started on Marinol and is a little more confused and lucid than he was earlier in the day. PHYSICAL EXAMINATION: VITAL SIGNS: Blood pressure 119/57, pulse of 100, respiratory rate 18. GENERAL APPEARANCE: He is lying in bed. He answers questions appropriately. NECK: No jugular venous distention (JVD). LUNGS: Decreased breath sounds. HEART: Regular rate and rhythm. ABDOMEN: Soft, distended. No masses. No right upper quadrant tenderness. EXTREMITIES: Trace peripheral edema. LABORATORY DATA: White count is 7.9, hemoglobin 9.7, and platelets 333. Hemoglobin A1c is 9%. BUN 48, creatinine 1.39, potassium 4.5. IMPRESSION: 1. Acute kidney injury, secondary to dehydration. Continue IV hydration. He is still dry. His oral intake has been poor and I think that is contributing to it. 2. Hyperglycemia, poorly controlled type 2 diabetes. He is on basal insulin with sliding scale. He will starting prednisone soon and his basal insulin dose will need to be escalated to adjust for this. 3. Diffuse B-cell lymphoma. I had a long discussion with the family. There seems to be a significant misunderstanding about the plan of treatment for Mr. Saab, primarily because Mr. Saab himself declined starting prednisone therapy both while in the hospital and upon discharge. This is well documented by Dr. Alvarado. I have distinct memory of discussing the diagnosis of lymphoma with Mr. Saab indicating that I was striving to get an office appointment with Dr. Alvarado as soon as possible after discharge and that she might want to start treatment at the time of that office visit, and Mr. Saab firmly stated that "I'm not going to start anything until I have time to think about it." When confronted with my memory of this and Dr. Alvarado' consistent documentation of Mr. Saab having declined starting prednisone, they did withdraw from their aggressive stance towards his care. Per the family, he does want to start prednisone at this time while in the hospital. I think at this point the Marinol has set in and he might not be in a position to understand that decision, but he seemed clear in his wishes this morning. I called Dr. Alvarado and we discussed the situation prior to visiting with the family. I have got a page into her to call back so I can tell her about my conversations with them and their request to start IV hydration and prednisone therapy today. I discussed and we filled out his medical orders for life-sustaining treatment (MOLST) form. He is DO NOT RESUSCITATE (DNR) status with limited medical interventions. He is DO NOT INTUBATE and no feeding tube. He does want IV fluids, antibiotics, hospitalization, and dialysis if necessary.
[2017-05-03 17:04] LABS: URIC ACID 4.6 MG/DL (3.5-7.2)
[2017-05-03] MEDS: predniSONE 50 MG TAB PO SCH (17:20)
[2017-05-03 19:55] VITALS: BP 132/76
--- NOTE | 2017-05-03 20:58 | CR ---
DATE OF CONSULTATION: 05/03/2017 MEDICAL ONCOLOGY INPATIENT CONSULTATIVE SERVICE . JACKIE Rodríguez, requested I see the patient for further medical oncology management recommendations. Mr. 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 This is his third hospitalization in 6 weeks for a low-grade abdominal pain or malaise, or weakness, or a combination thereof. He has had a fairly extensive gastrointestinal (GI) workup with the primary findings being of the mesenteric adenopathy which are gradually progressing but minimally since late March. He was seen in the office earlier this week with the anticipation of starting treatment, either high-dose corticosteroids or mini R-CHOP. However, during that visit he expressed deep reluctance at starting treatment, required wheelchair to move about and was clearly very diminished in his capacity. His family has felt overwhelmed in terms of taking care of him. The patient continues to live alone but requires near constant additional care. They are currently seeking other options. At the bedside, I had a long conversation with Rafiq's children Jasmin and Ara , another sister was present. Rafiq was not participating in the conversation, somnolent, reclining in bed, his dinner on a play before him, his eyes closed. I answered all of their questions, clearing up some misunderstanding about expectations. I reiterated my very guarded optimism that Mr. Saab will be able at this point to start chemotherapy, even modified, "mini" R-CHOP given his declining performance status, which currently is 4. He had declined from a performance status reportedly of about 2 to 3 when I saw him and now is even in a further state of decline. He is afebrile with mostly stable vital signs, mildly tachycardia but reporting great weakness at home and inability to walk about. Overall, my impression is that Mr. Saab's decline is perhaps multifactorial and certainly in part caused by his lymphoma. However, with a performance status of 3 or 4 at 81, he is unlikely to tolerate curative attempt chemotherapy and very likely to suffer complications and possibly of those complications. IMPRESSION: Double expresser diffuse large B-cell lymphoma in an 81-year-old man with bulky mesenteric adenopathy, declining performance status, now hospitalized with performance status 3 to 4, generalized malaise. He has suffered from anorexia and low-grade abdominal symptoms over the last 4 weeks or so. There has been mild progression of adenopathy on CT last week versus the last week in March. He has not had PET imaging and therefore his full staging is incomplete. His lab counts includes anemia, though no leukopenia or thrombocytopenia and therefore it is difficult to tell whether he has bone marrow involvement. Guarded expectations for this patient's ability to tolerate curative attempt chemotherapy. RECOMMENDATIONS: 1. I agree with starting prednisone 100 mg by mouth daily for a 5-day course. I discussed this earlier with Dr. Adams Mcbride and JACKIE Aguilar, as a palliative effort to try to help Mr. Saab with his lymphadenopathy and possibly improve his performance status. 2. Concomitant with this, proton pump inhibitor and allopurinol should be continued and LDH checked every few days. Should LDH exponentially rise, full tumor lysis labs should be evaluated and high intensity hydration such as 1-2 liters per day be started. 3. I spoke extensively with the patient's two healthcare proxies, his son and daughter, about what I think is overall a poor prognosis for Mr. Saab and the likely futility of heroic efforts. I count among heroic efforts starting chemotherapy. It may be at best we can slow the course of his disease with some corticosteroids, follow this up outpatient with rituximab but overall he appears to be in a decline, and it may be that palliative and hospice care are most appropriate given the potential toxicity of R-CHOP (Adriamycin, a cardiotoxic drug known to cause CHF, vincristine, a neuropathic drug also highly myelosuppressive, cyclophosphamide, highly myelosuppressive drug, and high-dose prednisone.) 4. Dr. Baldwin will be covering over the weekend for any complications. I left the room with Jasmin Bullock and I clearly agreeing that the prednisone was a palliative effort, if Mr. Saab does not improve markedly and improve his performance status, hospice care may be the right next step and that under no circumstance would I immediately start chemotherapy during this hospitalization in the next few days. The patient's performance status is too poor, his overall outlook too poor. MTDD
[2017-05-04 01:40] VITALS: BP 141/79
[2017-05-04] MEDS: HEPARIN SOD (PORCINE) 5000 UNITS/ML VIAL SC SCH ×3 (05:27→20:30)
[2017-05-04] MEDS: NS 1,000 ML IV SCH ×3 (05:27→20:37)
[2017-05-04 05:40] VITALS: BP 135/76
[2017-05-04 06:26] LABS: BASO % 0.1 % (0.0-1.0); EOS % 0.2 % (0.0-3.0); LARGE UNSTAINED CELL % 0.5 % (0.0-4.0); LYMPH # 0.3 K/mm3 (1.5-4.5); LYMPH % 3.4 % (24.0-44.0); MEAN CORPUSCULAR HEMOGLOBIN 29.2 pg (27.0-33.0); MEAN CORPUSCULAR HGB CONC 30.5 g/dl (32.0-36.5); MEAN CORPUSCULAR VOLUME 95.7 fl (80.0-96.0); MONO # 0.2 K/mm3 (0.0-0.8); NEUTROPHILS # 6.7 K/mm3 (1.8-7.7); NEUTROPHILS % 92.8 % (36.0-66.0); PLATELET COUNT, AUTOMATED 314 k/mm3 (150-450); RED CELL DISTRIBUTION WIDTH 13.9 % (11.5-14.5); WHITE BLOOD COUNT 7.2 K/mm3 (4.0-10.0)
[2017-05-04 07:08] LABS: ALBUMIN 1.4 GM/DL (3.2-5.2); ALBUMIN/GLOBULIN RATIO 0.29 (1.00-1.93); ALKALINE PHOSPHATASE 108 U/L (45-117); ALT/SGPT 45 U/L (12-78); ANION GAP 12 MEQ/L (8-16); AST/SGOT 52 U/L (15-37); BILIRUBIN,TOTAL 1.4 MG/DL (0.2-1.0); BLOOD UREA NITROGEN 39 MG/DL (7-18); CALCIUM LEVEL 8.8 MG/DL (8.8-10.2); CARBON DIOXIDE LEVEL 25 MEQ/L (21-32); CHLORIDE LEVEL 104 MEQ/L (98-107); GLOMERULAR FILTRATION RATE > 60.0 (>35); GLUCOSE, FASTING 289 MG/DL (83-110); SODIUM LEVEL 141 MEQ/L (136-145); TOTAL PROTEIN 6.2 GM/DL (6.4-8.2)
[2017-05-04 07:11] LABS: POTASSIUM SERUM 5.3 MEQ/L (3.5-5.1)
[2017-05-04] MEDS: DRONABINOL 2.5 MG CAP (MARINOL) PO SCH ×4 (09:14→20:31)
[2017-05-04] MEDS: METOPROLOL TART 25 MG TABLET PO SCH ×3 (09:14→20:31)
[2017-05-04] MEDS: predniSONE 50 MG TAB PO SCH (09:15)
[2017-05-04] MEDS: OMEPRAZOLE 20 MG CAP PO SCH (09:15)
[2017-05-04] MEDS: ASPIRIN 81 MG ENTERIC TAB PO SCH (09:15)
[2017-05-04] MEDS: CYANOCOBALAMIN 500 MCG TAB PO SCH (09:15)
[2017-05-04] MEDS: HumaLOG INSULIN (NovoLOG) PER UNIT SC SCH ×4 (09:15→20:29)
[2017-05-04] MEDS: ALLOPURINOL 300 MG TAB PO SCH (09:15)
[2017-05-04 10:00] VITALS: BP 153/72
[2017-05-04 14:00] VITALS: BP 142/82
[2017-05-04 18:00] VITALS: BP 134/70
[2017-05-04 20:05] VITALS: BP 136/71
[2017-05-04] MEDS ORDERED: HEPARIN SOD (PORCINE) 5000 UNITS/ML VIAL As Ordered ONE (20:24)
[2017-05-04] MEDS: LEVEMIR (INSULIN DETEMIR) 1 UNITS/0.01ML SC SCH (20:30)
[2017-05-04] MEDS: SIMVASTATIN 20 MG TAB PO SCH (20:30)
--- NOTE | 2017-05-04 22:05 | IPNPDOC ---
Subjective Date Seen The patient was seen on 05/04/17. Subjective Chief Complaint/HPI The patient is a 81-year-old male admitted with a reason for visit of [employer]; Uncontrolled Diabetes Mellitus. Events since last encounter Nursing reports concern with regards to the patient's confusion. Family had been out and spoke to them and they shared the same view; he seems much more confused than usual. At the time of my interview he was quite confused and could not answer questions clearly or consistently. General: Denies: Normal Appetite Pulmonary: Denies: Cough Cardiovascular: Denies: Chest Pain Psych: Reports: Memory Issues Objective Physical Examination General Exam: Positive: No Acute Distress, Negative: Alert, Cooperative Eye Exam: Positive: Conjunctiva & lids normal, Negative: Sclera icteric ENT Exam: Positive: Mucous membr. moist/pink Neck Exam: Negative: Lymphadenopathy Chest Exam: Positive: Clear to auscultation, Normal air movement Heart Exam: Positive: Rate Normal, Normal S1, Normal S2 Abdomen Exam: Positive: Normal bowel sounds, Soft, Negative: Tenderness Extremity Exam: Negative: Edema Psych Exam: Positive: Other (he seems a bit delirious or confused tonight) Assessment /Plan Problems (1) B-cell lymphoma Status: Chronic Problem Specific Plan: Consult Specialist, Monitor Clinically, Repeat Labs Problem Text: I believe many of his problems stem from his B-cell lymphoma. He is on a pulse of high-dose prednisone for palliation from this. This could certainly impact his mental status. Additionally he's been on Marinol for appetite stimulation. I wonder whether this is also adding to his confusion/ delirium. I decided to stop the Marinol this evening to see if it makes a difference. (2) Acute kidney injury Status: Acute Problem Specific Plan: Monitor Clinically, Repeat Labs Problem Text: His renal function has improved substantially with some IV fluids. We'll continue to monitor. (3) Diabetes mellitus Status: Chronic Problem Specific Plan: Monitor Clinically Problem Text: On SSI and Levemir. Monitor BS closely as pt is now on prednisone. Plan/VTE VTE Prophylaxis Ordered?: Yes VS, I&O, 24H, Fishbone Vital Signs/I&O Vital Signs Date Time Temp Pulse Resp B/P (MAP) Pulse Ox O2 Delivery O2 Flow Rate FiO2 05/04/17 20:31 115 136/71 05/04/17 18:00 98.7 21 92 05/04/17 14:00 Room Air I&O- Last 24 Hours up to 6 AM 05/04/17 05:59 Intake Total 530 ml Output Total 1140 ml Balance -610 ml Laboratory Data 24H LABS Laboratory Tests 2 05/04/17 05:59: White Blood Count 7.2, Red Blood Count 3.12L, Hemoglobin 9.1L, Hematocrit 29.9L , Mean Corpuscular Volume 95.7, Mean Corpuscular Hemoglobin 29.2, Mean Corpuscular Hemoglobin Concent 30.5L, Red Cell Distribution Width 13.9, Platelet Count 314, Neutrophils (%) (Auto) 92.8H, Lymphocytes (%) (Auto) 3.4L, Monocytes (%) (Auto) 3.0, Eosinophils (%) (Auto) 0.2, Basophils (%) (Auto) 0.1, Neutrophils # (Auto) 6.7, Lymphocytes # (Auto) 0.3L, Monocytes # (Auto) 0.2, Eosinophils # (Auto) 0.0, Basophils # (Auto) 0.0, Large Unclassified Cells % 0.5 , Large Unclassified Cells # 0.0, Anion Gap 12, Glomerular Filtration Rate > 60.0, Blood Urea Nitrogen 39H, Creatinine 1.10, Sodium Level 141, Potassium Level 5.3H, Chloride Level 104, Carbon Dioxide Level 25, Calcium Level 8.8, Aspartate Amino Transf (AST/SGOT) 52H, Alanine Aminotransferase (ALT/SGPT) 45, Lactate Dehydrogenase 586H, Alkaline Phosphatase 108, Total Bilirubin 1.4H, Total Protein 6.2L, Albumin 1.4L, Magnesium Level 2.0, Albumin/Globulin Ratio 0.29L CBC/BMP Laboratory Tests 05/04/17 05:59 Red Blood Count 3.12 L, Mean Corpuscular Volume 95.7, Mean Corpuscular Hemoglobin 29.2, Mean Corpuscular Hemoglobin Concent 30.5 L, Red Cell Distribution Width 13.9, Neutrophils (%) (Auto) 92.8 H, Lymphocytes (%) (Auto) 3.4 L, Monocytes (%) (Auto) 3.0, Eosinophils (%) (Auto) 0.2, Basophils (%) (Auto ) 0.1, Neutrophils # (Auto) 6.7, Lymphocytes # (Auto) 0.3 L, Monocytes # (Auto) 0.2, Eosinophils # (Auto) 0.0, Basophils # (Auto) 0.0, Calcium Level 8.8, Aspartate Amino Transf (AST/SGOT) 52 H, Alanine Aminotransferase (ALT/SGPT) 45, Lactate Dehydrogenase 586 H, Alkaline Phosphatase 108, Total Bilirubin 1.4 H, Total Protein 6.2 L, Albumin 1.4 L Manav Dalal MD May 04, 2017 22:05
[2017-05-05 01:50] VITALS: BP 138/73
[2017-05-05] MEDS: NS 1,000 ML IV SCH (03:16)
[2017-05-05] MEDS: HEPARIN SOD (PORCINE) 5000 UNITS/ML VIAL SC SCH ×3 (05:40→20:46)
[2017-05-05 05:55] VITALS: BP 159/79
[2017-05-05 06:30] LABS: EOS % 0.1 % (0.0-3.0); LARGE UNSTAINED CELL # 0.1 K/mm3 (0.0-0.4); LARGE UNSTAINED CELL % 0.9 % (0.0-4.0); LYMPH # 0.2 K/mm3 (1.5-4.5); LYMPH % 2.2 % (24.0-44.0); MEAN CORPUSCULAR HEMOGLOBIN 29.2 pg (27.0-33.0); MEAN CORPUSCULAR HGB CONC 30.2 g/dl (32.0-36.5); MEAN CORPUSCULAR VOLUME 96.7 fl (80.0-96.0); MONO # 0.4 K/mm3 (0.0-0.8); NEUTROPHILS # 7.5 K/mm3 (1.8-7.7); NEUTROPHILS % 91.7 % (36.0-66.0); PLATELET COUNT, AUTOMATED 363 k/mm3 (150-450); RED CELL DISTRIBUTION WIDTH 13.9 % (11.5-14.5); WHITE BLOOD COUNT 8.1 K/mm3 (4.0-10.0)
[2017-05-05 06:52] LABS: ALBUMIN 1.3 GM/DL (3.2-5.2); ALBUMIN/GLOBULIN RATIO 0.27 (1.00-1.93); ALKALINE PHOSPHATASE 108 U/L (45-117); ALT/SGPT 49 U/L (12-78); ANION GAP 10 MEQ/L (8-16); AST/SGOT 63 U/L (15-37); BLOOD UREA NITROGEN 32 MG/DL (7-18); CARBON DIOXIDE LEVEL 25 MEQ/L (21-32); CHLORIDE LEVEL 107 MEQ/L (98-107); CREATININE FOR GFR 0.87 MG/DL (0.70-1.30); GLOMERULAR FILTRATION RATE > 60.0 (>35); GLUCOSE, FASTING 296 MG/DL (83-110); POTASSIUM SERUM 4.5 MEQ/L (3.5-5.1); SODIUM LEVEL 142 MEQ/L (136-145); TOTAL PROTEIN 6.1 GM/DL (6.4-8.2)
[2017-05-05] MEDS: predniSONE 50 MG TAB PO SCH (09:00)
[2017-05-05] MEDS: ALLOPURINOL 300 MG TAB PO SCH (09:00)
[2017-05-05] MEDS: METOPROLOL TART 25 MG TABLET PO SCH ×3 (09:00→20:47)
[2017-05-05] MEDS: ASPIRIN 81 MG ENTERIC TAB PO SCH (09:00)
[2017-05-05] MEDS: CYANOCOBALAMIN 500 MCG TAB PO SCH (09:00)
[2017-05-05] MEDS: HumaLOG INSULIN (NovoLOG) PER UNIT SC SCH ×4 (09:00→20:46)
[2017-05-05] MEDS: OMEPRAZOLE 20 MG CAP PO SCH (09:01)
[2017-05-05 10:00] VITALS: BP 135/68
[2017-05-05 14:00] VITALS: BP 158/74
[2017-05-05 18:00] VITALS: BP 140/72
[2017-05-05] MEDS ORDERED: HEPARIN SOD (PORCINE) 5000 UNITS/ML VIAL As Ordered ONE (20:33)
[2017-05-05] MEDS: LEVEMIR (INSULIN DETEMIR) 1 UNITS/0.01ML SC SCH (20:46)
[2017-05-05] MEDS: SIMVASTATIN 20 MG TAB PO SCH (20:47)
[2017-05-05 22:00] VITALS: BP 152/74
[2017-05-06] VITALS (9 sets, daily range): BP systolic 118–147; BP diastolic 65–87
[2017-05-06] MEDS: HEPARIN SOD (PORCINE) 5000 UNITS/ML VIAL SC SCH ×3 (05:30→21:34)
[2017-05-06 06:24] LABS: MEAN CORPUSCULAR HEMOGLOBIN 29.6 pg (27.0-33.0); MEAN CORPUSCULAR HGB CONC 30.9 g/dl (32.0-36.5); MEAN CORPUSCULAR VOLUME 95.8 fl (80.0-96.0); RED CELL DISTRIBUTION WIDTH 14.1 % (11.5-14.5); WHITE BLOOD COUNT 7.5 K/mm3 (4.0-10.0)
[2017-05-06 06:53] LABS: ALBUMIN 1.4 GM/DL (3.2-5.2); ALBUMIN/GLOBULIN RATIO 0.39 (1.00-1.93); ALKALINE PHOSPHATASE 120 U/L (45-117); ALT/SGPT 62 U/L (12-78); ANION GAP 11 MEQ/L (8-16); AST/SGOT 74 U/L (15-37); BILIRUBIN,TOTAL 0.9 MG/DL (0.2-1.0); BLOOD UREA NITROGEN 30 MG/DL (7-18); CALCIUM LEVEL 8.8 MG/DL (8.8-10.2); CARBON DIOXIDE LEVEL 25 MEQ/L (21-32); CHLORIDE LEVEL 109 MEQ/L (98-107); CREATININE FOR GFR 0.85 MG/DL (0.70-1.30); GLOMERULAR FILTRATION RATE > 60.0 (>35); GLUCOSE, FASTING 272 MG/DL (83-110); MAGNESIUM LEVEL 1.6 MG/DL (1.8-2.4); POTASSIUM SERUM 4.4 MEQ/L (3.5-5.1); SODIUM LEVEL 145 MEQ/L (136-145)
--- NOTE | 2017-05-06 07:19 | ECHO ---
DATE OF PROCEDURE: 05/04/2017 DATE OF : 1935 AGE: 81 GENDER: Male HEIGHT: 71 inches WEIGHT: 291 pounds BODY SURFACE AREA: 2.47 meters squared INPATIENT: [address] [place] [address], Room 4228 REFERRING PHYSICIAN: Dr. Hayes INDICATION: Edema. MEASUREMENTS: 2D measurements: RV: 4.0 cm LV: 4.3 cm Septum: 1.1 cm Posterior wall: 1.1 cm Aortic root: 3.8 cm LA: 3.6 cm LVEF: 65% Doppler measurements: AV: 1.8 meters per second LVOT: 0.99 meters per second MV-E: 84, A: 120, EA ratio: 0.7 E prime: 7, A prime: 18, E/E prime ratio: 12 PV: 0.98 meters per second Pulmonary artery acceleration time: 103 milliseconds PASP: 33 mmHg IVC: 2.2 cm COMMENTS: Sinus tachycardia without intraventricular conduction disturbance. Technically difficult study in light of the patient's body habitus but diagnostically useful information was still obtained. Normal appearing cardiac chamber sizes and wall thickness. On real-time imaging from the parasternal and apical injections, wall motion was symmetrical and hyperkinetic. Slightly thickened mitral annulus but normal leaflet thickness and excursion with no posterior systolic buckling. Three equal size aortic cusps with slightly thickened cusp edges but adequate cusp separation. Aortic root size was upper limits of normal to slightly dilated but normal proximal ascending aortic diameter. No apparent intracardiac mass or pericardial effusion. Color flow Doppler study taken from the parasternal and apical projection showed trace mitral and tricuspid but no aortic insufficiency. Guided continuous wave Doppler of his aortic valve showed a normal peak systolic velocity against LV outflow tract obstruction. Pulsed and continuous wave Doppler of his LV inflow tract taken from the apical four-chamber projection showed normal diastolic filling velocities against mitral stenosis. There was more prominent late diastolic/atrial dependent filling pattern. A degree of impaired LV diastolic function which further confirmed using tissue Doppler of his mitral annulus but his current estimated mean left atrial pressure was normal. Pulsed and continuous wave Doppler of his pulmonary trunk showed a normal peak systolic velocity against RV outflow tract obstruction. His pulmonary artery acceleration time was borderline abbreviated consistent with slightly increased pulmonary vascular resistance and perhaps borderline pulmonary hypertension. We attempted to further estimate his right ventricular systolic pressure using guided continuous wave Doppler of his tricuspid valve but could not get a clear spectral envelope. His inferior vena cava was appropriate for his size and appeared to collapse against an elevated central venous pressure. CONCLUSIONS: Technically difficult study in light of his body habitus. Normal left ventricular size, wall thickness and hyperkinetic wall motion. Left atrial size upper limits of normal with Doppler evidence of an impairment of LV diastolic function but currently normal estimated mean left atrial pressure. Normal right heart chamber sizes and motion with single Doppler sign of borderline pulmonary hypertension. Normal IVC size and collapse against an elevated central venous pressure. Subtle degenerative changes of the mitral and aortic valvular apparatus without functional valvular abnormality. Copy To: Dr. Mcbride
[2017-05-06] MEDS: HumaLOG INSULIN (NovoLOG) PER UNIT SC SCH ×4 (07:49→21:33)
[2017-05-06] MEDS: METOPROLOL TART 25 MG TABLET PO SCH ×3 (09:00→21:34)
[2017-05-06] MEDS: predniSONE 50 MG TAB PO SCH (09:00)
[2017-05-06] MEDS: ASPIRIN 81 MG ENTERIC TAB PO SCH (09:00)
[2017-05-06] MEDS: CYANOCOBALAMIN 500 MCG TAB PO SCH (09:00)
[2017-05-06] MEDS: OMEPRAZOLE 20 MG CAP PO SCH (09:00)
[2017-05-06] MEDS: ALLOPURINOL 300 MG TAB PO SCH (09:00)
--- NOTE | 2017-05-06 10:39 | IPNPDOC ---
Subjective Date Seen The patient was seen on 05/06/17. Subjective Chief Complaint/HPI The patient is a 81-year-old male admitted with a reason for visit of Taqueria; Uncontrolled Diabetes Mellitus. Events since last encounter Pt sitting up in chair with family at bedside. Pt denies any pain, CP, SOB, Abd pain, Fevers. Family states baseline confusion unchanged. Constitutional: Denies: Chills, Fever Pulmonary: Denies: Dyspnea Cardiovascular: Denies: Chest Pain Gastrointestinal: Denies: Nausea, Vomiting, Abdominal Pain Objective Physical Examination General Exam: Positive: No Acute Distress, Negative: Alert, Cooperative Eye Exam: Positive: Conjunctiva & lids normal, Negative: Sclera icteric ENT Exam: Positive: Mucous membr. moist/pink Neck Exam: Negative: Lymphadenopathy Chest Exam: Positive: Clear to auscultation, Normal air movement Heart Exam: Positive: Rate Normal, Normal S1, Normal S2, Negative: Murmurs Abdomen Exam: Positive: Normal bowel sounds, Soft, Negative: Tenderness Extremity Exam: Negative: Edema Psych Exam: Positive: Mood NL, Oriented x 3 Assessment /Plan Problems (1) B-cell lymphoma Status: Chronic Problem Specific Plan: Consult Specialist, Monitor Clinically, Repeat Labs Problem Text: Seen by Dr Alvarado from Oncology who feels poor prognosis and advised a course of prednisone for palliative effort. She advises following LDH and should it rise, full tumor lysis labs should be done and high intensity hydration should be started. (2) Acute kidney injury Status: Acute Problem Specific Plan: Monitor Clinically, Repeat Labs Problem Text: 05/06 - Renal function improved with IVF. (3) Diabetes mellitus Status: Chronic Problem Specific Plan: Monitor Clinically Problem Text: On SSI and Levemir. Monitor BS closely as pt is now on prednisone. Plan/VTE VTE Prophylaxis Ordered?: Yes VS, I&O, 24H, Samybonrenata Vital Signs/I&O Vital Signs Date Time Temp Pulse Resp B/P (MAP) Pulse Ox O2 Delivery O2 Flow Rate FiO2 05/06/17 09:04 96.9 112 20 131/69 (89) 97 Room Air I&O- Last 24 Hours up to 6 AM 05/06/17 05:59 Intake Total 1740 ml Output Total 1425 ml Balance 315 ml Laboratory Data 24H LABS Laboratory Tests 2 05/05/17 15:55: Ammonia 11 05/06/17 06:08: Ammonia 26, Anion Gap 11, Glomerular Filtration Rate > 60.0, Blood Urea Nitrogen 30H, Creatinine 0.85, Sodium Level 145, Potassium Level 4.4, Chloride Level 109H, Carbon Dioxide Level 25, Calcium Level 8.8, Aspartate Amino Transf ( AST/SGOT) 74H, Alanine Aminotransferase (ALT/SGPT) 62, Lactate Dehydrogenase 493H, Alkaline Phosphatase 120H, Total Bilirubin 0.9, Total Protein 5.0L, Albumin 1.4L, Magnesium Level 1.6L, Albumin/Globulin Ratio 0.39L CBC/BMP Laboratory Tests 05/06/17 06:08 Red Blood Count 3.33 L, Mean Corpuscular Volume 95.8, Mean Corpuscular Hemoglobin 29.6, Mean Corpuscular Hemoglobin Concent 30.9 L, Red Cell Distribution Width 14.1, Calcium Level 8.8, Aspartate Amino Transf (AST/SGOT) 74 H, Alanine Aminotransferase (ALT/SGPT) 62, Lactate Dehydrogenase 493 H, Alkaline Phosphatase 120 H, Total Bilirubin 0.9, Total Protein 5.0 L, Albumin 1.4 L Attending Note Attending Note patient and daughter have agreed. patient will plan transfer to [facility] and then consult Hospice. Roberto Carlos Wong May 06, 2017 10:39 Ross Woodruff MD May 06, 2017 16:56
[2017-05-06] MEDS: LEVEMIR (INSULIN DETEMIR) 1 UNITS/0.01ML SC SCH (21:33)
[2017-05-06] MEDS: SIMVASTATIN 20 MG TAB PO SCH (21:34)
[2017-05-07] VITALS (8 sets, daily range): BP systolic 133–147; BP diastolic 70–83
[2017-05-07] MEDS: HEPARIN SOD (PORCINE) 5000 UNITS/ML VIAL SC SCH ×3 (05:42→21:25)
[2017-05-07 06:16] LABS: BASO % 0.2 % (0.0-1.0); EOS % 0.1 % (0.0-3.0); LARGE UNSTAINED CELL # 0.1 K/mm3 (0.0-0.4); LARGE UNSTAINED CELL % 0.9 % (0.0-4.0); LYMPH # 0.3 K/mm3 (1.5-4.5); LYMPH % 3.2 % (24.0-44.0); MEAN CORPUSCULAR HEMOGLOBIN 28.8 pg (27.0-33.0); MEAN CORPUSCULAR HGB CONC 30.2 g/dl (32.0-36.5); MEAN CORPUSCULAR VOLUME 95.5 fl (80.0-96.0); MONO # 0.3 K/mm3 (0.0-0.8); MONO % 5.6 % (0.0-5.0); NEUTROPHILS # 5.4 K/mm3 (1.8-7.7); PLATELET COUNT, AUTOMATED 342 k/mm3 (150-450)
[2017-05-07 06:43] LABS: ALBUMIN 1.4 GM/DL (3.2-5.2); ALBUMIN/GLOBULIN RATIO 0.36 (1.00-1.93); ALKALINE PHOSPHATASE 127 U/L (45-117); ALT/SGPT 76 U/L (12-78); ANION GAP 10 MEQ/L (8-16); AST/SGOT 76 U/L (15-37); BILIRUBIN,TOTAL 1.1 MG/DL (0.2-1.0); BLOOD UREA NITROGEN 31 MG/DL (7-18); CALCIUM LEVEL 9.2 MG/DL (8.8-10.2); CARBON DIOXIDE LEVEL 28 MEQ/L (21-32); CHLORIDE LEVEL 106 MEQ/L (98-107); CREATININE FOR GFR 0.86 MG/DL (0.70-1.30); GLOMERULAR FILTRATION RATE > 60.0 (>35); GLUCOSE, FASTING 282 MG/DL (83-110); MAGNESIUM LEVEL 1.7 MG/DL (1.8-2.4); POTASSIUM SERUM 4.7 MEQ/L (3.5-5.1); SODIUM LEVEL 144 MEQ/L (136-145); TOTAL PROTEIN 5.3 GM/DL (6.4-8.2)
[2017-05-07] MEDS: HumaLOG INSULIN (NovoLOG) PER UNIT SC SCH ×4 (07:51→21:25)
[2017-05-07] MEDS: ALLOPURINOL 300 MG TAB PO SCH (08:32)
[2017-05-07] MEDS: OMEPRAZOLE 20 MG CAP PO SCH (08:32)
[2017-05-07] MEDS: CYANOCOBALAMIN 500 MCG TAB PO SCH (08:32)
[2017-05-07] MEDS: ASPIRIN 81 MG ENTERIC TAB PO SCH (08:33)
[2017-05-07] MEDS: METOPROLOL TART 25 MG TABLET PO SCH ×3 (08:33→21:26)
[2017-05-07] MEDS: predniSONE 50 MG TAB PO SCH (08:33)
--- NOTE | 2017-05-07 10:31 | IPNPDOC ---
Subjective Date Seen The patient was seen on 05/07/17. Subjective Chief Complaint/HPI The patient is a 81-year-old male admitted with a reason for visit of Taqueria; Uncontrolled Diabetes Mellitus. Events since last encounter Pt with some continued confusion. Pt denies any pain, CP, SOB, abd pain. Daughter Ara at bedside. Constitutional: Denies: Chills, Fever Pulmonary: Denies: Dyspnea Cardiovascular: Denies: Chest Pain Gastrointestinal: Denies: Abdominal Pain Objective Physical Examination General Exam: Positive: No Acute Distress, Negative: Alert, Cooperative Eye Exam: Positive: Conjunctiva & lids normal, Negative: Sclera icteric ENT Exam: Positive: Mucous membr. moist/pink Neck Exam: Negative: Lymphadenopathy Chest Exam: Positive: Clear to auscultation, Normal air movement Heart Exam: Positive: Rate Normal, Normal S1, Normal S2, Negative: Murmurs Abdomen Exam: Positive: Normal bowel sounds, Soft, Negative: Tenderness Extremity Exam: Negative: Edema Psych Exam: Positive: Mood NL Assessment /Plan Problems (1) B-cell lymphoma Status: Chronic Problem Specific Plan: Consult Specialist, Monitor Clinically, Repeat Labs Problem Text: 05/07 - Dr Dalal spoke to pt and daughter Ara at length about the pt's condition and poor prognosis. He has been on palliative prednisone 100 mg daily for 5 days for a planned 5 day course as advised by Dr Alvarado. Will d/c the prednisone today. Dr Dalal discussed further workup vs palliative care/ hospice. Pt and family do not want further workup. Pt and family is interested in hospice and possible placement and hospice. 05/06 - Seen by Dr Alvarado from Oncology who feels poor prognosis and advised a course of prednisone for palliative effort. She advises following LDH and should it rise, full tumor lysis labs should be done and high intensity hydration should be started. (2) Acute kidney injury Status: Acute Problem Specific Plan: Monitor Clinically, Repeat Labs Problem Text: 05/06 - Renal function improved with IVF. (3) Diabetes mellitus Status: Chronic Problem Specific Plan: Monitor Clinically Problem Text: On SSI and Levemir. Monitor BS closely as pt is now on prednisone. Plan/VTE VTE Prophylaxis Ordered?: Yes Plan Family Medicine Attending Note: I saw and examined Mr. Saab, discussed with YVETTE Putnam. Agree with their note as documented. I met and spoke with his daughter/healthcare proxy. We just discussed his condition and prognosis. He will be done with high-dose prednisone tomorrow. She is aware that this was palliative. The family is looking into options for hospice including the hospice house. We will support them in their efforts to care for him and the best way we can. 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, 24H, Fishbone Vital Signs/I&O Vital Signs Date Time Temp Pulse Resp B/P (MAP) Pulse Ox O2 Delivery O2 Flow Rate FiO2 05/07/17 08:33 110 140/72 05/07/17 08:30 97.0 20 91 Room Air I&O- Last 24 Hours up to 6 AM 05/07/17 06:00 Intake Total 340 ml Output Total 950 ml Balance -610 ml Laboratory Data 24H LABS Laboratory Tests 2 05/07/17 05:55: White Blood Count 6.0, Red Blood Count 3.67L, Hemoglobin 10.6L, Hematocrit 35.0L , Mean Corpuscular Volume 95.5, Mean Corpuscular Hemoglobin 28.8, Mean Corpuscular Hemoglobin Concent 30.2L, Red Cell Distribution Width 14.0, Platelet Count 342, Neutrophils (%) (Auto) 90.0H, Lymphocytes (%) (Auto) 3.2L, Monocytes (%) (Auto) 5.6H, Eosinophils (%) (Auto) 0.1, Basophils (%) (Auto) 0.2 , Neutrophils # (Auto) 5.4, Lymphocytes # (Auto) 0.3L, Monocytes # (Auto) 0.3, Eosinophils # (Auto) 0.0, Basophils # (Auto) 0.0, Large Unclassified Cells % 0.9 , Large Unclassified Cells # 0.1, Anion Gap 10, Glomerular Filtration Rate > 60.0, Blood Urea Nitrogen 31H, Creatinine 0.86, Sodium Level 144, Potassium Level 4.7, Chloride Level 106, Carbon Dioxide Level 28, Calcium Level 9.2, Aspartate Amino Transf (AST/SGOT) 76H, Alanine Aminotransferase (ALT/SGPT) 76, Lactate Dehydrogenase 448H, Alkaline Phosphatase 127H, Total Bilirubin 1.1H, Total Protein 5.3L, Albumin 1.4L, Magnesium Level 1.7L, Albumin/Globulin Ratio 0.36L CBC/BMP Laboratory Tests 05/07/17 05:55 Red Blood Count 3.67 L, Mean Corpuscular Volume 95.5, Mean Corpuscular Hemoglobin 28.8, Mean Corpuscular Hemoglobin Concent 30.2 L, Red Cell Distribution Width 14.0, Neutrophils (%) (Auto) 90.0 H, Lymphocytes (%) (Auto) 3.2 L, Monocytes (%) (Auto) 5.6 H, Eosinophils (%) (Auto) 0.1, Basophils (%) ( Auto) 0.2, Neutrophils # (Auto) 5.4, Lymphocytes # (Auto) 0.3 L, Monocytes # ( Auto) 0.3, Eosinophils # (Auto) 0.0, Basophils # (Auto) 0.0, Calcium Level 9.2, Aspartate Amino Transf (AST/SGOT) 76 H, Alanine Aminotransferase (ALT/SGPT) 76, Lactate Dehydrogenase 448 H, Alkaline Phosphatase 127 H, Total Bilirubin 1.1 H, Total Protein 5.3 L, Albumin 1.4 L Roberto Carlos Wong May 07, 2017 10:31 Manav Dalal MD May 10, 2017 22:06
[2017-05-07] MEDS: MAGNESIUM OXIDE 400 MG TAB (MAG-OX) PO SCH (11:02)
[2017-05-07] MEDS: SIMVASTATIN 20 MG TAB PO SCH (21:24)
[2017-05-07] MEDS: LEVEMIR (INSULIN DETEMIR) 1 UNITS/0.01ML SC SCH (21:25)
[2017-05-08 02:00] VITALS: BP 160/74
[2017-05-08] MEDS: HEPARIN SOD (PORCINE) 5000 UNITS/ML VIAL SC SCH ×2 (05:12→14:35)
[2017-05-08 06:00] VITALS: BP 138/90
[2017-05-08 07:28] LABS: BASO % 0.1 % (0.0-1.0); EOS % 0.1 % (0.0-3.0); LARGE UNSTAINED CELL # 0.1 K/mm3 (0.0-0.4); LYMPH # 0.2 K/mm3 (1.5-4.5); LYMPH % 3.9 % (24.0-44.0); MEAN CORPUSCULAR HEMOGLOBIN 29.1 pg (27.0-33.0); MEAN CORPUSCULAR HGB CONC 30.5 g/dl (32.0-36.5); MEAN CORPUSCULAR VOLUME 95.2 fl (80.0-96.0); MONO # 0.4 K/mm3 (0.0-0.8); MONO % 6.6 % (0.0-5.0); NEUTROPHILS # 5.3 K/mm3 (1.8-7.7); NEUTROPHILS % 88.3 % (36.0-66.0); PLATELET COUNT, AUTOMATED 318 k/mm3 (150-450); RED CELL DISTRIBUTION WIDTH 13.8 % (11.5-14.5)
[2017-05-08 07:56] LABS: ALBUMIN 1.4 GM/DL (3.2-5.2); ALKALINE PHOSPHATASE 113 U/L (45-117); ALT/SGPT 65 U/L (12-78); ANION GAP 8 MEQ/L (8-16); AST/SGOT 61 U/L (15-37); BILIRUBIN,TOTAL 1.2 MG/DL (0.2-1.0); BLOOD UREA NITROGEN 29 MG/DL (7-18); CALCIUM LEVEL 9.7 MG/DL (8.8-10.2); CARBON DIOXIDE LEVEL 30 MEQ/L (21-32); CHLORIDE LEVEL 106 MEQ/L (98-107); CREATININE FOR GFR 0.91 MG/DL (0.70-1.30); GLOMERULAR FILTRATION RATE > 60.0 (>35); GLUCOSE, FASTING 251 MG/DL (83-110); MAGNESIUM LEVEL 1.7 MG/DL (1.8-2.4); POTASSIUM SERUM 4.8 MEQ/L (3.5-5.1); SODIUM LEVEL 144 MEQ/L (136-145)
[2017-05-08 07:58] VITALS: BP 142/72
[2017-05-08] MEDS: HumaLOG INSULIN (NovoLOG) PER UNIT SC SCH ×2 (08:10→13:17)
[2017-05-08] MEDS: OMEPRAZOLE 20 MG CAP PO SCH (08:10)
[2017-05-08] MEDS: ASPIRIN 81 MG ENTERIC TAB PO SCH (08:10)
[2017-05-08] MEDS: ALLOPURINOL 300 MG TAB PO SCH (08:10)
[2017-05-08] MEDS: CYANOCOBALAMIN 500 MCG TAB PO SCH (08:11)
[2017-05-08] MEDS: MAGNESIUM OXIDE 400 MG TAB (MAG-OX) PO SCH (08:11)
[2017-05-08] MEDS: METOPROLOL TART 25 MG TABLET PO SCH ×2 (08:11→15:18)
--- NOTE | 2017-05-08 09:48 | IPNPDOC ---
Subjective Date Seen The patient was seen on 05/08/17. Subjective Chief Complaint/HPI The patient is a 81-year-old male admitted with a reason for visit of Taqueria; Uncontrolled Diabetes Mellitus. Events since last encounter Pt denies any new issues. Denies any pain. Constitutional: Denies: Chills, Fever Pulmonary: Denies: Dyspnea Cardiovascular: Denies: Chest Pain Gastrointestinal: Denies: Abdominal Pain Objective Physical Examination General Exam: Positive: No Acute Distress, Negative: Alert, Cooperative Eye Exam: Positive: Conjunctiva & lids normal, Negative: Sclera icteric ENT Exam: Positive: Mucous membr. moist/pink Neck Exam: Negative: Lymphadenopathy Chest Exam: Positive: Clear to auscultation, Normal air movement Heart Exam: Positive: Rate Normal, Normal S1, Normal S2 Abdomen Exam: Positive: Normal bowel sounds, Soft, Negative: Tenderness Extremity Exam: Negative: Edema Psych Exam: Positive: Other Assessment /Plan Problems (1) B-cell lymphoma Status: Chronic Problem Specific Plan: Consult Specialist, Monitor Clinically, Repeat Labs Problem Text: 05/08 - Hospice was consulted. Family and PFS working on placement. 05/07 - Dr Dalal spoke to pt and daughter Ara at length about the pt's condition and poor prognosis. He has been on palliative prednisone 100 mg daily for 5 days for a planned 5 day course as advised by Dr Alvarado. Will d/c the prednisone today. Dr Dalal discussed further workup vs palliative care/hospice. Pt and family do not want further workup. Pt and family is interested in hospice and possible placement and hospice. 05/06 - Seen by Dr Alvarado from Oncology who feels poor prognosis and advised a course of prednisone for palliative effort. She advises following LDH and should it rise, full tumor lysis labs should be done and high intensity hydration should be started. I believe many of his problems stem from his B-cell lymphoma. He is on a pulse of high-dose prednisone for palliation from this. This could certainly impact his mental status. Additionally he's been on Marinol for appetite stimulation. I wonder whether this is also adding to his confusion/delirium. I decided to stop the Marinol this evening to see if it makes a difference. (2) Acute kidney injury Status: Acute Problem Specific Plan: Monitor Clinically, Repeat Labs Problem Text: His renal function has improved substantially with some IV fluids. We'll continue to monitor. (3) Diabetes mellitus Status: Chronic Problem Specific Plan: Monitor Clinically Problem Text: On SSI and Levemir. Plan/VTE VTE Prophylaxis Ordered?: Yes Plan Family Medicine Attending Note: I saw and examined Mr. Saab, discussed with YVETTE Putnam. Agree with their note as documented. Later this same day he was able to get her at the hospice facility and was discharged. Please see the discharge summary for full details. 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, I&O, 24H, Fishbone Vital Signs/I&O Vital Signs Date Time Temp Pulse Resp B/P (MAP) Pulse Ox O2 Delivery O2 Flow Rate FiO2 05/08/17 08:11 107 142/72 05/08/17 07:58 97.9 19 97 Room Air I&O- Last 24 Hours up to 6 AM 05/08/17 06:00 Intake Total 240 ml Output Total 1450 ml Balance -1210 ml Laboratory Data 24H LABS Laboratory Tests 2 05/07/17 11:54: Bedside Glucose (Misc Panel) 275H 05/07/17 16:34: Bedside Glucose (Misc Panel) 268H 05/07/17 20:32: Bedside Glucose (Misc Panel) 274H 05/08/17 06:52: White Blood Count 6.0, Red Blood Count 3.57L, Hemoglobin 10.4L, Hematocrit 34.0L , Mean Corpuscular Volume 95.2, Mean Corpuscular Hemoglobin 29.1, Mean Corpuscular Hemoglobin Concent 30.5L, Red Cell Distribution Width 13.8, Platelet Count 318, Neutrophils (%) (Auto) 88.3H, Lymphocytes (%) (Auto) 3.9L, Monocytes (%) (Auto) 6.6H, Eosinophils (%) (Auto) 0.1, Basophils (%) (Auto) 0.1 , Neutrophils # (Auto) 5.3, Lymphocytes # (Auto) 0.2L, Monocytes # (Auto) 0.4, Eosinophils # (Auto) 0.0, Basophils # (Auto) 0.0, Large Unclassified Cells % 1.0 , Large Unclassified Cells # 0.1, Anion Gap 8, Glomerular Filtration Rate > 60.0 , Blood Urea Nitrogen 29H, Creatinine 0.91, Sodium Level 144, Potassium Level 4.8, Chloride Level 106, Carbon Dioxide Level 30, Calcium Level 9.7, Aspartate Amino Transf (AST/SGOT) 61H, Alanine Aminotransferase (ALT/SGPT) 65, Lactate Dehydrogenase 484H, Alkaline Phosphatase 113, Total Bilirubin 1.2H, Total Protein 6.0L, Albumin 1.4L, Magnesium Level 1.7L, Albumin/Globulin Ratio 0.30L CBC/BMP Laboratory Tests 05/08/17 06:52 Red Blood Count 3.57 L, Mean Corpuscular Volume 95.2, Mean Corpuscular Hemoglobin 29.1, Mean Corpuscular Hemoglobin Concent 30.5 L, Red Cell Distribution Width 13.8, Neutrophils (%) (Auto) 88.3 H, Lymphocytes (%) (Auto) 3.9 L, Monocytes (%) (Auto) 6.6 H, Eosinophils (%) (Auto) 0.1, Basophils (%) ( Auto) 0.1, Neutrophils # (Auto) 5.3, Lymphocytes # (Auto) 0.2 L, Monocytes # ( Auto) 0.4, Eosinophils # (Auto) 0.0, Basophils # (Auto) 0.0, Calcium Level 9.7, Aspartate Amino Transf (AST/SGOT) 61 H, Alanine Aminotransferase (ALT/SGPT) 65, Lactate Dehydrogenase 484 H, Alkaline Phosphatase 113, Total Bilirubin 1.2 H, Total Protein 6.0 L, Albumin 1.4 L Roberto Carlos Wong May 08, 2017 09:48 Manav Dalal MD May 10, 2017 22:46
[2017-05-08 10:00] VITALS: BP 138/70
[2017-05-08 14:00] VITALS: BP 153/82
[2017-05-08] MEDS ORDERED: LORA0.5T11 PO (14:50)
[2017-05-08] MEDS ORDERED: MORP20SO3 PO (14:50)
[2017-05-08] MEDS ORDERED: HYOS125TA PO (14:50)
[2017-05-08 15:18] VITALS: BP 153/87
--- NOTE | 2017-05-29 13:22 | DSES ---
DATE OF ADMISSION: 05/02/2017 DATE OF DISCHARGE: 05/08/2017 PRIMARY CARE PHYSICIAN: Dr. Adams Mcbride and Chelsea Mcbride PA-C. ATTENDING PHYSICIAN: Manav Dalal MD CONSULTANTS: HISTORY OF PRESENT ILLNESS: Rafiq Saab is an 81-year-old male patient who follows with Dr. Adams Mcbride and JACKIE Hernández at the [facility], who came to the emergency department because of fatigue, weakness and hyperglycemia. The patient was admitted with hyperglycemia likely secondary to poorly controlled diabetes mellitus type 2 as well as acute kidney injury on chronic kidney disease. 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 He was admitted. He was started on IV hydration and placed on insulin sliding scale. The patient does have a history of diffuse B-cell lymphoma and follows with Dr. Alvarado as an outpatient. Both Dr. Mcbride and Dr. Dalal met with the family to discuss the patient's condition and Dr. Alvarado was consulted and saw the patient. Overall, it was felt that the patient's B-cell lymphoma presented a poor prognosis. He was placed on palliative prednisone for a five day course. The patient did have some altered mental status, which was felt to be related to the B-cell lymphoma. The family discussed options with Dr. Dalal including further workup versus palliative care and hospice. The family and patient ultimately elected on hospice and the patient was discharged to the hospice facility on 05/08/2017. The patient's renal function did improve with the IV fluids. During the course of hospitalization he was on sliding-scale insulin and Levemir for the diabetes mellitus type 2. PHYSICAL EXAMINATION: Temperature 96.8, pulse 104, respiratory rate 19, blood pressure 153/87, pulse ox 97% on room air. GENERAL: The patient was alert with no acute distress. CHEST: Clear to auscultation. No wheezes, rales or rhonchi. HEART: Regular rate and rhythm. ABDOMEN: Positive bowel sounds, soft, nontender. EXTREMITIES: No edema. LABORATORIES: WBC 6.0, hemoglobin 10.4, hematocrit 34.0, platelets 318. Sodium 144, potassium 4.8, chloride 106, carbon dioxide 30, BUN 29, creatinine 0.91, glucose 251, calcium 9.7, magnesium 1.7, total bilirubin 1.2, AST 61, ALT 65, alkaline phosphatase 113, lactate dehydrogenase 484, total protein 6.0, albumin 1.4. DISCHARGE MEDICATIONS: - hyoscyamine sulfate 0.125 mg sublingual every 4 hours as needed for terminal secretions - lorazepam 0.5 mg every 4 hours as needed for anxiety or agitation - morphine sulfate 100 mg/5 mL 0.25 to 1 mL by mouth every 2 hours as needed for pain or dyspnea DISCHARGE INSTRUCTIONS: The patient will be discharged to the hospice house. Activity as tolerated. Diet is consistent carbohydrate. DISCHARGE DIAGNOSES: 1. B-cell lymphoma. 2. Acute kidney injury on chronic kidney disease. 3. Diabetes mellitus type 2. 4. Hypertension. 5. Hypomagnesemia. 6. Gastroesophageal reflux disease (GERD). 7. Dyslipidemia.
== END 2017-05-08 15:52 | disposition home or self-care (01) | DRG 638 ==
LOC: M ED 15:19 → OBSVTOIN 20:39 → M ED INP 20:39 → M MSPAV 23:22
PROVIDERS: ADMIT Internal Medicine; ATTEND Family Medicine
DX: E11.65 Type 2 diabetes mellitus with hyperglycemia (principal); N17.9 Acute kidney failure, unspecified; E87.1 Hypo-osmolality and hyponatremia; C85.13 Unspecified B-cell lymphoma, intra-abdominal lymph nodes; Z66 Do not resuscitate; K21.9 Gastro-esophageal reflux disease without esophagitis; I12.9 Hypertensive chronic kidney disease with stage 1 through stage 4 chronic kidney disease, or unspecified chronic kidney disease; E78.5 Hyperlipidemia, unspecified; N18.3 Chronic kidney disease, stage 3 (moderate); Z79.82 Long term (current) use of aspirin; Z79.84 Long term (current) use of oral hypoglycemic drugs; Z79.899 Other long term (current) drug therapy; Z87.891 Personal history of nicotine dependence

== ENCOUNTER → 2017-05-02 | Outpatient (REF) | payer MEDICARE, OTHER ==
[~2017-05-02] MED LIST changes: +ALLO15TA PO; +ASPI81TAEC PO; +HYOS125TA PO; +LORA0.5T11 PO; +MAG400TA PO; +METO1TAB87 PO; +MORP20SO3 PO; +NAPR1TAB86 PO; +OMEP20CA3 PO; +VITA100072 PO; +ZYLO300T4 PO
[2017-05-02 14:38] LABS: PHOSPHORUS LEVEL 4.2 MG/DL (2.5-4.9); URIC ACID 4.4 MG/DL (3.5-7.2)
== END ==
LOC: M LAB REF 08:35
PROVIDERS: ATTEND Internal Medicine Medical Oncology
DX: C85.90 Non-Hodgkin lymphoma, unspecified, unspecified site (principal)